=== PATIENT | male | born 1930 | race Asian ===

== ENCOUNTER 2017-05-27 10:33 | Inpatient (IN) | payer OTHER, MEDICARE ==
[~2017-05-27] VITALS: Ht 167.6 cm; Wt 71.2 kg
[~2017-05-27 10:33] MED LIST: AMLODIPINE BESYL5 M1 PO; ATENOLOL25 M1 PO; AZITHROMYCIN500 M3 PO; CALCIUM CARBON500 M2 PO; FUROSEMIDE80 M1 PO; LANTUS SOL100 UNIT/1 SC; LISINOPRIL5 M1 PO; NEPHRO-VITE TA0.8 MG PO; NOVOLOG FL100 UNIT/1 SC; PREDNISONE10 M2 PO; PROCRIT3000 UNIT/ IV; PROTONIX40 M3 PO
--- NOTE | 2017-05-27 10:37 | ED DYSPNEA/ASTHMA COMPLAINT ---
History of Present Illness General Chief Complaint: Dyspnea (COPD, CHF, Other) Stated Complaint: SOB Source: patient, old records, EMS Exam Limitations: no limitations Vital Signs & Intake/Output Vital Signs & Intake/Output Vital Signs Date Time Temp Pulse Resp B/P B/P Pulse O2 O2 Flow FiO2 Mean Ox Delivery Rate 05/27 1112 88 156/50 05/27 1112 87 98 05/27 1102 98.2 90 28 191/82 99 Nasal 2.0L Cannula 05/27 1054 94 05/27 1045 Nasal 2.0L Cannula Allergies Coded Allergies: No Known Allergies (11/03/16) Reconcile Medications Albuterol Sulfate (Ventolin Hfa) 90 MCG HFA.AER.AD 2 PUF INH Q4-6 PRN PRN SHORTNESS OF BREATH (Reported) Amlodipine Besylate 5 MG TABLET 1 TAB PO DAILY HTN Atenolol 25 MG TABLET 1 TAB PO DAILY blood pressure (Reported) Budesonide/Formoterol Fumarate (Symbicort 160-4.5 Mcg Inhaler) 160 MCG-4.5 MCG/ ACTUATION HFA.AER.AD 2 PUF INH BID BREATHING PROBLEMS (Reported) Furosemide 80 MG TABLET 1 TAB PO 2XW FLuid overload (Reported) Insulin Aspart, Recombinant (Novolog Flexpen) 100 UNIT/ML INSULN.PEN 1 UNIT SC TIDAC DM (Reported) Insulin Glargine,Hum.rec.anlog (Lantus Solostar) 100 UNIT/ML (3 ML) INSULN.PEN 4 UNIT SC QPM DIABETES MELLITUS (Reported) Lisinopril 5 MG TABLET 1 TAB PO DAILY blood pressure (Reported) Midodrine HCl 5 MG TABLET 1 TAB PO DAILY BEFORE DIALYSIS (Reported) Pantoprazole Sodium (Protonix) 40 MG TABLET.DR 1 TAB PO DAILY GERD Triage Nurses Notes Reviewed? yes HPI: Patient sent from dialysis for increasing shortness of breath. Staff states that they have noticed that he has been having increasing work of breathing over the past 2-3 dialysis sessions. They have been taking off more fluid than normal and attempt to help him however today it was more short of breath. Patient does have a history of COPD and is chronically on oxygen. Patient has a productive cough. He denies any chest pain or chest tightness. There is no nausea or vomiting. Patient finished his course of dialysis today and then came in for evaluation. Past History Medical History Any Pertinent Medical History? 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 No Review of Systems Review of Systems Constitutional: Reports: no symptoms. EENTM: Reports: no symptoms. Respiratory: Reports: see HPI, short of breath. Cardiovascular: Reports: no symptoms. GI: Reports: no symptoms. Genitourinary: Reports: no symptoms. Musculoskeletal: Reports: no symptoms. Skin: Reports: no symptoms. Neurological/Psychological: Reports: no symptoms. Hematologic/Endocrine: Reports: no symptoms. Immunologic/Allergic: Reports: no symptoms. All Other Systems: Reviewed and Negative Physical Exam Physical Exam General Appearance: well developed/nourished, alert, awake, anxious, moderate distress Head: atraumatic Eyes: Bilateral: PERRL, EOMI. Ears, Nose, Throat: normal pharynx, normal ENT inspection, hearing grossly normal Neck: normal inspection, supple, full range of motion, JVD Respiratory: respiratory distress, PROLONGED EXPIRATION WHEEZING SCATTERED RHONCHI Cardiovascular: regular rate/rhythm, edema Gastrointestinal: normal bowel sounds, soft, non-tender, no organomegaly Extremities: pedal edema Neurologic/Psych: no motor/sensory deficits, awake, alert, oriented x 3 Skin: intact, normal color, warm/dry Core Measures ACS in differential dx? Yes CVA/TIA Diagnosis No Sepsis Present: No Sepsis Focused Exam Completed? No Progress Differential Diagnosis: bronchitis, CHF, COPD, pneumonia Plan of Care: Orders Procedure Date/time Status Heart Healthy Diet 05/27 D Active Patient Data 05/27 1240 Active ED Holding Orders 05/27 1238 Active Admit to inpatient 05/27 1238 Active Vital Signs 05/27 1238 Active Code Status 05/27 1238 Active BLOOD CULTURE 05/27 1145 Active ARTERIAL BLOOD GAS (GEN) 05/27 1037 Complete Telemetry/Recording Studio Set Up Worker 05/27 1037 Active TROPONIN LEVEL 05/27 1037 Complete COMPREHENSIVE METABOLIC PANEL 05/27 1037 Complete CBC WITHOUT DIFFERENTIAL 05/27 1037 Complete EKG 05/27 1034 Active BIPAP 05/27 UNK Complete Current Medications Sig/Rina Start time Last Medication Dose Stop Time Status Admin Azithromycin 500 MG ONCE ONE 05/27 1145 AC (Zithromax) 05/27 1244 Dextrose/Water 250 ML (D5W) Laboratory Tests 05/27/17 1116: Anion Gap 19 H, Estimated GFR 14 L, BUN/Creatinine Ratio 8.3, Glucose 186 H, Calcium 9.3, Total Bilirubin 0.6, AST 23, ALT 27, Alkaline Phosphatase 235 H, Troponin I 0.03, Total Protein 8.3 H, Albumin 4.2, Globulin 4.1, Albumin/ Globulin Ratio 1.0 L, CBC w Diff NO MAN DIFF REQ, RBC 3.89 L, MCV 93.5, MCH 30.8, MCHC 32.9 L, RDW 14.8 H, MPV 9.5, Gran % 79.3 H, Lymphocytes % 7.6 L, Monocytes % 10.5 H, Eosinophils % 2.3, Basophils % 0.3, Absolute Granulocytes 5.1, Absolute Lymphocytes 0.5 L, Absolute Monocytes 0.7 H, Absolute Eosinophils 0.1, Absolute Basophils 0 05/27/17 1045: pH 7.26 *L, pCO2 49 H, pO2 120 H, HCO3 22, ABG O2 Sat (Measured) 97.0, Carboxyhemoglobin 0.7 L, O2 Concentration % 7L, O2 Delivery Method NEB TX, Phlebotomy Draw Site RIGHT RADIAL Microbiology 05/27 1232 BLOOD: Blood Culture - RECD 05/27 1223 BLOOD: Blood Culture - RECD Diagnostic Imaging: Viewed by Me: Radiology Read. Discussed w/RAD: Radiology Read. CXR Impression: PATIENT: LEN MADERA PRESENT AGE: 86 PATIENT ACCOUNT NO: [id number] : 30 LOCATION: [facility] ORDERING PHYSICIAN: Joey Sanchez MD SERVICE DATE: 05/27/17-1037 EXAM TYPE: RAD - XRY- PORTABLE CHEST XRAY EXAMINATION: XR PORTABLE CHEST CLINICAL INFORMATION: Shortness of breath. COMPARISON: 11/04/2016. TECHNIQUE: Portable frontal view of the chest was obtained. FINDINGS: Mild hyperinflated lung field is present bilaterally. Persistent stable mild bilateral perihilar, and upper lobar prominent bronchovascular markings are noted, may represent mild pulmonary venous congestion. No discrete superimposed focal airspace disease present. There is no pleural effusion present. The cardiomediastinal silhouette is within normal limit. Incidental note is made of a radiopaque stent projecting over the right infraclavicular region medially, unchanged. IMPRESSION: Possible mild pulmonary venous congestion, appears similar to prior study dated 11/04/2016. DICTATED BY: Dory Cornejo MD DATE/TIME DICTATED:05/27/171157 JAVA SYSTEMS ANALYST:TARUN DATE/TIME TRANSCRIBED:05/27/171157 CONFIDENTIAL, DO NOT COPY WITHOUT APPROPRIATE AUTHORIZATION. <Electronically signed in Other Vendor System> SIGNED BY: Dory Cornejo MD 05/27/17 1203 Initial ED EKG: NSR, nonspecific ST T wave chg Prior EKG: unchanged Rhythm Strip: normal sinus rhythm Departure Departure Disposition: STILL A PATIENT Condition: Stable Clinical Impression Primary Impression: Hypercapnic respiratory failure Referrals: Leslie Palmer MD (PCP/Family) Departure Forms: Customer Survey General Discharge Information Admission Note Spoke With: Jhonaa Cazares MD Documentation of Exam: Documentation of any treatments & extenuating circumstances including Concerns Regarding Discharge (functional status, medication knowledge or non-compliance, living conditions, etc.) that warrant an admission rather than observation: [ BIPAP, RESP THERAPY,PULM CONSULT, IV ABX, IVSTEROIDS, NEBS] Critical Care Note Critical Care Note Critical Care Time: mins: (90 MIN)
[2017-05-27] MEDS ORDERED: SYMBICORT 16010.2 GM INH (10:39)
[2017-05-27] MEDS ORDERED: MIDODRINE HCL5 M1 PO (10:42)
[2017-05-27] MEDS ORDERED: VENTOLIN HFA18 GM INH (10:43)
[2017-05-27 11:24] LABS: ABSOLUTE BASOPHIL COUNT 0 /CUMM (0.0-0.2); ABSOLUTE EOSINOPHIL COUNT 0.1 /CUMM (0.0-0.7); ABSOLUTE GRANULOCYTE CT 5.1 /CUMM (1.4-6.5); ABSOLUTE LYMPH COUNT 0.5 /CUMM (1.2-3.4); ABSOLUTE MONOCYTE COUNT 0.7 /CUMM (0.10-0.60); BASOPHIL % 0.3 % (0.0-2.0); EOSINOPHIL % 2.3 % (0-5); GRANULOCYTE % 79.3 % (42.2-75.2); HEMATOCRIT 36.3 % (42-52); MEAN CORPUSCULAR HGB 30.8 PG (27.0-31.0); MEAN CORPUSCULAR HGB CONC 32.9 G/DL (33.0-37.0); MEAN CORPUSCULAR VOLUME 93.5 FL (80.0-94.0); MEAN PLATELET VOLUME 9.5 FL (7.4-10.4); PLATELET COUNT 143 /CUMM (130-400); RBC DISTRIBUTION WIDTH 14.8 % (11.5-14.5); RED BLOOD CELL CT 3.89 /CUMM (4.70-6.10); WHITE BLOOD CELL COUNT 6.4 /CUMM (4.8-10.8)
--- NOTE | 2017-05-27 12:03 | RADIOLOGY REPORT ---
EXAMINATION: XR PORTABLE CHEST CLINICAL INFORMATION: Shortness of breath. COMPARISON: 11/04/2016. TECHNIQUE: Portable frontal view of the chest was obtained. FINDINGS: Mild hyperinflated lung field is present bilaterally. Persistent stable mild bilateral perihilar, and upper lobar prominent bronchovascular markings are noted, may represent mild pulmonary venous congestion. No discrete superimposed focal airspace disease present. There is no pleural effusion present. The cardiomediastinal silhouette is within normal limit. Incidental note is made of a radiopaque stent projecting over the right infraclavicular region medially, unchanged. IMPRESSION: Possible mild pulmonary venous congestion, appears similar to prior study dated 11/04/2016.
--- NOTE | 2017-05-27 13:35 | History & Physical ---
[facility]5: General Information and HPI MD Statement: I have seen and personally examined LEN MADERA and documented this H&P. The patient is a 86 year old M who presented with a patient stated chief complaint of [SOB]. Source of Information: patient, old records Exam Limitations: no limitations History of Present Illness: is an 86 yo man T2 DM on insulin complicated with ESRD on HD on / via AV fistula on the right arm for the past 6 years, COPD/asthma on 2 L oxygen at home and hypertension who was brought in with complaints of worsening shortness of breath. History was obtained from patient himself who speaks minimal [place]ar[place]uan and his son and [id number] was at bedside helping with history. Patient lives with his son at home, he was noted to be more SOB earlier this week (On Wednesday), shortness of breath happen at rest and exertion, he also complains of chronic cough with recently more phlegm whitish in color with no blood, he had dialysis every Wednesday//and Wednesday, they thought he was initially overloaded, as the nurse in his dialysis facility noticed that he became more short of breath, more fluid was taking off, and he was less than his dry weight with little improvement of his respiratory status, his daughter is a dietitian who scheduled him for 2 hours dialysis yesterday with also little improvement, today his family decided to bring him to the emergency department for more evaluation as they noticed that he became more tired and also he was examined by an HOMICIDE DETECTIVE at the dialysis facility who advised him to come to ED. Patient is not making urine. Family noticed that recently he started to have skin blister, he was seen by his PCP for that who prescribed [id number] ointment with little improvement, he never been treated for that with steroid, no recent steroid use, no recent antibiotic. I spoke with the dialysis facility who reported an HOMICIDE DETECTIVE examined the patient at their facility today who noticed that the patient has widespread wheezing and his respiratory status is not improving over the last 3 days so they encouraged him to go to the emergency department. Per his nurse his BP is usually runs low in 80's systolic, today at dialysis the lowest BP reported was 109 systolic. He is not complaint with his inhalers per the nurse, but family reports good complaince. Patient denies any chest pain, dizziness, sore throat, fever, chills, no sick contacts, no recent travel. Allergies/Medications Allergies: Coded Allergies: No Known Allergies (11/03/16) Home Med list Albuterol Sulfate (Ventolin Hfa) 90 MCG HFA.AER.AD 2 PUF INH Q4-6 PRN PRN SHORTNESS OF BREATH (Reported) Amlodipine Besylate 5 MG TABLET 1 TAB PO DAILY HTN Atenolol 25 MG TABLET 1 TAB PO DAILY blood pressure (Reported) Budesonide/Formoterol Fumarate (Symbicort 160-4.5 Mcg Inhaler) 160 MCG-4.5 MCG/ ACTUATION HFA.AER.AD 2 PUF INH BID BREATHING PROBLEMS (Reported) Furosemide 80 MG TABLET 1 TAB PO 2XW FLuid overload (Reported) Insulin Aspart, Recombinant (Novolog Flexpen) 100 UNIT/ML INSULN.PEN 1 UNIT SC TIDAC DM (Reported) Insulin Glargine,Hum.rec.anlog (Lantus Solostar) 100 UNIT/ML (3 ML) INSULN.PEN 4 UNIT SC QPM DIABETES MELLITUS (Reported) Lisinopril 5 MG TABLET 1 TAB PO DAILY blood pressure (Reported) Midodrine HCl 5 MG TABLET 1 TAB PO DAILY BEFORE DIALYSIS (Reported) Pantoprazole Sodium (Protonix) 40 MG TABLET.DR 1 TAB PO DAILY GERD Past History Travel History Traveled to [place] past 21 day No Medical History Neurological: NONE EENT: NONE Cardiovascular: hypertension Respiratory: asthma, COPD Gastrointestinal: NONE Renal: HEMODIALYSIS X 6 YRS Musculoskeletal: NONE Psychiatric: NONE Endocrine: DM Blood Disorders: NONE Cancer(s): 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 Ambulation: independent IADLs Independent: shopping, housework, finances, food prep, telephone, transportation , medication admin. Review of Systems Review of Systems Constitutional: Reports: no symptoms. Cardiovascular: Reports: no symptoms. Respiratory: Reports: cough, short of breath, sputum production, wheezing. GI: Reports: no symptoms. Genitourinary: Reports: no symptoms. Musculoskeletal: Reports: no symptoms. Skin: Reports: no symptoms. Neurological/Psychological: Reports: no symptoms. Hematologic/Endocrine: Reports: no symptoms. Immunologic/Allergic: Reports: no symptoms. All Other Systems: Reviewed and Negative Exam & Diagnostic Data Last 24 Hrs of Vital Signs/I&O Vital Signs Date Time Temp Pulse Resp B/P B/P Pulse O2 O2 Flow FiO2 Mean Ox Delivery Rate 05/27 1643 98 BIPAP 30% 04/05 1600 97.2 80 26 160/64 98 BIPAP 30% 04/05 1535 85 98 04/05 1456 97.1 80 22 160/60 100 BIPAP 30% 04/05 1424 88 95 04/05 1308 96.8 80 22 164/60 99 BIPAP 04/ 1112 88 156/50 04/05 1112 87 98 04/05 1102 98.2 90 28 191/82 99 Nasal 2.0L Cannula / 1054 94 04/05 1045 Nasal 2.0L Cannula Intake & Output 05/27 1600 04/05 0800 04/05 0000 Intake Total Output Total Balance Patient 170 lb Weight Weight Reported by Patient Measurement Method Physical Exam General Appearance Alert, Oriented X3, Cooperative, Moderate Distress Skin there isskin breaks and bilateral lower extremities, with no hotness, redness Skin Temp/Moisture Exam: Warm/Dry HEENT Atraumatic, PERRLA, EOMI, Mucous Membr. moist/pink Neck Supple, No JVD, No thryomegaly Lymphatic Axillary nl, Cervical nl Cardiovascular Regular Rate, Normal S1, Normal S2 Lungs decreased air entry bilaterally with coarse rhonchi, and wheezing bilaterally Abdomen Normal Bowel Sounds, Soft, No Tenderness Neurological Normal Gait, Normal Speech, Strength at 5/5 X4 Ext, Sensation Intact, Cranial Nerves 3-12 NL Extremities Normal Pulses, +1 edema in bilateral lower extremity Vascular Normal Pulses, Pulses Symmetrical, AV fistula in the right arm is functioning with positive bruit Diagnostic Data EKG Results Sinus rhythm, rate 90, prolonged QT, QTC is 509, with right axis diffusion not changed from his previous EKG CXR Results Lung hyperinflation. Stable cardiomegaly. No consolidations. Assessment/Plan Assessment: is an 86 yo man T2 DM on insulin complicated with ESRD on HD on via AV fistula on the right arm for the past 6 years, COPD/asthma on 2 L oxygen at home and hypertension who was brought in with complaints of worsening shortness of breath admitted for COPD/asthma exacerbation. Assessment: #COPD/asthma exacerbation with hypoventilation #Mixed respiratory/ metabolic acidosis with anion gap #ESRD on hemodialysis #Hx. of hypertension #Microcytic anemia related to chronic disease and renal failure #Elevated alkaline phosphatase Plan: * We'll admit the patient to ICU at least for 24 hour given that he had initial ABG which showed mixed metabolic/respiratory acidosis, which was repeated 2 hour after he was initiated on BiPAP with little improvement * Nephrology consult, to see the patient (per Dr. Escalante no plan for dialysis today) * TRC/nebs * His last echo was done at October 2016 with normal ejection fraction * He received 125 mg Solu-Medrol at emergency department will start him on IV Solu-Medrol 40 mg every 8 hour, assess his respiratory status tomorrow and taper as tolerated * Case was discussed with Dr. Lock, will not check further ABG today * IV azithromycin * Will check Mg, Po4 * He has an elevated alkaline phosphatase however patient denies any right upper quadrant pain, I will order right upper quadrant ultrasound to rule out biliary pathology/stone * Consider repeating his chest x-ray if any worsening of his respiratory status * Blood Cx sent by ED please follow up , will add sputum Cx DVT prophylaxis SC heparin He is full code As Ranked By This Provider Problem List: 1. Hypercapnic respiratory failure 2. Metabolic acidosis Core Measures/Misc (11/08) Acute Coronary Syndrome ACS Diagnosis: No Congestive Heart Failure Congestive Heart Failure Diagnosis No Cerebrovascular Accident CVA/TIA Diagnosis: No VTE (View Protocol) VTE Risk Factors Age>40 No Mechanical VTE Prophylaxis d/t N/A MechProphylax Ordered No VTE Pharm Prophylaxis d/t NA PharmProphylax ordered Sepsis (View protocol) Sepsis Present: No Anish Lock MD 05/27/17 1723: Attending MD Review Statement Attending Statement Attending MD Statement: examined this patient, discuss w/resident/PA/ENTERPR[employer] SALES EXECUTIVE, agreed w/resident/PA/[employer] SALES EXECUTIVE, discussed with family, reviewed EMR data (avail), discussed with nursing, discussed with case mgmt, reviewed images, amended to note Attending Assessment/Plan: Anish Bates M.D. have examined this patient, reviewed available EMR data, personally reviewed images, discussed with resident/PA/[employer] SALES EXECUTIVE, discussed management plan with housestaff and nursing staff, discussed managment plan all of healthcare providers, discussed management plan with patient and/or family, agreed with resident/PA/[employer] SALES EXECUTIVE. The past history and parts of the chart have been autopopulated. Impression 86 year old man * acute hypoxemic respiratory failure * ESRD on HD Plan -solumedrol 40mg iv q8h -trc/nebs -renal consultation -HD per nephrology -ceftriaxone/zithromax for now TTS 40 min
[2017-05-27 16:00] VITALS: BP 160/64
--- NOTE | 2017-05-27 17:07 | Event Note ---
Event Note Event Note: P.t arrive from the ED on Bipap, we will cont the Bipap overnight if neededs and we will recheck ABG in AM as recommended by . his BP high we will give him his home dose of Norvac 5 mg with target SBP<150.
--- NOTE | 2017-05-27 22:27 | ULTRASOUND REPORT ---
EXAMINATION: ABDOMINAL ULTRASOUND LIMITED CLINICAL INFORMATION: Elevated alkaline phosphatase. COMPARISON: None. TECHNIQUE: Real-time imaging of the right upper quadrant abdominal viscera. FINDINGS: PANCREAS: Evaluation of the pancreas is quite limited due to overlying bowel gas. LIVER: The liver is of normal size and echogenicity without focal lesions nor intrahepatic biliary ductal dilation. GALLBLADDER: Normal. The gallbladder is physiologically distended without evidence of stones, sludge, polyps, wall thickening or pericholecystic fluid. COMMON BILE DUCT: Normal in caliber measuring 0.4 cm in diameter. RIGHT KIDNEY: There is neither hydronephrosis nor nephrolithiasis. The right kidney is atrophic measuring 7.2 cm in long axis. There is diffuse renal cortical thinning. FREE FLUID: None. IMPRESSION: Atrophic right kidney without hydronephrosis nor nephrolithiasis. Otherwise, unremarkable limited right upper quadrant ultrasound.
[2017-05-28] VITALS: BP 128/52
[2017-05-28 04:21] LABS: ABSOLUTE BASOPHIL COUNT 0 /CUMM (0.0-0.2); ABSOLUTE EOSINOPHIL COUNT 0 /CUMM (0.0-0.7); ABSOLUTE GRANULOCYTE CT 3.6 /CUMM (1.4-6.5); ABSOLUTE LYMPH COUNT 0.2 /CUMM (1.2-3.4); ABSOLUTE MONOCYTE COUNT 0.1 /CUMM (0.10-0.60); BASOPHIL % 0 % (0.0-2.0); EOSINOPHIL % 0 % (0-5); GRANULOCYTE % 92.1 % (42.2-75.2); HEMATOCRIT 34.1 % (42-52); MEAN CORPUSCULAR HGB 30.6 PG (27.0-31.0); MEAN CORPUSCULAR HGB CONC 32.7 G/DL (33.0-37.0); MEAN CORPUSCULAR VOLUME 93.4 FL (80.0-94.0); MEAN PLATELET VOLUME 10.2 FL (7.4-10.4); PLATELET COUNT 134 /CUMM (130-400); RBC DISTRIBUTION WIDTH 15.3 % (11.5-14.5); RED BLOOD CELL CT 3.65 /CUMM (4.70-6.10); WHITE BLOOD CELL COUNT 3.9 /CUMM (4.8-10.8)
--- NOTE | 2017-05-28 07:44 | PN- Resident CRCU ---
Skyler FARFAN,Nicki 05/28/17 0743: Subjective HPI/CRCU Issues: Overnight events: Patient remains on BiPAP overnight. Patient speaks limited Irish. Speaks parminder/maco. Patient this morning states he continues to have difficulty breathing however would like to remove his BIPAP mask. Patient asking to use the restroom. Patient reports continued cough with white sputum. Denies hemoptysis. Denies any other symptoms including chest pain. Vitals: MAXIMUM TEMPERATURE, heart rate 70s to 80s, respiration rate 22-32, blood pressure 121/60, saturating between 98-100% on 5 Pap at FiO2 of 30%, rate of 24, IPAP 20 and EPAP 6. Total intake 490, 0 output- patient has end-stage renal disease on dialysis. Accucheck: 185, 185, 185,160, 196 Labs: WBC 3.9, H&H 11 and 34, platelet count 134 Sodium 137, potassium 6.2, chloride 99, bicarbonate 19, anion gap 19, BUN 56, creatinine 5.8 Objective Vital Signs & I&O Last 8 Hrs of Vitals and I&O: Vital Signs Date Time Temp Pulse Resp B/P B/P Pulse O2 O2 Flow FiO2 Mean Ox Delivery Rate / 0857 97 BIPAP 30% /06 0857 98 04/06 0830 92 126/50 04/06 0829 92 126/50 04/06 0829 92 126/50 04/06 0815 96 04/06 0800 98 BIPAP 60% /06 0800 97.9 82 24 126/60 98 BIPAP 60% /06 0557 63 97 /06 0400 97 BIPAP 30% / 0333 81 95 /06 0321 82 98 Intake & Output 05/28 1600 Intake Total Output Total Balance Patient 158 lb Weight Intake & Output 05/28 1600 Intake Total Output Total Balance Patient 158 lb Weight Exam General Appearance: well developed/nourished, awake, mild distress, on BIPAP Head: atraumatic, normal appearance Respiratory: rhonchi, wheezing, respiratory distress (when BIPAP is taken off) Cardiovascular: regular rate/rhythm Gastrointestinal: normal bowel sounds, soft, non-tender, distention Extremities: no edema Current Medications: Current Medications Sig/Rina Start time Last Medication Dose Route Stop Time Status Admin Albuterol Sulfate 3 ML EVERY 4 HRS/AWAKE 05/28 1999 AC 05/28 INH 0756 Albuterol Sulfate 2 PUF Q4-6 PRN PRN 05/27 1545 AC INH Albuterol Sulfate 3 ML ONCE ONE 05/27 1045 DC 04 INH 05/27 1046 1051 Amlodipine Besylate 5 MG DAILY 05/28 1000 DC PO Amlodipine Besylate 5 MG DAILY 05/27 1830 AC 05/28 PO 0830 Atenolol 25 MG DAILY 05/28 1000 AC 05/28 PO 0829 Azithromycin 500 MG DAILY 05/28 1000 AC Dextrose/Water 250 ML IV Azithromycin 500 MG ONCE ONE 05/27 1530 CAN Dextrose/Water 250 ML IV 05/27 1629 Azithromycin 500 MG ONCE ONE 05/27 1145 DC 05/27 Dextrose/Water 250 ML IV 05/27 1244 1253 Budesonide/ 2 PUF BID 05/27 2200 AC 05/28 Formoterol Fumarate INH 0830 Ceftriaxone Sodium 1,000 MG DAILY 05/28 1000 AC IV Ceftriaxone Sodium 0 .STK-MED ONE 05/27 1211 DC .ROUTE Ceftriaxone Sodium 1,000 MG ONCE ONE 05/27 1145 DC 05/27 IV 05/27 1146 1248 Furosemide 80 MG DAILY 05/28 1000 AC 05/28 PO 0830 Heparin Sodium 5,000 UNIT Q8 05/27 1400 AC 05/28 (Porcine) SC 0536 Insulin Aspart 0 TIDAC 05/27 1830 AC 05/27 SC 1833 Insulin Detemir 4 UNITS DAILY 05/28 1000 AC SC Ipratropium [place] 2.5 ML ONCE ONE 05/27 1045 DC 04 INH 05/27 1046 1051 Lisinopril 5 MG DAILY 05/28 1000 AC 05/28 PO 0829 Melatonin 3 MG ONCE ONE 05/27 2115 DC 04/05 PO 05/27 2116 2120 Methylprednisolone 40 MG Q8H 05/27 2100 AC 05/28 IV 0536 Methylprednisolone 0 .STK-MED ONE 05/27 1211 DC .ROUTE Methylprednisolone 125 MG ONCE ONE 05/27 1145 DC 05/27 IV 05/27 1146 1245 Midodrine 5 MG SEE ADMIN CRITERIA.. 05/27 1545 AC PO Pantoprazole Sodium 40 MG DAILY 05/28 1000 AC 05/28 IV 0830 Impression/Plan Impression/Problem List Impression: Patient is an 86-year-old male with past medical history of insulin-dependent diabetes mellitus, end-stage renal disease on dialysis every Wednesday, , Wednesday with an AV fistula in his right arm, COPD on 2 L oxygen at home, asthma , hypertension who presented this admission with worsening dyspnea. Patient was admitted to the ICU for management of the following: Respiratory: Acute Hypoxic and Hypercarbic Respiratory Distress secondary to Acute COPD Exacerbation Patient is requiring BIPAP. Patient's ABG shows a mixed respiratory acidosis pictures with metabolic acidosis. Patient continues to remain acidotic on BIPAP. Patient has increased respiratory distress and use of accessort muscles off BIPAP. Chest xray shows no focal consolidation or signs of fluid overload. - Continue BIPAP - TRC/ Neb treatments q4h - IV Ceftriaxone and Azithromycin - Symbicort - IV Solu-medrol 40mg q8h Infectious: COPD Exacerbation - See above Cardiac: History of HTN: - continue to monitor bp. Reported bp by dialysis on day of admission was systolic of 109. Patient's bp during his admission remains elevated. Patient had and ECHO of LVEF >60% with right ventricular systolic pressure >69 mmHg. 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 Metabolic: Diabetes Mellitus -Insulin SS, Accuchecks -Levemir 4 units daily Hyperkalemia -Patient has ESRD. Patient will received dialysis today. - continue to monitor K - continue to monitor on tele Ailementary: Renal dialysis diet with salt restriction Neurology: None Nephrology: ESRD on HD Wednesday, , Wednesday. - renal ultrasound pending - dialysis today - continue to monitor I/O - continue to monitor electrolytes DVT PPx: Heparin SQ and ALPS GI PPx: IV Protonix Problem List: 1. Hypercapnic respiratory failure 2. Metabolic acidosis Pain Ratin Tomorrow's Labs & Rationales: cbc icu bundle abg Plan DVT/Prophylaxis: mechanical, pharmacological Anish Lock MD 05/28/17 1450: Attending MD Review Statement Attending Sign Off Attending Cosign Statement: I have: examined this patient, reviewed aval EMR data, personally reviewd images, discussd w/resident/PA/SOLVENT RECOVERER, discussed mgmt plan w/corie, discussed mgmt plan w/CM, discussed mgmt plan w/pt, agreed w/resident/PA/SOLVENT RECOVERER, amended to note. Other Findings: I, Anish Hayde, M.D. have examined this patient, reviewed available EMR data, personally reviewed images, discussed with resident/PA/SOLVENT RECOVERER, discussed management plan with housestaff and nursing staff, discussed managment plan all of healthcare providers, discussed management plan with patient and/or family, agreed with resident/PA/SOLVENT RECOVERER. The past history and parts of the chart have been autopopulated. Impression 86 year old man * acute hypoxemic respiratory failure * ESRD on HD Plan -bipap for reduction of work of breathing -solumedrol 40mg iv q8h -trc/nebs -renal consultation -HD per nephrology -ceftriaxone/zithromax for now TTS 35 min
[2017-05-28 08:00] VITALS: BP 126/60
--- NOTE | 2017-05-28 08:09 | RADIOLOGY REPORT ---
EXAMINATION: XR PORTABLE CHEST CLINICAL INFORMATION: Tachypnea, COPD, possible pneumonia COMPARISON: 05/27/2017 TECHNIQUE: Portable frontal view of the chest was obtained. FINDINGS: The lungs are clear with no focal consolidation. No evidence of pneumothorax, pulmonary edema, or pleural effusions. The cardiomediastinal contour is unremarkable. No acute osseous findings are seen. Stent is again seen projecting over the right infraclavicular region medially. IMPRESSION: No focal consolidation identified.
[2017-05-28 12:00] VITALS: BP 110/54
[2017-05-28 16:00] VITALS: BP 130/60
--- NOTE | 2017-05-28 16:11 | Cons- Nephrology ---
General Information and HPI Consulting Request Date of Consult: 05/28/17 Requested By: Anish Lock MD Reason for Consult: Management of ESRD Source of Information: patient, old records Exam Limitations: clinical condition, poor historian History of Present Illness: The patient is an 86-year-old man with dialysis-dependent end-stage renal disease due to diabetes mellitus with a background that includes COPD/asthma and smoldering multiple myeloma. He is now admitted because of worsening shortness of breath over the past several days and perhaps weeks which has not responded to more aggressive ultrafiltration. His been no fever or chills. He was sent in after outpatient dialysis yesterday because of persistent shortness of breath despite an additional ultrafiltration session during the week. He is being treated for exacerbation of COPD with possible pulmonary infection. Past medical history is positive for diabetes mellitus, hypertension, CHF, COPD, smoldering multiple myeloma, ESRD on dialysis since 2009. Medications: See below Allergies: No known drug allergies Family history negative for any known kidney disease Social history ex-smoker without history of alcohol or drug abuse Allergies/Medications Allergies: Coded Allergies: No Known Allergies (11/03/16) Home Med List: Albuterol Sulfate (Ventolin Hfa) 90 MCG HFA.AER.AD 2 PUF INH Q4-6 PRN PRN SHORTNESS OF BREATH (Reported) Amlodipine Besylate 5 MG TABLET 1 TAB PO DAILY HTN Atenolol 25 MG TABLET 1 TAB PO DAILY blood pressure (Reported) Budesonide/Formoterol Fumarate (Symbicort 160-4.5 Mcg Inhaler) 160 MCG-4.5 MCG/ ACTUATION HFA.AER.AD 2 PUF INH BID BREATHING PROBLEMS (Reported) Furosemide 80 MG TABLET 1 TAB PO 2XW FLuid overload (Reported) Insulin Aspart, Recombinant (Novolog Flexpen) 100 UNIT/ML INSULN.PEN 1 UNIT SC TIDAC DM (Reported) Insulin Glargine,Hum.rec.anlog (Lantus Solostar) 100 UNIT/ML (3 ML) INSULN.PEN 4 UNIT SC QPM DIABETES MELLITUS (Reported) Lisinopril 5 MG TABLET 1 TAB PO DAILY blood pressure (Reported) Midodrine HCl 5 MG TABLET 1 TAB PO DAILY BEFORE DIALYSIS (Reported) Pantoprazole Sodium (Protonix) 40 MG TABLET.DR 1 TAB PO DAILY GERD Review of Systems Review of Systems: Gen.: Appetite usually good, no weight loss or weight gain Skin: No rash or jaundice HEENT: No visual or hearing disturbances, no discharge Cardiopulmonary: + shortness of breath and cough (see HPI), no chest pain, orthopnea GI: No nausea, vomiting, abdominal pain, diarrhea : No dysuria, hematuria or other symptoms referable to the urinary tract Musculoskeletal: No arthralgias, arthritis, myalgias Neuro: No altered mental status, paresthesias Past History Travel History Traveled to [place] past 21 day No Medical History Blood Transfusion Hx: No Neurological: NONE EENT: NONE Cardiovascular: CHF, hypertension Respiratory: asthma, COPD Gastrointestinal: GERD Hepatic: NONE Renal: HEMODIALYSIS X 6 YRS ADRIENNE AV FISTULA Musculoskeletal: NONE Psychiatric: NONE Endocrine: DM Blood Disorders: NONE Cancer(s): NONE 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 Ambulation: independent IADLs Independent: shopping, housework, finances, food prep, telephone, transportation , medication admin. Exam & Diagnostic Data Vital Signs and I&O Vital Signs Date Time Temp Pulse Resp B/P B/P Pulse O2 O2 Flow FiO2 Mean Ox Delivery Rate 05/28 1356 87 98 05/28 1200 99 BIPAP 60% 05/28 1200 97.6 64 24 110/54 99 BIPAP 60% 05/28 1152 67 95 05/28 1135 98 05/28 0857 97 BIPAP 30% 05/28 0857 98 05/28 0830 92 126/50 04/06 0829 92 126/50 04/06 0829 92 126/50 04/06 0815 96 04/ 0800 98 BIPAP 60% 05/28 0800 97.9 82 24 126/60 98 BIPAP 60% 06 0557 63 97 05/28 0400 97 BIPAP 30% 05/28 0333 81 95 /06 0321 82 98 05/28 0127 96 BIPAP 30% 05/28 0102 78 99 0406 0000 95 BIPAP 30% 05/28 0000 98.0 76 29 128/52 98 BIPAP 30% 05/27 2333 85 95 05/27 2104 97 BIPAP 30% 05/27 2033 BIPAP 30% 05/28 1999 75 99 05/27 BIPAP 30% 05/28 1939 97.6 75 27 162/62 Intake & Output 05/28 0400 05/27 04005/26 040 Intake Total 1050 460 Output Total 0 0 Balance 1050 460 Intake, IV 340 240 Intake, Oral 710 220 Number 1 0 Bowel Movements Output, Urine 0 0 Patient 158 lb 158 lb 170 lb Weight Weight Bed scale Reported by Patient Measurement Method Physical Exam: General: Well-developed elderly male in moderate respiratory distress on BiPAP Skin: No rash or jaundice HEENT: Conjunctivae pale, sclerae anicteric, mucous membranes dry Neck: Without masses or thyromegaly, no supraclavicular or cervical adenopathy Chest: Diffuse rhonchi, wheezes and rales Heart: Regular rate and rhythm without S3 or rub; heart sounds distant Abdomen: Soft and nontender without palpable masses or organomegaly Extremities: Without cyanosis or edema Neuro: Awake, no focal findings, no asterixis or myoclonus Assessment/Plan Assessment/Recommendations Assessment: 86-year-old gentleman with dialysis-dependent end-stage renal disease and a background of COPD now comes in with worsening shortness of breath of at least several days duration consistent with exacerbation of COPD. He has not responded to more aggressive ultrafiltration as an outpatient which in itself has been difficult because of his tendency toward hypotension during dialysis. He also has a tendency toward hyperkalemia as an outpatient. His potassium today was elevated at 6.2. Recommendations: 1. Although I do not believe that volume overload is playing any significant role in his symptoms, in view of the fact that he is hyperkalemic, we will go ahead and do a short dialysis treatment today to both lower potassium and removal little bit more fluid. 2. His regularly scheduled dialysis session will take place here tomorrow and then on his usual TTS schedule 3. Continue therapy of COPD exacerbation with steroids, respiratory treatments and antibiotics Thank you. We will follow along with you.
[2017-05-29] VITALS: BP 118/50
[2017-05-29 04:56] LABS: ABSOLUTE BASOPHIL COUNT 0 /CUMM (0.0-0.2); ABSOLUTE EOSINOPHIL COUNT 0 /CUMM (0.0-0.7); ABSOLUTE GRANULOCYTE CT 8.5 /CUMM (1.4-6.5); ABSOLUTE LYMPH COUNT 0.3 /CUMM (1.2-3.4); ABSOLUTE MONOCYTE COUNT 0.3 /CUMM (0.10-0.60); BASOPHIL % 0 % (0.0-2.0); EOSINOPHIL % 0 % (0-5); HEMATOCRIT 35.9 % (42-52); MEAN CORPUSCULAR HGB 30.1 PG (27.0-31.0); MEAN CORPUSCULAR HGB CONC 32.4 G/DL (33.0-37.0); MEAN CORPUSCULAR VOLUME 93.1 FL (80.0-94.0); MEAN PLATELET VOLUME 10.5 FL (7.4-10.4); PLATELET COUNT 165 /CUMM (130-400); RBC DISTRIBUTION WIDTH 15.4 % (11.5-14.5); RED BLOOD CELL CT 3.86 /CUMM (4.70-6.10)
[2017-05-29 05:48] LABS: WHITE BLOOD CELL COUNT 9.1 /CUMM (4.8-10.8)
[2017-05-29 08:00] VITALS: BP 120/60
--- NOTE | 2017-05-29 08:31 | PN- Resident CRCU ---
Subjective HPI/CRCU Issues: Patient still in ICU requiring BiPAP most of the times and dialysis. I followed up and examined the patient today. He is resting comfortably in bed, still in BiPAP, but has been off BiPAP, on nasal cannula as breaks, can speak in full sentences in between. He has been producing yellow color sputum per patient. No fever, chills, chest pain, palpitations, worsening of conditions. 24 Hour Events: Patient received a short course of dialysis yesterday for hyperkalemia. Still on BiPAP. Objective Vital Signs & I&O Last 8 Hrs of Vitals and I&O: Vital Signs Date Time Temp Pulse Resp B/P B/P Pulse O2 O2 Flow FiO2 Mean Ox Delivery Rate 05/29 0921 20 97 Nasal 3.0L Cannula 05/29 0810 98 BIPAP 30% 05/29 0810 68 98 05/29 0800 97.8 68 22 120/60 96 BIPAP 30% 05/29 0800 96 BIPAP 30% 05/29 0645 63 97 05/29 0400 97 BIPAP 30% 05/29 0356 65 98 05/29 0325 63 99 05/29 0039 68 97 04/07 0000 98 BIPAP 30% 05/29 0000 97.4 63 24 118/50 98 BIPAP 30% 05/28 2135 64 99 04 2000 96 BIPAP 30% 05/28 1908 80 97 04/06 1844 74 96 04/06 1716 78 94 04/06 1650 96 Nasal 3.0L Cannula 05/28 1600 97 Nasal 3.0L Cannula 05/28 1600 98.0 74 22 130/60 97 Nasal 3.0L Cannula 05/28 1356 87 98 04 1200 99 BIPAP 60% 04/06 1200 97.6 64 24 110/54 99 BIPAP 60% 05/28 1152 67 95 04/ 1135 98 Exam General Appearance: well developed/nourished, alert, awake, anxious, mild distress (respiratory), on BiPAP, can speak in full sentences when off BiPAP (on NC) but gets tachypneic Head: atraumatic, normal appearance Neck: normal inspection, supple, full range of motion Respiratory: chest non-tender, rhonchi, wheezing, respiratory distress (mild) Cardiovascular: regular rate/rhythm, edema Gastrointestinal: normal bowel sounds, soft, non-tender Extremities: normal inspection, normal capillary refill, normal range of motion Cranial Nerves: normal hearing, normal speech, PERRL, grossly intact Skin: intact, normal color, warm/dry Skin Temp/Moisture Exam: Warm/Dry Sepsis Skin Exam (color): Normal for Ethnicity Sepsis Peripheral Pulse Location: Radial Sepsis Peripheral Pulse Exam: Normal Sepsis Cap Refill Exam: <2 Sec Central Line Site: - Nutrition Nutrition: P.O. diet Current Medications: Current Medications Sig/Rina Start time Last Medication Dose Route Stop Time Status Admin Albuterol Sulfate 3 ML EVERY 4 HRS/AWAKE 05/27 2000 AC 05/29 INH 0816 Albuterol Sulfate 2 PUF Q4-6 PRN PRN 05/27 1545 AC INH Amlodipine Besylate 5 MG DAILY 05/27 1830 AC 05/28 PO 0830 Atenolol 25 MG DAILY 05/28 1000 DC 05/28 PO 0829 Azithromycin 500 MG DAILY 05/28 1000 AC 05/29 Dextrose/Water 250 ML IV 0905 Budesonide/ 2 PUF BID 05/27 2200 AC 05/29 Formoterol Fumarate INH 0905 Ceftriaxone Sodium 1,000 MG DAILY 05/28 1000 AC 05/28 IV 1636 Furosemide 80 MG DAILY 05/28 1000 AC 05/29 PO 0844 Heparin Sodium 5,000 UNIT Q8 05/27 1400 AC 05/29 (Porcine) SC 0534 Insulin Aspart 0 TIDAC 05/27 1830 AC 05/29 SC 0845 Insulin Detemir 4 UNITS DAILY 05/28 1000 AC 05/29 SC 0845 Lisinopril 5 MG DAILY 05/28 1000 AC 05/28 PO 0829 Methylprednisolone 40 MG Q8H 05/27 2100 AC 05/29 IV 0533 Midodrine 5 MG SEE ADMIN CRITERIA.. 05/27 1545 AC PO Pantoprazole Sodium 40 MG DAILY 05/28 1000 AC 05/29 IV 0846 Impression/Plan Impression/Problem List Impression: 86-year-old male with past history of insulin-dependent diabetes mellitus, end- stage renal disease on dialysis every Wednesday//Wednesday via AV fistula Rt arm, COPD on 2 L oxygen at home, asthma, hypertension, who presented with worsening dyspnea and hypotension during his past to dialysis sessions the latest being on the day of admission. He is currently being managed in the ICU for the following issues: Respiratory Acute hypoxic hypercapnic respiratory failure, secondary to COPD exacerbation Patient's clinical picture, ABG, chest x-ray is suggestive of COPD exacerbation, and the patient initially received IV steroids, IV ceftriaxone and azithromycin, and ventilation by BiPAP. He is still producing yellow sputum, although he does not have any fever/chills reported in the past 24 hours. -Continue BiPAP, TRC/nebs -IV antibiotics has been switched to levofloxacin, dose adjusted per his renal status -IV steroids frequency changed from every 8 hours to daily -We'll continue to have breaks in BiPAP, continuing with nasal cannula in between -Sending a LRC again, as the previous ones were cancelled - will follow the culture results Infectious COPD exacerbation, likely due to infection, being treated with PO levothyroxine as of today Cardiology History of hypertension Although patient has a tendency to drop his blood pressure during dialysis sessions, his blood pressure has been running high since his admission. -Continue lisinopril, amlodipine -Atenolol has been held, in view of his ongoing bronchospasm Hematology Anemia, likely secondary to his renal condition/ESRD Metabolic Diabetes mellitus His blood sugar has been running high around 150s to 200s, partly attributed to diabetes, with steroids ongoing, hopefully will improve as we taper down his steroids -Continue to monitor blood sugar, insulin sliding scale, and long-acting insulin Levemir. Hyperkalemia Today's potassium level is 5.5, status post short dialysis session yesterday for hyperkalemia of 6.2. He is due for his regular dialysis session later today. -We'll continue to watch closely Alimentary Renal dialysis diet, feeding orally, no issues Neurology No issues Nephrology ESRD patient on hemodialysis Wednesday//Wednesday, last session was for 2 hours yesterday afternoon for hyperkalemia of 6.2, his regular sessions should be later today. -We'll follow nephrology recommendations No catheters/tubes Diet: Renal dialysis diet DVT ppx: SQ Heparin, ALPS Code status: Full code Problem List: 1. Acute on chronic respiratory failure with hypoxia and hypercapnia 2. COPD with exacerbation 3. ESRD on dialysis 4. Diabetes mellitus 5. Hyperkalemia, diminished renal excretion 6. Hypertension Pain Ratin Pain Goal: Pain 4 or less Pain Plan: prn Tomorrow's Labs & Rationales: ICU lab bundle, CBC, follow up LRC Plan DVT/Prophylaxis: mechanical, pharmacological
--- NOTE | 2017-05-29 10:46 | PN- Pulmonary ---
Subjective HPI/Critical Care Issues: Patient still in ICU requiring BiPAP most of the times and dialysis. He is resting comfortably in bed, still in BiPAP, but has been off BiPAP, on nasal cannula as breaks, can speak in full sentences in between. He has been producing yellow color sputum per patient. No fever, chills, chest pain, palpitations, worsening of conditions. Objective Current Medications: Current Medications Sig/Rina Start time Last Medication Dose Route Stop Time Status Admin Albuterol Sulfate 3 ML EVERY 4 HRS/AWAKE 05/27 2000 AC 05/29 INH 0816 Albuterol Sulfate 2 PUF Q4-6 PRN PRN 05/27 1545 AC INH Amlodipine Besylate 5 MG DAILY 05/27 1830 AC 05/28 PO 0830 Atenolol 25 MG DAILY 05/28 1000 DC 05/28 PO 0829 Azithromycin 500 MG DAILY 05/28 1000 AC 05/29 Dextrose/Water 250 ML IV 0905 Budesonide/ 2 PUF BID 05/27 2200 AC 05/29 Formoterol Fumarate INH 0905 Ceftriaxone Sodium 1,000 MG DAILY 05/28 1000 AC 05/28 IV 1636 Furosemide 80 MG DAILY 05/28 1000 AC 05/29 PO 0844 Heparin Sodium 5,000 UNIT Q8 05/27 1400 AC 05/29 (Porcine) SC 0534 Insulin Aspart 0 TIDAC 05/27 1830 AC 05/29 SC 0845 Insulin Detemir 4 UNITS DAILY 05/28 1000 AC 05/29 SC 0845 Lisinopril 5 MG DAILY 05/28 1000 AC 05/28 PO 0829 Methylprednisolone 40 MG Q8H 05/27 2100 AC 05/29 IV 0533 Midodrine 5 MG SEE ADMIN CRITERIA.. 05/27 1545 AC PO Pantoprazole Sodium 40 MG DAILY 05/28 1000 AC 05/29 IV 0846 Vital Signs & I&O Last 24 Hrs of Vitals and I&O: Vital Signs Date Time Temp Pulse Resp B/P B/P Pulse O2 O2 Flow FiO2 Mean Ox Delivery Rate 05/29 0821 20 97 Nasal 3.0L Cannula 05/29 809 98 BIPAP 30% 05/29 0810 68 98 05/29 0800 97.8 68 22 120/60 96 BIPAP 30% 05/29 0645 63 97 05/29 0400 97 BIPAP 30% 05/29 0356 65 98 05/29 0325 63 99 05/29 0039 68 97 05/29 0000 98 BIPAP 30% 05/29 0000 97.4 63 24 118/50 98 BIPAP 30% 05/28 2135 64 99 05/29 1999 96 BIPAP 30% 05/28 1908 80 97 05/28 1844 74 96 05/28 1716 78 94 05/28 1650 96 Nasal 3.0L Cannula 05/28 1600 97 Nasal 3.0L Cannula 05/28 1600 98.0 74 22 130/60 97 Nasal 3.0L Cannula 05/28 1356 87 98 05/28 1200 99 BIPAP 60% 05/28 1200 97.6 64 24 110/54 99 BIPAP 60% 05/28 1152 67 95 05/28 1135 98 Intake & Output 05/29 1600 05/29 0800 05/29 0000 Intake Total 0 480 Output Total 1400 Balance 0 -920 Intake, IV 0 0 Intake, Oral 0 480 Number 1 0 0 Bowel Movements Output, 1400 Dialysate Output, Urine 0 Patient 155 lb Weight Weight Bed scale Measurement Method Laboratory Tests 05/29 05/29 0400 0330 Blood Gas pH (7.35 - 7.45 PH) 7.26 *L pCO2 (35 - 45 TORR) 51 H pO2 (80 - 100 TORR) 96 HCO3 (21 - 28 MEQ/L) 23 ABG O2 Sat (Measured) (>96.0 %) 95.0 L P-50 (Temp Corrected) Y Carboxyhemoglobin (1.5 - 5.0 %) 0.8 L O2 Concentration % 30% Temperature (97.0 - 100.0 FARH) 97.6 Respiration Rate (BPM) 24 O2 Delivery Method VISION-FFM Vent Mode ST Expiratory Pressure (CM H2O P) 6 Inspiratory Pressure (CM H2O P) 20 Chemistry Sodium (137 - 145 mmol/L) 136 L Potassium (3.5 - 5.1 mmol/L) 5.5 H Chloride (98 - 107 mmol/L) 95 L Carbon Dioxide (22 - 30 mmol/L) 22 Anion Gap (5 - 16) 19 H BUN (9 - 20 mg/dL) 66 H Creatinine (0.7 - 1.2 mg/dL) 5.6 *H Estimated GFR (>60 ml/min) 10 L Glucose (65 - 99 mg/dL) 197 H Calcium (8.4 - 10.2 mg/dL) 7.5 L Phosphorus (2.5 - 4.5 mg/dL) 6.4 H Magnesium (1.6 - 2.3 mg/dL) 2.0 Total Bilirubin (0.2 - 1.3 mg/dL) 0.5 AST (17 - 59 U/L) 18 ALT (21 - 72 U/L) 24 Albumin (3.5 - 5.0 g/dL) 3.8 Hematology CBC w Diff NO MAN DIFF REQ WBC (4.8 - 10.8 /CUMM) 9.1 RBC (4.70 - 6.10 /CUMM) 3.86 L Hgb (14.0 - 18.0 G/DL) 11.6 L Hct (42 - 52 %) 35.9 L MCV (80.0 - 94.0 FL) 93.1 MCH (27.0 - 31.0 PG) 30.1 MCHC (33.0 - 37.0 G/DL) 32.4 L RDW (11.5 - 14.5 %) 15.4 H Plt Count (130 - 400 /CUMM) 165 MPV (7.4 - 10.4 FL) 10.5 H Gran % (42.2 - 75.2 %) 94.0 H Lymphocytes % (20.5 - 51.1 %) 3.1 L Monocytes % (1.7 - 9.3 %) 2.9 Eosinophils % (0 - 5 %) 0 Basophils % (0.0 - 2.0 %) 0 Absolute Granulocytes (1.4 - 6.5 /CUMM) 8.5 H Absolute Lymphocytes (1.2 - 3.4 /CUMM) 0.3 L Absolute Monocytes (0.10 - 0.60 /CUMM) 0.3 Absolute Eosinophils (0.0 - 0.7 /CUMM) 0 Absolute Basophils (0.0 - 0.2 /CUMM) 0 Miscellaneous Phlebotomy Draw Site LEFT RADIAL 05/28 04 0600 0345 Blood Gas pH (7.35 - 7.45 PH) 7.23 *L pCO2 (35 - 45 TORR) 47 H pO2 (80 - 100 TORR) 100 HCO3 (21 - 28 MEQ/L) 19 L ABG O2 Sat (Measured) (>96.0 %) 95.0 L P-50 (Temp Corrected) Y Carboxyhemoglobin (1.5 - 5.0 %) 1.4 L O2 Concentration % 30% Temperature (97.0 - 100.0 FARH) 97.9 Respiration Rate (BPM) 24 O2 Delivery Method VISION-FFM Vent Mode ST Expiratory Pressure (CM H2O P) 6 Inspiratory Pressure (CM H2O P) 20 Chemistry Sodium (137 - 145 mmol/L) 137 Potassium (3.5 - 5.1 mmol/L) 6.2 *H Chloride (98 - 107 mmol/L) 99 Carbon Dioxide (22 - 30 mmol/L) 19 L Anion Gap (5 - 16) 19 H BUN (9 - 20 mg/dL) 56 H Creatinine (0.7 - 1.2 mg/dL) 5.8 *H Estimated GFR (>60 ml/min) 9 L BUN/Creatinine Ratio (7 - 25 %) 9.7 Calcium (8.4 - 10.2 mg/dL) 8.5 Phosphorus (2.5 - 4.5 mg/dL) 6.6 H Magnesium (1.6 - 2.3 mg/dL) 1.9 Total Bilirubin (0.2 - 1.3 mg/dL) 0.6 Direct Bilirubin (< 0.4 mg/dL) 0.6 H AST (17 - 59 U/L) 17 ALT (21 - 72 U/L) 31 Alkaline Phosphatase (< 127 U/L) 211 H Troponin I (<0.11 ng/ml) 0.02 Total Protein (6.3 - 8.2 g/dL) 7.5 Albumin (3.5 - 5.0 g/dL) 3.8 Hematology CBC w Diff MAN DIFF ORDERED WBC (4.8 - 10.8 /CUMM) 3.9 L RBC (4.70 - 6.10 /CUMM) 3.65 L Hgb (14.0 - 18.0 G/DL) 11.1 L Hct (42 - 52 %) 34.1 L MCV (80.0 - 94.0 FL) 93.4 MCH (27.0 - 31.0 PG) 30.6 MCHC (33.0 - 37.0 G/DL) 32.7 L RDW (11.5 - 14.5 %) 15.3 H Plt Count (130 - 400 /CUMM) 134 MPV (7.4 - 10.4 FL) 10.2 Gran % (42.2 - 75.2 %) 92.1 H Lymphocytes % (20.5 - 51.1 %) 6.1 L Monocytes % (1.7 - 9.3 %) 1.8 Eosinophils % (0 - 5 %) 0 Basophils % (0.0 - 2.0 %) 0 Absolute Granulocytes (1.4 - 6.5 /CUMM) 3.6 Segmented Neutrophils (42.2 - 75.2 %) 95 H Band Neutrophils (0.0 - 5.0 %) 1 Absolute Lymphocytes (1.2 - 3.4 /CUMM) 0.2 L Lymphocytes (20.5 - 51.1 %) 4 L Absolute Monocytes (0.10 - 0.60 /CUMM) 0.1 Absolute Eosinophils (0.0 - 0.7 /CUMM) 0 Absolute Basophils (0.0 - 0.2 /CUMM) 0 Platelet Estimate (ADEQUATE) ADEQUATE Polychromasia 1+ Hypochromic-Microcytic 1+ Poikilocytosis 1+ Ovalocytes 1+ Elliptocytes FEW Miscellaneous Phlebotomy Draw Site LEFT RADIAL Other Body Source Fld Total RBCs Counted (%) 100 04/05 04 1335 1116 Blood Gas pH (7.35 - 7.45 PH) 7.27 *L pCO2 (35 - 45 TORR) 48 H pO2 (80 - 100 TORR) 91 HCO3 (21 - 28 MEQ/L) 22 ABG O2 Sat (Measured) (>96.0 %) 95.0 L P-50 (Temp Corrected) Y Carboxyhemoglobin (1.5 - 5.0 %) 1.5 O2 Concentration % 30% Temperature (97.0 - 100.0 FARH) 96.8 L Respiration Rate (BPM) 22 O2 Delivery Method BIPAP Vent Mode ST Expiratory Pressure (CM H2O P) 6 Inspiratory Pressure (CM H2O P) 18 Chemistry Sodium (137 - 145 mmol/L) 142 Potassium (3.5 - 5.1 mmol/L) 4.6 Chloride (98 - 107 mmol/L) 99 Carbon Dioxide (22 - 30 mmol/L) 24 Anion Gap (5 - 16) 19 H BUN (9 - 20 mg/dL) 34 H Creatinine (0.7 - 1.2 mg/dL) 4.1 H Estimated GFR (>60 ml/min) 14 L BUN/Creatinine Ratio (7 - 25 %) 8.3 Glucose (65 - 99 mg/dL) 186 H Serum Osmolality (285 - 295 MOSM/KG) 310 H Lactic Acid (0.7 - 2.1 mmol/L) 0.9 Calcium (8.4 - 10.2 mg/dL) 9.3 Phosphorus (2.5 - 4.5 mg/dL) 3.9 Magnesium (1.6 - 2.3 mg/dL) 1.9 Total Bilirubin (0.2 - 1.3 mg/dL) 0.6 AST (17 - 59 U/L) 23 ALT (21 - 72 U/L) 27 Alkaline Phosphatase (< 127 U/L) 235 H Troponin I (<0.11 ng/ml) 0.03 Total Protein (6.3 - 8.2 g/dL) 8.3 H Albumin (3.5 - 5.0 g/dL) 4.2 Globulin (1.9 - 4.2 gm/dL) 4.1 Albumin/Globulin Ratio (1.1 - 2.2 %) 1.0 L Hematology CBC w Diff NO MAN DIFF REQ WBC (4.8 - 10.8 /CUMM) 6.4 RBC (4.70 - 6.10 /CUMM) 3.89 L Hgb (14.0 - 18.0 G/DL) 12.0 L Hct (42 - 52 %) 36.3 L MCV (80.0 - 94.0 FL) 93.5 MCH (27.0 - 31.0 PG) 30.8 MCHC (33.0 - 37.0 G/DL) 32.9 L RDW (11.5 - 14.5 %) 14.8 H Plt Count (130 - 400 /CUMM) 143 MPV (7.4 - 10.4 FL) 9.5 Gran % (42.2 - 75.2 %) 79.3 H Lymphocytes % (20.5 - 51.1 %) 7.6 L Monocytes % (1.7 - 9.3 %) 10.5 H Eosinophils % (0 - 5 %) 2.3 Basophils % (0.0 - 2.0 %) 0.3 Absolute Granulocytes (1.4 - 6.5 /CUMM) 5.1 Absolute Lymphocytes (1.2 - 3.4 /CUMM) 0.5 L Absolute Monocytes (0.10 - 0.60 /CUMM) 0.7 H Absolute Eosinophils (0.0 - 0.7 /CUMM) 0.1 Absolute Basophils (0.0 - 0.2 /CUMM) 0 Miscellaneous Phlebotomy Draw Site LEFT RADIAL Toxicology Acetone Level (NEGATIVE) NEGATIVE 05/27 1045 Blood Gas pH (7.35 - 7.45 PH) 7.26 *L pCO2 (35 - 45 TORR) 49 H pO2 (80 - 100 TORR) 120 H HCO3 (21 - 28 MEQ/L) 22 ABG O2 Sat (Measured) (>96.0 %) 97.0 Carboxyhemoglobin (1.5 - 5.0 %) 0.7 L O2 Concentration % 7L O2 Delivery Method NEB TX Miscellaneous Phlebotomy Draw Site RIGHT RADIAL Microbiology Date/Time Procedure - Status Source Growth 05/29 1000 Respiratory Culture - ORD LOWER RESP 05/29 1000 Gram Stain - ORD LOWER RESP 05/28 0840 Influenza Virus A & B Rapid Smear - COMP NASOPHARYN 05/27 2138 Respiratory Culture - CAN LOWER RESP Cancelled: NO SAMPLE COLLECTED 05/27 2138 Gram Stain - CAN LOWER RESP Cancelled: NO SAMPLE COLLECTED 05/27 1540 Surveillance Culture - COMP UPPER RESP 05/27 1540 Surveillance Culture - COMP GI 05/27 1232 Blood Culture - RES BLOOD 05/27 1223 Blood Culture - RES BLOOD Impression/Plan Impression/Plan Impression/Plan: General Appearance: well developed/nourished, awake, mild distress, on BIPAP Head: atraumatic, normal appearance Respiratory: rhonchi, wheezing, respiratory distress (when BIPAP is taken off) Cardiovascular: regular rate/rhythm Gastrointestinal: normal bowel sounds, soft, non-tender, distention Extremities: no edema 86-year-old gentleman with dialysis-dependent end-stage renal disease and a background of COPD now comes in with worsening shortness of breath of at least several days duration Issues Acute and chronic hypoxemic and hypercarbic respiratory failure in a gentleman with obstructive lung disease and on hemodialysis, was on oxygen at home. And this respiratory failure appears to be related to multiple issues including acute exacerbation of his obstructive lung disease, respiratory and metabolic acidosis, significant renal failure with end-stage renal disease on dialysis with difficulty lately with ultrafiltration due to his hypotension. He also has other issues since includes anemia, previous hypertension, significant diabetes, diastolic heart. Issues Acute on chronic hypoxemic and hypercarbic respiratory failure due to combination of issues including exacerbation of his obstructive lung disease, central apnea with obesity hypoventilation syndrome-like picture, worsening metabolic acidosis due to significant renal failure End-stage renal disease with on and off hypotension with inability to get adequate dialysis On and off delirium related to his hypercarbia and metabolic encephalopathy Diabetes and persistent hyperkalemia which is stable Previous S maltophilia infection RECOMMENDATION Continue dialysis Continue BiPAP on and off as needed Continue intravenous steroids and reduce the dose to 60 mg daily Changes antibiotic to levofloxacin and discontinue other antibiotics. Patient did have S maltophilia before and he seems to have ongoing thick secretions Patient not a candidate for Bactrim due to his persistent hyperkalemia
[2017-05-29 12:00] VITALS: BP 100/50
--- NOTE | 2017-05-29 14:05 | PN- Nephrology ---
Assessment/Plan Nephrology Assessment: 1. End-stage renal disease 2. Dyspnea. Likely due to COPD exacerbation Suggestion: 1. Hemodialysis today. We'll attempt to reach his dry weight of 74 kg. 2. Hemodialysis will be on Wednesday. Subjective Subjective: Patient for dialysis this afternoon. He appears comfortable. Objective Vital Signs and I&Os Vital Signs Date Time Temp Pulse Resp B/P B/P Pulse O2 O2 Flow FiO2 Mean Ox Delivery Rate 05/29 1000 68 120/60 05/29 1000 68 120/60 05/29 0921 20 97 Nasal 3.0L Cannula 05/29 0810 98 BIPAP 30% 05/29 0810 68 98 05/29 0800 97.8 68 22 120/60 96 BIPAP 30% 05/29 0800 96 BIPAP 30% 05/29 0645 63 97 05/29 0400 97 BIPAP 30% 05/29 0356 65 98 05/29 0325 63 99 05/29 0039 68 97 04/ 0000 98 BIPAP 30% 05/29 0000 97.4 63 24 118/50 98 BIPAP 30% 05/28 2135 64 99 05/28 2000 96 BIPAP 30% 05/28 1908 80 97 05/28 1844 74 96 04/ 1716 78 94 / 1650 96 Nasal 3.0L Cannula 05/28 1600 97 Nasal 3.0L Cannula 05/28 1600 98.0 74 22 130/60 97 Nasal 3.0L Cannula Intake & Output 05/29 1600 / 0400 04/ 1600 04/ 0400 04/ 1600 / 0400 Intake Total 0 480 1050 460 Output Total 1400 0 0 Balance 0 -920 1050 460 Intake, IV 0 0 340 240 Intake, Oral 0 480 710 220 Number 1 0 1 0 Bowel Movements Output, 1400 Dialysate Output, Urine 0 0 0 Patient 155 lb 158 lb 158 lb 170 lb Weight Weight Bed scale Bed scale Reported by Patient Measurement Method Physical Exam: General: Well-developed elderly male in no acute distress Skin: No rash or jaundice HEENT: Conjunctivae pale, sclerae anicteric, mucous membranes dry Neck: Without masses or thyromegaly, no supraclavicular or cervical adenopathy Chest: Diffuse rhonchi, wheezes and rales. Sounds very tight Heart: Regular rate and rhythm without S3 or rub; heart sounds distant Abdomen: Soft and nontender without palpable masses or organomegaly Extremities: Without cyanosis or edema Neuro: Awake, no focal findings, Current Medications: Current Medications Sig/Rina Start time Last Medication Dose Route Stop Time Status Admin Albuterol Sulfate 3 ML EVERY 4 HRS/AWAKE 05/27 2000 AC 05/29 INH 1216 Albuterol Sulfate 2 PUF Q4-6 PRN PRN 05/27 1545 AC INH Amlodipine Besylate 5 MG DAILY 05/27 1830 AC 05/29 PO 1000 Azithromycin 500 MG DAILY 05/28 1000 DC 05/29 Dextrose/Water 250 ML IV 0905 Budesonide/ 2 PUF BID 05/27 2200 AC 05/29 Formoterol Fumarate INH 0905 Ceftriaxone Sodium 1,000 MG DAILY 05/28 1000 DC 05/28 IV 1636 Furosemide 80 MG DAILY 05/28 1000 AC 05/29 PO 0844 Heparin Sodium 5,000 UNIT Q8 05/27 1400 AC 05/29 (Porcine) SC 1342 Insulin Aspart 0 TIDAC 05/27 1830 AC 05/29 SC 1158 Insulin Detemir 4 UNITS DAILY 05/28 1000 AC 05/29 SC 0845 Levofloxacin 500 MG Q48H 05/31 1000 AC PO Levofloxacin 750 MG ONCE ONE 05/29 1130 DC 05/29 PO 05/29 1131 1343 Lisinopril 5 MG DAILY 05/28 1000 AC 05/28 PO 0829 Methylprednisolone 40 MG DAILY 05/30 1000 AC IV Methylprednisolone 40 MG Q8H 05/27 2100 DC 05/29 IV 0533 Midodrine 5 MG SEE ADMIN CRITERIA.. 05/27 1545 AC PO Pantoprazole Sodium 40 MG DAILY 05/28 1000 AC 05/29 IV 0846 Results Pertinent Lab Results: Laboratory Tests 05/29 05/29 0400 0330 Blood Gas pH (7.35 - 7.45 PH) 7.26 *L pCO2 (35 - 45 TORR) 51 H pO2 (80 - 100 TORR) 96 HCO3 (21 - 28 MEQ/L) 23 ABG O2 Sat (Measured) (>96.0 %) 95.0 L P-50 (Temp Corrected) Y Carboxyhemoglobin (1.5 - 5.0 %) 0.8 L O2 Concentration % 30% Temperature (97.0 - 100.0 FARH) 97.6 Respiration Rate (BPM) 24 O2 Delivery Method VISION-FFM Vent Mode ST Expiratory Pressure (CM H2O P) 6 Inspiratory Pressure (CM H2O P) 20 Chemistry Sodium (137 - 145 mmol/L) 136 L Potassium (3.5 - 5.1 mmol/L) 5.5 H Chloride (98 - 107 mmol/L) 95 L Carbon Dioxide (22 - 30 mmol/L) 22 Anion Gap (5 - 16) 19 H BUN (9 - 20 mg/dL) 66 H Creatinine (0.7 - 1.2 mg/dL) 5.6 *H Estimated GFR (>60 ml/min) 10 L Glucose (65 - 99 mg/dL) 197 H Calcium (8.4 - 10.2 mg/dL) 7.5 L Phosphorus (2.5 - 4.5 mg/dL) 6.4 H Magnesium (1.6 - 2.3 mg/dL) 2.0 Total Bilirubin (0.2 - 1.3 mg/dL) 0.5 AST (17 - 59 U/L) 18 ALT (21 - 72 U/L) 24 Albumin (3.5 - 5.0 g/dL) 3.8 Hematology CBC w Diff NO MAN DIFF REQ WBC (4.8 - 10.8 /CUMM) 9.1 RBC (4.70 - 6.10 /CUMM) 3.86 L Hgb (14.0 - 18.0 G/DL) 11.6 L Hct (42 - 52 %) 35.9 L MCV (80.0 - 94.0 FL) 93.1 MCH (27.0 - 31.0 PG) 30.1 MCHC (33.0 - 37.0 G/DL) 32.4 L RDW (11.5 - 14.5 %) 15.4 H Plt Count (130 - 400 /CUMM) 165 MPV (7.4 - 10.4 FL) 10.5 H Gran % (42.2 - 75.2 %) 94.0 H Lymphocytes % (20.5 - 51.1 %) 3.1 L Monocytes % (1.7 - 9.3 %) 2.9 Eosinophils % (0 - 5 %) 0 Basophils % (0.0 - 2.0 %) 0 Absolute Granulocytes (1.4 - 6.5 /CUMM) 8.5 H Absolute Lymphocytes (1.2 - 3.4 /CUMM) 0.3 L Absolute Monocytes (0.10 - 0.60 /CUMM) 0.3 Absolute Eosinophils (0.0 - 0.7 /CUMM) 0 Absolute Basophils (0.0 - 0.2 /CUMM) 0 Miscellaneous Phlebotomy Draw Site LEFT RADIAL 05/28 05/28 0600 0345 Blood Gas pH (7.35 - 7.45 PH) 7.23 *L pCO2 (35 - 45 TORR) 47 H pO2 (80 - 100 TORR) 100 HCO3 (21 - 28 MEQ/L) 19 L ABG O2 Sat (Measured) (>96.0 %) 95.0 L P-50 (Temp Corrected) Y Carboxyhemoglobin (1.5 - 5.0 %) 1.4 L O2 Concentration % 30% Temperature (97.0 - 100.0 FARH) 97.9 Respiration Rate (BPM) 24 O2 Delivery Method VISION-FFM Vent Mode ST Expiratory Pressure (CM H2O P) 6 Inspiratory Pressure (CM H2O P) 20 Chemistry Sodium (137 - 145 mmol/L) 137 Potassium (3.5 - 5.1 mmol/L) 6.2 *H Chloride (98 - 107 mmol/L) 99 Carbon Dioxide (22 - 30 mmol/L) 19 L Anion Gap (5 - 16) 19 H BUN (9 - 20 mg/dL) 56 H Creatinine (0.7 - 1.2 mg/dL) 5.8 *H Estimated GFR (>60 ml/min) 9 L BUN/Creatinine Ratio (7 - 25 %) 9.7 Calcium (8.4 - 10.2 mg/dL) 8.5 Phosphorus (2.5 - 4.5 mg/dL) 6.6 H Magnesium (1.6 - 2.3 mg/dL) 1.9 Total Bilirubin (0.2 - 1.3 mg/dL) 0.6 Direct Bilirubin (< 0.4 mg/dL) 0.6 H AST (17 - 59 U/L) 17 ALT (21 - 72 U/L) 31 Alkaline Phosphatase (< 127 U/L) 211 H Troponin I (<0.11 ng/ml) 0.02 Total Protein (6.3 - 8.2 g/dL) 7.5 Albumin (3.5 - 5.0 g/dL) 3.8 Hematology CBC w Diff MAN DIFF ORDERED WBC (4.8 - 10.8 /CUMM) 3.9 L RBC (4.70 - 6.10 /CUMM) 3.65 L Hgb (14.0 - 18.0 G/DL) 11.1 L Hct (42 - 52 %) 34.1 L MCV (80.0 - 94.0 FL) 93.4 MCH (27.0 - 31.0 PG) 30.6 MCHC (33.0 - 37.0 G/DL) 32.7 L RDW (11.5 - 14.5 %) 15.3 H Plt Count (130 - 400 /CUMM) 134 MPV (7.4 - 10.4 FL) 10.2 Gran % (42.2 - 75.2 %) 92.1 H Lymphocytes % (20.5 - 51.1 %) 6.1 L Monocytes % (1.7 - 9.3 %) 1.8 Eosinophils % (0 - 5 %) 0 Basophils % (0.0 - 2.0 %) 0 Absolute Granulocytes (1.4 - 6.5 /CUMM) 3.6 Segmented Neutrophils (42.2 - 75.2 %) 95 H Band Neutrophils (0.0 - 5.0 %) 1 Absolute Lymphocytes (1.2 - 3.4 /CUMM) 0.2 L Lymphocytes (20.5 - 51.1 %) 4 L Absolute Monocytes (0.10 - 0.60 /CUMM) 0.1 Absolute Eosinophils (0.0 - 0.7 /CUMM) 0 Absolute Basophils (0.0 - 0.2 /CUMM) 0 Platelet Estimate (ADEQUATE) ADEQUATE Polychromasia 1+ Hypochromic-Microcytic 1+ Poikilocytosis 1+ Ovalocytes 1+ Elliptocytes FEW Miscellaneous Phlebotomy Draw Site LEFT RADIAL Other Body Source Fld Total RBCs Counted (%) 100 05 05/27 1335 1116 Blood Gas pH (7.35 - 7.45 PH) 7.27 *L pCO2 (35 - 45 TORR) 48 H pO2 (80 - 100 TORR) 91 HCO3 (21 - 28 MEQ/L) 22 ABG O2 Sat (Measured) (>96.0 %) 95.0 L P-50 (Temp Corrected) Y Carboxyhemoglobin (1.5 - 5.0 %) 1.5 O2 Concentration % 30% Temperature (97.0 - 100.0 FARH) 96.8 L Respiration Rate (BPM) 22 O2 Delivery Method BIPAP Vent Mode ST Expiratory Pressure (CM H2O P) 6 Inspiratory Pressure (CM H2O P) 18 Chemistry Sodium (137 - 145 mmol/L) 142 Potassium (3.5 - 5.1 mmol/L) 4.6 Chloride (98 - 107 mmol/L) 99 Carbon Dioxide (22 - 30 mmol/L) 24 Anion Gap (5 - 16) 19 H BUN (9 - 20 mg/dL) 34 H Creatinine (0.7 - 1.2 mg/dL) 4.1 H Estimated GFR (>60 ml/min) 14 L BUN/Creatinine Ratio (7 - 25 %) 8.3 Glucose (65 - 99 mg/dL) 186 H Serum Osmolality (285 - 295 MOSM/KG) 310 H Lactic Acid (0.7 - 2.1 mmol/L) 0.9 Calcium (8.4 - 10.2 mg/dL) 9.3 Phosphorus (2.5 - 4.5 mg/dL) 3.9 Magnesium (1.6 - 2.3 mg/dL) 1.9 Total Bilirubin (0.2 - 1.3 mg/dL) 0.6 AST (17 - 59 U/L) 23 ALT (21 - 72 U/L) 27 Alkaline Phosphatase (< 127 U/L) 235 H Troponin I (<0.11 ng/ml) 0.03 Total Protein (6.3 - 8.2 g/dL) 8.3 H Albumin (3.5 - 5.0 g/dL) 4.2 Globulin (1.9 - 4.2 gm/dL) 4.1 Albumin/Globulin Ratio (1.1 - 2.2 %) 1.0 L Hematology CBC w Diff NO MAN DIFF REQ WBC (4.8 - 10.8 /CUMM) 6.4 RBC (4.70 - 6.10 /CUMM) 3.89 L Hgb (14.0 - 18.0 G/DL) 12.0 L Hct (42 - 52 %) 36.3 L MCV (80.0 - 94.0 FL) 93.5 MCH (27.0 - 31.0 PG) 30.8 MCHC (33.0 - 37.0 G/DL) 32.9 L RDW (11.5 - 14.5 %) 14.8 H Plt Count (130 - 400 /CUMM) 143 MPV (7.4 - 10.4 FL) 9.5 Gran % (42.2 - 75.2 %) 79.3 H Lymphocytes % (20.5 - 51.1 %) 7.6 L Monocytes % (1.7 - 9.3 %) 10.5 H Eosinophils % (0 - 5 %) 2.3 Basophils % (0.0 - 2.0 %) 0.3 Absolute Granulocytes (1.4 - 6.5 /CUMM) 5.1 Absolute Lymphocytes (1.2 - 3.4 /CUMM) 0.5 L Absolute Monocytes (0.10 - 0.60 /CUMM) 0.7 H Absolute Eosinophils (0.0 - 0.7 /CUMM) 0.1 Absolute Basophils (0.0 - 0.2 /CUMM) 0 Miscellaneous Phlebotomy Draw Site LEFT RADIAL Toxicology Acetone Level (NEGATIVE) NEGATIVE 05/27 1045 Blood Gas pH (7.35 - 7.45 PH) 7.26 *L pCO2 (35 - 45 TORR) 49 H pO2 (80 - 100 TORR) 120 H HCO3 (21 - 28 MEQ/L) 22 ABG O2 Sat (Measured) (>96.0 %) 97.0 Carboxyhemoglobin (1.5 - 5.0 %) 0.7 L O2 Concentration % 7L O2 Delivery Method NEB TX Miscellaneous Phlebotomy Draw Site RIGHT RADIAL
--- NOTE | 2017-05-29 14:18 | Event Note ---
Event Note Event Note: I called the patient's listed person to contact/his son Mauricio Bond at but apparently his number is not in service so could not reach [place] leave any voicemail message. After that I called patient's next of kin Lana Thibodeaux at [phone] who apparently lives in [place] according to the EMR, and left a voicemail to call us back at the ICU number. 1412 hrs. The calls were made by me out of growing concerns that the patient has been refusing hospital awaiting food from home, and nobody has visited him the whole day today, my concerns pain if he is confused that someone would come to visit him at all. Also, patient tried to get out of bed once today and seemed to be confused about his ongoing treatment, and wanted to go out to home. He settled down within a minute of explaining/reorienting him in his [place] language by me, so language was not a barrier, but his confusion was concerning. We'll keep a close eye on his mental status, specific given his hypercarbic respiratory failure. This event occured after he had been off BiPAP for two hrs at least ( was on O2 via [place] for the breaks) and had just begun to keep it on. Lana, patient's daughter called back. She was updated about the condition of the patient and also asked if he seems confused to her. She mentioned that he has at one time asked her to come pick him up because he wanted to go home, otherwise not. She also gave me patient's son Mauricio's cell number [phone] and mentioned that the number in the system is a landline and is no longer in use. We will continue to treat him with BiPAP and other medications as listed in progress note. Mauricio will probably visit him later today, with food. Kathy, patient's bstm[facility]wes also called while I was speaking to Lana and was updated by the nursing staff.
[2017-05-29 16:07] VITALS: BP 88/46
[2017-05-30] VITALS: BP 145/68
[2017-05-30 04:50] LABS: ABSOLUTE BASOPHIL COUNT 0 /CUMM (0.0-0.2); ABSOLUTE EOSINOPHIL COUNT 0 /CUMM (0.0-0.7); ABSOLUTE GRANULOCYTE CT 8.1 /CUMM (1.4-6.5); ABSOLUTE LYMPH COUNT 0.3 /CUMM (1.2-3.4); ABSOLUTE MONOCYTE COUNT 0.3 /CUMM (0.10-0.60); BASOPHIL % 0 % (0.0-2.0); EOSINOPHIL % 0 % (0-5); GRANULOCYTE % 93.6 % (42.2-75.2); HEMATOCRIT 37.4 % (42-52); MEAN CORPUSCULAR HGB 30.1 PG (27.0-31.0); MEAN CORPUSCULAR HGB CONC 32.1 G/DL (33.0-37.0); MEAN CORPUSCULAR VOLUME 93.8 FL (80.0-94.0); MEAN PLATELET VOLUME 10.6 FL (7.4-10.4); PLATELET COUNT 153 /CUMM (130-400); RBC DISTRIBUTION WIDTH 15.1 % (11.5-14.5); RED BLOOD CELL CT 3.99 /CUMM (4.70-6.10)
[2017-05-30 05:32] LABS: WHITE BLOOD CELL COUNT 8.6 /CUMM (4.8-10.8)
[2017-05-30 08:00] VITALS: BP 126/52
--- NOTE | 2017-05-30 08:41 | PN- Resident CRCU ---
Subjective HPI/CRCU Issues: -Acute on chronic hypoxic and hypercarbic respiratory failure due to COPD/asthma exacerbation requiring Bipap. -Agitation and delirium that could be due to hypercarbia and metabolic encephalopathy. -ESRD on hemodialysis with on and off hypotension. -Diabetes and persistent hyperkalemia which is improve with hemodialysis -Microcytic anemia related to chronic disease and renal failure. -Hx. of hypertension. 24 Hour Events: Patient was seen and examined today. he is awake, Ox2. 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 currently he is on 35% O2 of high flow with O2 sat > 95%, he still in using his abdominal for breathing with mild to moderate wheezing. last HD was yesterday and they took 1 L off as his SBP was > 110. he is +300cc of fluid today and - 1L since admission. was started on Levoflox yesterday as his was on Azithro and Rocephin for 2 days . Accu-check [id number]. Levoflox q48 hrs due to ESRD. No valle cath No central line Objective Vital Signs & I&O Last 8 Hrs of Vitals and I&O: Vital Signs Date Time Temp Pulse Resp B/P B/P Pulse O2 O2 Flow FiO2 Mean Ox Delivery Rate 05/31 799 96 Nasal 40% Cannula 05/30 0745 66 95 08 0604 73 95 05/30 0404 67 95 05/30 0400 95 BIPAP 30% 05/30 0103 75 95 05/30 0000 97.7 74 24 145/68 96 BIPAP 30% 05/30 0000 96 BIPAP 30% 05/29 2029 77 95 05/29 2000 99 BIPAP 30% 05/29 1635 96 BIPAP 30% 05/29 1626 68 95 05/29 1607 97.9 63 28 88/46 97 BIPAP 30% 05/29 1600 97 BIPAP 30% 05/29 1450 66 99 05/29 1200 100 Nasal 3.0L Cannula 05/29 1200 97.8 76 20 100/50 100 Nasal 3.0L Cannula 05/29 1000 68 120/60 04/07 1000 68 120/60 07 0921 20 97 Nasal 3.0L Cannula Intake & Output 05/30 1600 05/30 0800 05/30 0000 Intake Total 0 600 Output Total 0 1000 Balance 0 -400 Intake, IV 0 Intake, Oral 0 600 Number 0 1 Bowel Movements Output, 1000 Dialysate Output, Urine 0 0 Exam General Appearance: awake, lethargic, mild distress, on high flow. Head: atraumatic Respiratory: chest non-tender, decreased breath sounds, rhonchi, wheezing, on high flow O2 Cardiovascular: regular rate/rhythm Gastrointestinal: normal bowel sounds, soft, non-tender, using for breathing Extremities: no edema Current Medications: Current Medications Sig/Rina Start time Last Medication Dose Route Stop Time Status Admin Albuterol Sulfate 3 ML EVERY 4 HRS/AWAKE 05/27 2000 AC 05/30 INH 0750 Albuterol Sulfate 2 PUF Q4-6 PRN PRN 05/27 1545 AC INH Amlodipine Besylate 5 MG DAILY 05/27 1830 AC 05/29 PO 1000 Azithromycin 500 MG DAILY 05/28 1000 DC 05/29 Dextrose/Water 250 ML IV 0905 Budesonide/ 2 PUF BID 05/27 2200 AC 05/29 Formoterol Fumarate INH 2118 Ceftriaxone Sodium 1,000 MG DAILY 05/28 1000 DC 05/28 IV 1636 Epoetin Mohamud 1,000 UNIT TuThSa PRN 05/29 1645 AC IV Furosemide 80 MG DAILY 05/28 1000 AC 05/29 PO 0844 Heparin Sodium 5,000 UNIT Q8 05/27 1400 AC 05/30 (Porcine) SC 0559 Insulin Aspart 0 TIDAC 05/27 1830 AC 05/29 SC 1158 Insulin Detemir 4 UNITS DAILY 05/28 1000 AC 05/29 SC 0845 Levofloxacin 500 MG Q48H 05/31 1000 AC PO Levofloxacin 750 MG ONCE ONE 05/29 1130 DC 05/29 PO 05/29 1131 1343 Lisinopril 5 MG DAILY 05/28 1000 AC 05/28 PO 0829 Lorazepam 0.5 MG Q4P PRN 05/30 0300 AC 05/30 IV 0257 Methylprednisolone 40 MG DAILY 05/30 1000 AC IV Methylprednisolone 40 MG ONCE ONE 05/29 2230 DC 05/29 IV 05/29 2231 2237 Methylprednisolone 40 MG Q8H 05/27 2100 DC 05/29 IV 0533 Midodrine 5 MG SEE ADMIN CRITERIA.. 05/27 1545 AC 05/29 PO 1613 Pantoprazole Sodium 40 MG DAILY 04/06 1000 AC 05/29 IV 0846 Results Results: Laboratory Tests 05/30/17 0415: Anion Gap 16, Estimated GFR 16 L, Glucose 187 H, Calcium 7.8 L, Phosphorus 4.8 H, Magnesium 2.0, Total Bilirubin 0.5, AST 20, ALT 30, Albumin 3.6, CBC w Diff NO MAN DIFF REQ, RBC 3.99 L, MCV 93.8, MCH 30.1, MCHC 32.1 L, RDW 15.1 H , MPV 10.6 H, Gran % 93.6 H, Lymphocytes % 3.4 L, Monocytes % 3.0, Eosinophils % 0, Basophils % 0, Absolute Granulocytes 8.1 H, Absolute Lymphocytes 0.3 L, Absolute Monocytes 0.3, Absolute Eosinophils 0, Absolute Basophils 0 05/29/17 0400: Anion Gap 19 H, Estimated GFR 10 L, Glucose 197 H, Calcium 7.5 L, Phosphorus 6.4 H, Magnesium 2.0, Total Bilirubin 0.5, AST 18, ALT 24, Albumin 3.8, CBC w Diff NO MAN DIFF REQ, RBC 3.86 L, MCV 93.1, MCH 30.1, MCHC 32.4 L, RDW 15.4 H , MPV 10.5 H, Gran % 94.0 H, Lymphocytes % 3.1 L, Monocytes % 2.9, Eosinophils % 0, Basophils % 0, Absolute Granulocytes 8.5 H, Absolute Lymphocytes 0.3 L, Absolute Monocytes 0.3, Absolute Eosinophils 0, Absolute Basophils 0 05/29/17 0330: pH 7.26 *L, pCO2 51 H, pO2 96, HCO3 23, ABG O2 Sat (Measured) 95.0 L, P-50 ( Temp Corrected) Y, Carboxyhemoglobin 0.8 L, O2 Concentration % 30%, Temperature 97.6, Respiration Rate 24, O2 Delivery Method VISION-FFM, Vent Mode ST, Expiratory Pressure 6, Inspiratory Pressure 20, Phlebotomy Draw Site LEFT RADIAL Impression/Plan Impression/Problem List Impression: Patient is an 86-year-old male with past medical history of insulin-dependent diabetes mellitus, end-stage renal disease on dialysis every Wednesday, , Wednesday with an AV fistula in his right arm, COPD on 2 L oxygen at home, asthma , hypertension who presented this admission with worsening dyspnea. Problem list: -Acute on chronic hypoxic and hypercarbic respiratory failure due to COPD/asthma exacerbation requiring Bipap. -Agitation and delirium that could be due to hypercarbia and metabolic encephalopathy. -ESRD on hemodialysis with on and off hypotension. -Diabetes and persistent hyperkalemia which is improve with hemodialysis -Microcytic anemia related to chronic disease and renal failure. -Hx. of hypertension. Plan: -Cont high flow O2 and decrease the O2 as tolerated -Cont Bipap on and off as needed. -cont current IV Solu-Medrol 40 mg BID for today and reduce to 60 mg daily tomorrow. -Cont the levoflox Abx -Avoid any additional delirium triggered -Encourage increase oral intake -Cont Accu-check, Levemir 4 units daily, and NovoLog sliding scale -His K 4.9, Cr 3.6/BUN 44. cont to monitor. -be cautious with his blood pressure medication keep SBP>90 -p.t will go the hemodialysis on Wednesday Diet: Renal dialysis diet DVT ppx: SQ Heparin, ALPS Code status: Full code Problem List: 1. Hyperkalemia, diminished renal excretion 2. ESRD on dialysis 3. Acute on chronic respiratory failure with hypoxia and hypercapnia Pain Ratin Tomorrow's Labs & Rationales: cbc icu Plan DVT/Prophylaxis: mechanical, pharmacological
--- NOTE | 2017-05-30 11:40 | PN- Pulmonary ---
Subjective HPI/Critical Care Issues: Patient was seen and examined today. he is awake, Ox2. 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 currently he is on 35% O2 of high flow with O2 sat > 95%, he still in using his abdominal for breathing with mild to moderate wheezing. last HD was yesterday and they took 1 L off as his SBP was > 110. he is +300cc of fluid today and - 1L since admission. was started on Levoflox yesterday as his was on Azithro and Rocephin for 2 days . Objective Current Medications: Current Medications Sig/Rina Start time Last Medication Dose Route Stop Time Status Admin Albuterol Sulfate 3 ML EVERY 4 HRS/AWAKE 05/27 2000 AC 05/30 INH 0750 Albuterol Sulfate 2 PUF Q4-6 PRN PRN 05/27 1545 AC INH Amlodipine Besylate 5 MG DAILY 05/27 1830 AC 05/29 PO 1000 Budesonide/ 2 PUF BID 05/27 2200 AC 05/29 Formoterol Fumarate INH 2118 Epoetin Mohamud 1,000 UNIT TuThSa PRN 05/29 1645 AC IV Furosemide 80 MG DAILY 05/28 1000 AC 05/29 PO 0844 Heparin Sodium 5,000 UNIT Q8 05/27 1400 AC 05/30 (Porcine) SC 0559 Insulin Aspart 0 TIDAC 05/27 1830 AC 05/29 SC 1158 Insulin Detemir 4 UNITS DAILY 05/28 1000 AC 05/30 SC 1041 Levofloxacin 500 MG Q48H 05/31 1000 AC PO Lisinopril 5 MG DAILY 05/28 1000 AC 05/28 PO 0829 Lorazepam 0.5 MG Q4P PRN 05/30 0300 DC 05/30 IV 0257 Methylprednisolone 40 MG DAILY 05/30 1000 AC 05/30 IV 0935 Methylprednisolone 40 MG ONCE ONE 05/29 2230 DC 05/29 IV 05/29 2231 2237 Midodrine 5 MG SEE ADMIN CRITERIA.. 05/27 1545 AC 05/29 PO 1613 Pantoprazole Sodium 40 MG DAILY 05/28 1000 AC 05/30 IV 0935 Vital Signs & I&O Last 24 Hrs of Vitals and I&O: Vital Signs Date Time Temp Pulse Resp B/P B/P Pulse O2 O2 Flow FiO2 Mean Ox Delivery Rate 05/30 1100 98 Nasal 30% Cannula 05/30 0936 73 108/48 05/30 0935 73 108/48 05/30 0800 96 Nasal 40% Cannula 05/30 0745 66 95 05/30 0604 73 95 05/30 0404 67 95 05/30 0400 95 BIPAP 30% 05/30 0103 75 95 05/30 0000 97.7 74 24 145/68 96 BIPAP 30% 05/30 0000 96 BIPAP 30% 05/29 2029 77 95 05/29 2000 99 BIPAP 30% 05/29 1635 96 BIPAP 30% 05/29 1626 68 95 05/29 1607 97.9 63 28 88/46 97 BIPAP 30% 05/29 1600 97 BIPAP 30% 05/29 1450 66 99 05/29 1200 100 Nasal 3.0L Cannula 05/29 1200 97.8 76 20 100/50 100 Nasal 3.0L Cannula Intake & Output 05/30 1600 05/30 0800 05/30 0000 Intake Total 0 600 Output Total 0 1000 Balance 0 -400 Intake, IV 0 Intake, Oral 0 600 Number 0 1 Bowel Movements Output, 1000 Dialysate Output, Urine 0 0 Impression/Plan Impression/Plan Impression/Plan: General Appearance: well developed/nourished, awake, mild distress, on BIPAP Head: atraumatic, normal appearance Respiratory: rhonchi, wheezing, respiratory distress (when BIPAP is taken off) Cardiovascular: regular rate/rhythm Gastrointestinal: normal bowel sounds, soft, non-tender, distention Extremities: no edema 86-year-old gentleman with dialysis-dependent end-stage renal disease and a background of COPD now comes in with worsening shortness of breath of at least several days duration Issues Acute and chronic hypoxemic and hypercarbic respiratory failure in a gentleman with obstructive lung disease and on hemodialysis, was on oxygen at home. And this respiratory failure appears to be related to multiple issues including acute exacerbation of his obstructive lung disease, respiratory and metabolic acidosis, significant renal failure with end-stage renal disease on dialysis with difficulty lately with ultrafiltration due to his hypotension. He also has other issues since includes anemia, previous hypertension, significant diabetes, diastolic heart. Issues Acute on chronic hypoxemic and hypercarbic respiratory failure due to combination of issues including exacerbation of his obstructive lung disease, central apnea with obesity hypoventilation syndrome-like picture, worsening metabolic acidosis due to significant renal failure End-stage renal disease with on and off hypotension with inability to get adequate dialysis On and off delirium related to his hypercarbia and metabolic encephalopathy Diabetes and persistent hyperkalemia which is stable Previous S maltophilia infection REcent delirium RECOMMENDATION Continue dialysis Continue BiPAP on and off as needed Continue intravenous steroids and reduce the dose to 60 mg daily Changes antibiotic to levofloxacin and discontinue other antibiotics. Patient did have S maltophilia before and he seems to have ongoing thick secretions Patient not a candidate for Bactrim due to his persistent hyperkalemia Will follow closely Pt is critically ill tts 39 mins
[2017-05-30 12:00] VITALS: BP 118/50
[2017-05-30 16:00] VITALS: BP 122/48
[2017-05-31] VITALS: BP 136/60
[2017-05-31 05:28] LABS: ABSOLUTE BASOPHIL COUNT 0 /CUMM (0.0-0.2); ABSOLUTE EOSINOPHIL COUNT 0 /CUMM (0.0-0.7); ABSOLUTE GRANULOCYTE CT 5.8 /CUMM (1.4-6.5); ABSOLUTE LYMPH COUNT 0.5 /CUMM (1.2-3.4); BASOPHIL % 0.1 % (0.0-2.0); EOSINOPHIL % 0 % (0-5); GRANULOCYTE % 79.6 % (42.2-75.2); HEMATOCRIT 36.3 % (42-52); MEAN CORPUSCULAR HGB 30.4 PG (27.0-31.0); MEAN CORPUSCULAR HGB CONC 32.3 G/DL (33.0-37.0); MEAN PLATELET VOLUME 9.9 FL (7.4-10.4); PLATELET COUNT 165 /CUMM (130-400); RED BLOOD CELL CT 3.86 /CUMM (4.70-6.10); WHITE BLOOD CELL COUNT 7.3 /CUMM (4.8-10.8)
--- NOTE | 2017-05-31 07:23 | PN- Resident CRCU ---
Skyler FARFAN,Nicki 05/31/17 0723: Subjective HPI/CRCU Issues: Patient had no acute events overnight. Patient was seen and examined today. Patient states that his breathing has improved. Patient continues to have a chronic cough. Patient denies any chest pain, fever/chills, abdominal pain, nausea/vomiting Vitals: MAXIMUM TEMPERATURE 98.6, heart rate 60s to 80s, sinus rhythm, respiration rate 13-27, blood pressure 135/65, saturating 96-97% on high flow oxygen. Total intake:4030, output: 2400 Labs: WBC 7.3, H&H 11.7 and 36.3, platelets 165 Sodium 137, potassium 4.8, chloride 95, bicarbonate 23, anion gap 19, BUN 96, creatinine 6.4, glucose 334, calcium 6.6, phosphorus 5.5, magnesium 2.3, LFTs within normal limits, albumin 3.5 Objective Vital Signs & I&O Last 8 Hrs of Vitals and I&O: Vital Signs Date Time Temp Pulse Resp B/P B/P Pulse O2 O2 Flow FiO2 Mean Ox Delivery Rate 05/31 1400 97 Nasal 30% Cannula 05/31 1200 98 Nasal 30% Cannula 05/31 1132 98 Nasal 30% Cannula 05/31 0800 99 Nasal 30% Cannula 05/31 0800 97.3 73 24 124/50 99 Nasal 30% Cannula 05/31 0737 95 Nasal 30% Cannula 05/31 0438 97 Nasal 30% Cannula 05/31 0400 97 Nasal 30% Cannula 05/31 0103 95 Nasal 30% Cannula 05/31 0000 98.6 76 23 136/60 95 Nasal 30% Cannula 05/31 0000 95 Nasal 30% Cannula 05/30 2054 96 Nasal 30% Cannula 05/30 2000 99 Nasal 30% Cannula 05/30 1600 98.5 70 19 122/48 100 Nasal 30% Cannula 05/30 1600 100 Nasal 30% Cannula 05/30 1430 99 Nasal 30% Cannula 05/30 1430 80 99 Intake & Output 05/31 1600 05/31 0800 05/31 0000 Intake Total 0 800 Output Total 0 0 Balance 0 800 Intake, IV 0 0 Intake, Oral 0 800 Number 1 0 Bowel Movements Output, Urine 0 0 Patient 158 lb Weight Weight Bed scale Measurement Method Exam General Appearance: well developed/nourished, no apparent distress, alert, awake , comfortable Head: atraumatic, normal appearance Respiratory: rhonchi, wheezing Cardiovascular: regular rate/rhythm Gastrointestinal: normal bowel sounds, soft, non-tender Extremities: no edema Cranial Nerves: normal hearing, normal speech, PERRL Current Medications: Current Medications Sig/Rina Start time Last Medication Dose Route Stop Time Status Admin Albuterol Sulfate 3 ML EVERY 4 HRS/AWAKE 05/28 1999 AC 05/31 INH 0554 Albuterol Sulfate 2 PUF Q4-6 PRN PRN 05/27 1545 AC INH Amlodipine Besylate 5 MG DAILY 05/27 1830 AC 05/29 PO 1000 Budesonide/ 2 PUF BID 05/27 2200 AC 05/30 Formoterol Fumarate INH 2217 Calcitriol 1 MCG SAT 06/01 1000 AC IV Calcium Acetate 1,334 MG TIDAC 05/31 1200 AC PO Epoetin Mohamud 1,000 UNIT TuThSa PRN 05/29 1645 AC IV Furosemide 80 MG DAILY 05/28 1000 AC 05/29 PO 0844 Heparin Sodium 5,000 UNIT Q8 05/27 1400 AC 05/31 (Porcine) SC 0557 Insulin Aspart 2 UNITS ONCE ONE 05/31 0600 DC 05/31 SC 05/31 0601 0557 Insulin Aspart 0 TIDAC 05/27 1830 AC 05/31 SC 1200 Insulin Detemir 4 UNITS DAILY 05/28 1000 AC 05/31 SC 1000 Levofloxacin 500 MG Q48H 05/31 1000 AC PO Lisinopril 5 MG DAILY 05/28 1000 AC 05/28 PO 0829 Methylprednisolone 60 MG DAILY 05/31 1000 AC IV Methylprednisolone 40 MG ONCE ONE 05/30 1800 DC 05/30 IV 05/30 1801 1727 Midodrine 5 MG SEE ADMIN CRITERIA.. 05/27 1545 AC 05/29 PO 1613 Pantoprazole Sodium 40 MG DAILY 05/28 1000 AC 05/30 IV 0935 Impression/Plan Impression/Problem List Impression: Patient is an 86-year-old male with past medical history of insulin-dependent diabetes mellitus, end-stage renal disease on dialysis every Wednesday, , Wednesday with an AV fistula in his right arm, COPD on 2 L oxygen at home, asthma , hypertension who presented this admission with worsening dyspnea. Patient was admitted to the ICU for management of the following: Respiratory: Acute Hypoxic and Hypercarbic Respiratory Distress secondary to Acute COPD Exacerbation Patient's ABG showed a mixed respiratory acidosis pictures with metabolic acidosis. Chest xray shows no focal consolidation or signs of fluid overload. Patient was tranisitioned from BIPAP to high flow oxygen. Patient's respiratory status has improved today. 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 - Continue high flow oxygen - TRC/ Neb treatments q4h - Continue levaquin - Symbicort - IV Solu-medrol 60mg daily Infectious: COPD Exacerbation - See above Cardiac: History of HTN: - continue to monitor bp. Reported bp by dialysis on day of admission was systolic of 109. Patient's bp during his admission remains elevated. Patient had and ECHO of LVEF >60% with right ventricular systolic pressure >69 mmHg. 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 Metabolic: Diabetes Mellitus -Insulin SS, Accuchecks -Levemir 4 units daily Hyperkalemia -Patient has ESRD. Patient will received dialysis on 06/01. - continue to monitor K - continue to monitor on tele Ailementary: Consistent carbohydrate diet with renal restrictions Neurology: None Nephrology: ESRD on HD Wednesday, , Wednesday. - dialysis on 06/01 - continue to monitor I/O - continue to monitor electrolytes - nephrology consulted. appreciate recommendations - started on calcium acetate 1334 mg with meals - calcitriol for hypocalcemia - to be given with hemodialysis DVT PPx: Heparin SQ and ALPS GI PPx: IV Protonix Problem List: 1. Acute on chronic respiratory failure with hypoxia and hypercapnia 2. COPD with exacerbation 3. ESRD on dialysis 4. Diabetes mellitus Pain Ratin Tomorrow's Labs & Rationales: cbc icu bundle - electrolytes Plan DVT/Prophylaxis: mechanical, pharmacological Anish Lock MD 05/31/17 0919: Attending MD Review Statement Attending Sign Off Attending Cosign Statement: I have: examined this patient, reviewed [employer] EMR data, personally reviewd images, discussd w/resident/PA/SIGNAL MANAGER, discussed mgmt plan w/corie, discussed mgmt plan w/CM, discussed mgmt plan w/pt, agreed w/resident/PA/SIGNAL MANAGER, amended to note. Other Findings: IAnish M.D. have examined this patient, reviewed available EMR data, personally reviewed images, discussed with resident/PA/SIGNAL MANAGER, discussed management plan with housestaff and nursing staff, discussed managment plan all of healthcare providers, discussed management plan with patient and/or family, agreed with resident/PA/SIGNAL MANAGER. The past history and parts of the chart have been autopopulated. Impression 86 year old man * acute hypoxemic respiratory failure * ESRD on HD Plan -bipap for reduction of work of breathing -taper steroids -trc/nebs -renal consultation -HD per nephrology -ceftriaxone/zithromax for now TTS 35 min
[2017-05-31 08:00] VITALS: BP 124/50
--- NOTE | 2017-05-31 10:23 | PN- Nephrology ---
Assessment/Plan Nephrology Assessment: 1. ESRD: due to DM & HTN; no HD need today 2. Resp failure: due to severe chronic lung dx; not volume overloaded & no UF indication today. Continue steroids, bronchodilators, & antibiotics per pulm 3. Hypocalcemia: needs calcitriol w HD & phos binder Suggestion: 1. Ca acetate 1334 mg meals 2. Calcitriol 1 mcg IV TuThSat w HD 3. HD tomorrow Subjective Subjective: Still SOB No uremic sx On hi flow O2 Objective Vital Signs and I&Os Vital Signs Date Time Temp Pulse Resp B/P B/P Pulse O2 O2 Flow FiO2 Mean Ox Delivery Rate 06/01 799 99 Nasal 30% Cannula 05/31 08 97.3 73 24 124/50 99 Nasal 30% Cannula 05/31 0737 95 Nasal 30% Cannula 05/31 0438 97 Nasal 30% Cannula 05/31 0400 97 Nasal 30% Cannula 05/31 0103 95 Nasal 30% Cannula 05/31 0000 98.6 76 23 136/60 95 Nasal 30% Cannula 05/31 0000 95 Nasal 30% Cannula 05/30 2054 96 Nasal 30% Cannula 05/30 2000 99 Nasal 30% Cannula 05/30 1600 98.5 70 19 122/48 100 Nasal 30% Cannula 05/30 1600 100 Nasal 30% Cannula 05/30 1430 99 Nasal 30% Cannula 05/30 1430 80 99 05/30 1405 66 100 05/30 1200 100 BIPAP 30% 05/30 1200 98.4 62 24 118/50 97 BIPAP 30% 05/30 1139 99 BIPAP 30% 05/30 1135 63 99 05/30 1100 98 Nasal 30% Cannula Intake & Output 05/31 1600 05/31 0400 05/30 1600 05/30 0400 05/29 1600 05/29 0400 Intake Total 0 800 250 600 610 480 Output Total 0 0 0 1000 1400 Balance 0 800 250 -400 610 -920 Intake, IV 0 0 0 0 250 0 Intake, Oral 0 800 250 600 360 480 Number 1 0 0 1 2 0 Bowel Movements Output, 1000 1400 Dialysate Output, Urine 0 0 0 0 0 Patient 158 lb 70 lb 7 oz 155 lb Weight Weight Bed scale Bed scale Bed scale Measurement Method Physical Exam General Appearance: comfortable Head: atraumatic, normal appearance Ears, Nose, Throat: hi flow O2 by NC Neck: normal inspection Respiratory: rhonchi, wheezing Cardiovascular: regular rate/rhythm, friction rub (none) Abdomen: soft, non-tender, no organomegaly Extremities: no edema, + bruit R arm AVF Neurologic/Psychiatric: no motor/sensory deficits, awake, alert Skin: intact, normal color, warm/dry Lymphatic: no anterior cervical whitley Current Medications: Current Medications Sig/Rina Start time Last Medication Dose Route Stop Time Status Admin Albuterol Sulfate 3 ML EVERY 4 HRS/AWAKE 05/28 1999 AC 05/31 INH 0554 Albuterol Sulfate 2 PUF Q4-6 PRN PRN 05/27 1545 AC INH Amlodipine Besylate 5 MG DAILY 05/27 1830 AC 05/29 PO 1000 Budesonide/ 2 PUF BID 05/27 2200 AC 05/30 Formoterol Fumarate INH 2217 Epoetin Mohamud 1,000 UNIT TuThSa PRN 05/29 1645 AC IV Furosemide 80 MG DAILY 05/28 1000 AC 05/29 PO 0844 Heparin Sodium 5,000 UNIT Q8 05/27 1400 AC 05/31 (Porcine) SC 0557 Insulin Aspart 2 UNITS ONCE ONE 05/31 0600 DC 05/31 SC 05/31 0601 0557 Insulin Aspart 0 TIDAC 05/27 1830 AC 05/31 SC 0856 Insulin Detemir 4 UNITS DAILY 05/28 1000 AC 05/30 SC 1041 Levofloxacin 500 MG Q48H 05/31 1000 AC PO Lisinopril 5 MG DAILY 05/28 1000 AC 05/28 PO 0829 Methylprednisolone 60 MG DAILY 05/31 1000 AC IV Methylprednisolone 40 MG ONCE ONE 05/30 1800 DC 05/30 IV 05/30 1801 1727 Methylprednisolone 40 MG DAILY 05/30 1000 DC 05/30 IV 0935 Midodrine 5 MG SEE ADMIN CRITERIA.. 05/27 1545 AC 05/29 PO 1613 Pantoprazole Sodium 40 MG DAILY 05/28 1000 AC 05/30 IV 0935 Results Pertinent Lab Results: Laboratory Tests 05/31 05/30 0518 0415 Chemistry Sodium (137 - 145 mmol/L) 137 138 Potassium (3.5 - 5.1 mmol/L) 4.8 4.9 Chloride (98 - 107 mmol/L) 95 L 96 L Carbon Dioxide (22 - 30 mmol/L) 23 26 Anion Gap (5 - 16) 19 H 16 BUN (9 - 20 mg/dL) 96 H 44 H Creatinine (0.7 - 1.2 mg/dL) 6.4 *H 3.6 H Estimated GFR (>60 ml/min) 8 L 16 L Glucose (65 - 99 mg/dL) 336 H 187 H Calcium (8.4 - 10.2 mg/dL) 6.6 L 7.8 L Phosphorus (2.5 - 4.5 mg/dL) 5.5 H 4.8 H Magnesium (1.6 - 2.3 mg/dL) 2.3 2.0 Total Bilirubin (0.2 - 1.3 mg/dL) 0.5 0.5 AST (17 - 59 U/L) 12 L 20 ALT (21 - 72 U/L) 22 30 Albumin (3.5 - 5.0 g/dL) 3.5 3.6 Hematology CBC w Diff NO MAN DIFF REQ NO MAN DIFF REQ WBC (4.8 - 10.8 /CUMM) 7.3 8.6 RBC (4.70 - 6.10 /CUMM) 3.86 L 3.99 L Hgb (14.0 - 18.0 G/DL) 11.7 L 12.0 L Hct (42 - 52 %) 36.3 L 37.4 L MCV (80.0 - 94.0 FL) 94.0 93.8 MCH (27.0 - 31.0 PG) 30.4 30.1 MCHC (33.0 - 37.0 G/DL) 32.3 L 32.1 L RDW (11.5 - 14.5 %) 15.0 H 15.1 H Plt Count (130 - 400 /CUMM) 165 153 MPV (7.4 - 10.4 FL) 9.9 10.6 H Gran % (42.2 - 75.2 %) 79.6 H 93.6 H Lymphocytes % (20.5 - 51.1 %) 6.7 L 3.4 L Monocytes % (1.7 - 9.3 %) 13.6 H 3.0 Eosinophils % (0 - 5 %) 0 0 Basophils % (0.0 - 2.0 %) 0.1 0 Absolute Granulocytes (1.4 - 6.5 /CUMM) 5.8 8.1 H Absolute Lymphocytes (1.2 - 3.4 /CUMM) 0.5 L 0.3 L Absolute Monocytes (0.10 - 0.60 /CUMM) 1.0 H 0.3 Absolute Eosinophils (0.0 - 0.7 /CUMM) 0 0 Absolute Basophils (0.0 - 0.2 /CUMM) 0 0 05/29 05/29 0400 0330 Blood Gas pH (7.35 - 7.45 PH) 7.26 *L pCO2 (35 - 45 TORR) 51 H pO2 (80 - 100 TORR) 96 HCO3 (21 - 28 MEQ/L) 23 ABG O2 Sat (Measured) (>96.0 %) 95.0 L P-50 (Temp Corrected) Y Carboxyhemoglobin (1.5 - 5.0 %) 0.8 L O2 Concentration % 30% Temperature (97.0 - 100.0 FARH) 97.6 Respiration Rate (BPM) 24 O2 Delivery Method VISION-FFM Vent Mode ST Expiratory Pressure (CM H2O P) 6 Inspiratory Pressure (CM H2O P) 20 Chemistry Sodium (137 - 145 mmol/L) 136 L Potassium (3.5 - 5.1 mmol/L) 5.5 H Chloride (98 - 107 mmol/L) 95 L Carbon Dioxide (22 - 30 mmol/L) 22 Anion Gap (5 - 16) 19 H BUN (9 - 20 mg/dL) 66 H Creatinine (0.7 - 1.2 mg/dL) 5.6 *H Estimated GFR (>60 ml/min) 10 L Glucose (65 - 99 mg/dL) 197 H Calcium (8.4 - 10.2 mg/dL) 7.5 L Phosphorus (2.5 - 4.5 mg/dL) 6.4 H Magnesium (1.6 - 2.3 mg/dL) 2.0 Total Bilirubin (0.2 - 1.3 mg/dL) 0.5 AST (17 - 59 U/L) 18 ALT (21 - 72 U/L) 24 Albumin (3.5 - 5.0 g/dL) 3.8 Hematology CBC w Diff NO MAN DIFF REQ WBC (4.8 - 10.8 /CUMM) 9.1 RBC (4.70 - 6.10 /CUMM) 3.86 L Hgb (14.0 - 18.0 G/DL) 11.6 L Hct (42 - 52 %) 35.9 L MCV (80.0 - 94.0 FL) 93.1 MCH (27.0 - 31.0 PG) 30.1 MCHC (33.0 - 37.0 G/DL) 32.4 L RDW (11.5 - 14.5 %) 15.4 H Plt Count (130 - 400 /CUMM) 165 MPV (7.4 - 10.4 FL) 10.5 H Gran % (42.2 - 75.2 %) 94.0 H Lymphocytes % (20.5 - 51.1 %) 3.1 L Monocytes % (1.7 - 9.3 %) 2.9 Eosinophils % (0 - 5 %) 0 Basophils % (0.0 - 2.0 %) 0 Absolute Granulocytes (1.4 - 6.5 /CUMM) 8.5 H Absolute Lymphocytes (1.2 - 3.4 /CUMM) 0.3 L Absolute Monocytes (0.10 - 0.60 /CUMM) 0.3 Absolute Eosinophils (0.0 - 0.7 /CUMM) 0 Absolute Basophils (0.0 - 0.2 /CUMM) 0 Miscellaneous Phlebotomy Draw Site LEFT RADIAL Imaging/Other Studies: CXR: The lungs are clear with no focal consolidation. No evidence of pneumothorax, pulmonary edema, or pleural effusions. The cardiomediastinal contour is unremarkable. No acute osseous findings are seen. Stent is again seen projecting over the right infraclavicular region medially.
[2017-05-31 23:13] VITALS: BP 106/56
[2017-06-01 04:12] LABS: ABSOLUTE BASOPHIL COUNT 0 /CUMM (0.0-0.2); ABSOLUTE EOSINOPHIL COUNT 0 /CUMM (0.0-0.7); ABSOLUTE GRANULOCYTE CT 7.2 /CUMM (1.4-6.5); ABSOLUTE LYMPH COUNT 0.5 /CUMM (1.2-3.4); ABSOLUTE MONOCYTE COUNT 0.2 /CUMM (0.10-0.60); BASOPHIL % 0 % (0.0-2.0); EOSINOPHIL % 0 % (0-5); GRANULOCYTE % 90.7 % (42.2-75.2); HEMATOCRIT 36.1 % (42-52); MEAN CORPUSCULAR HGB 30.2 PG (27.0-31.0); MEAN CORPUSCULAR HGB CONC 32.2 G/DL (33.0-37.0); MEAN CORPUSCULAR VOLUME 93.6 FL (80.0-94.0); MEAN PLATELET VOLUME 9.8 FL (7.4-10.4); RBC DISTRIBUTION WIDTH 14.4 % (11.5-14.5); RED BLOOD CELL CT 3.86 /CUMM (4.70-6.10)
[2017-06-01 04:37] LABS: PLATELET COUNT 162 /CUMM (130-400)
[2017-06-01 08:00] VITALS: BP 120/70
--- NOTE | 2017-06-01 09:44 | PN- Nephrology ---
Assessment/Plan Nephrology Assessment: 1. ESRD: due to DM & HTN; HD in progress 2. Resp failure: due to severe chronic lung dx; continue steroids, bronchodilators, & antibiotics per pulm. UF 2 liters w HD. 3. Hypocalcemia: on hi Ca dialysate --> 3 mmole/L; needs increased Ca acetate binder w meals Suggestion: 1. increase Ca acetate 2001 mg w meals 2. calcitriol IV w HD 3. next HD Thur Subjective Subjective: Less SOB - cough improving Still hi flow O2 Objective Vital Signs and I&Os Vital Signs Date Time Temp Pulse Resp B/P B/P Pulse O2 O2 Flow FiO2 Mean Ox Delivery Rate 06/01 0830 100 Nasal 35% Cannula 06/01 0800 94 Nasal 30% Cannula 06/01 0400 97 Nasal 30% Cannula 06/01 0046 96 Nasal 30% Cannula 06/01 0000 97 Nasal 30% Cannula 05/31 2313 98.0 64 16 106/56 97 Nasal 30% Cannula 05/31 2036 96 Nasal 30% Cannula 05/31 2000 97 Nasal 30% Cannula 05/31 1915 96 Nasal 30% Cannula 05/31 1600 97 Nasal 30% Cannula 05/31 1400 97 Nasal 30% Cannula 05/31 1200 98 Nasal 30% Cannula 05/31 1132 98 Nasal 30% Cannula Intake & Output 06/01 1600 06/01 0400 05/31 1600 05/31 0400 05/30 1600 05/30 0400 Intake Total 240 240 600 800 250 600 Output Total 0 0 0 1000 Balance 240 240 600 800 250 -400 Intake, IV 0 0 0 0 Intake, Oral 240 240 600 800 250 600 Number 1 1 0 0 1 Bowel Movements Output, 1000 Dialysate Output, Urine 0 0 0 0 Patient 158 lb 70 lb 7 oz Weight Weight Bed scale Bed scale Measurement Method Physical Exam General Appearance: alert, awake Head: atraumatic, normal appearance Ears, Nose, Throat: hi flow O2 by NC Neck: normal inspection, supple Respiratory: crackles, rhonchi Cardiovascular: regular rate/rhythm, friction rub (none) Abdomen: soft, non-tender, no organomegaly Extremities: no edema Neurologic/Psychiatric: awake, alert, no [place] Skin: intact, normal color Lymphatic: no anterior cervical whitley Current Medications: Current Medications Sig/Rina Start time Last Medication Dose Route Stop Time Status Admin Albuterol Sulfate 3 ML EVERY 4 HRS/AWAKE 05/28 1999 AC 06/01 INH 0827 Albuterol Sulfate 2 PUF Q4-6 PRN PRN 05/27 1545 AC INH Amlodipine Besylate 5 MG DAILY 05/27 1830 AC 06/01 PO 0848 Budesonide/ 2 PUF BID 05/27 2200 AC 06/01 Formoterol Fumarate INH 0928 Calcitriol 1 MCG TUES THURS SAT 06/01 1000 AC IV Calcium Acetate 1,334 MG TIDAC 05/31 1200 AC 06/01 PO 0850 Epoetin Mohamud 1,000 UNIT TuThSa PRN 05/29 1645 AC IV Furosemide 80 MG DAILY 05/28 1000 AC 06/01 PO 0847 Guaifenesin 10 ML ONCE ONE 06/01 0815 DC 06/01 PO 06/01 0816 0812 Heparin Sodium 5,000 UNIT Q8 05/27 1400 AC 06/01 (Porcine) SC 0507 Insulin Aspart 0 TIDAC 05/27 1830 AC 05/31 SC 1623 Insulin Detemir 4 UNITS DAILY 05/28 1000 AC 06/01 SC 0902 Levofloxacin 500 MG Q48H 05/31 1000 AC 05/31 PO 1423 Lisinopril 5 MG DAILY 05/28 1000 AC 06/01 PO 0848 Methylprednisolone 60 MG DAILY 05/31 1000 AC 06/01 IV 0849 Midodrine 5 MG SEE ADMIN CRITERIA.. 05/27 1545 AC 05/29 PO 1613 Pantoprazole Sodium 40 MG DAILY 05/28 1000 AC 06/01 IV 0849 Results Pertinent Lab Results: Laboratory Tests 06/01 05/31 0400 0518 Chemistry Sodium (137 - 145 mmol/L) 136 L 137 Potassium (3.5 - 5.1 mmol/L) 5.9 H 4.8 Chloride (98 - 107 mmol/L) 94 L 95 L Carbon Dioxide (22 - 30 mmol/L) 19 L 23 Anion Gap (5 - 16) 23 H 19 H BUN (9 - 20 mg/dL) 136 *H 96 H Creatinine (0.7 - 1.2 mg/dL) 8.3 *H 6.4 *H Estimated GFR (>60 ml/min) 6 L 8 L Glucose (65 - 99 mg/dL) 300 H 336 H Calcium (8.4 - 10.2 mg/dL) 6.3 L 6.6 L Phosphorus (2.5 - 4.5 mg/dL) 6.9 H 5.5 H Magnesium (1.6 - 2.3 mg/dL) 2.3 2.3 Total Bilirubin (0.2 - 1.3 mg/dL) 0.5 0.5 AST (17 - 59 U/L) 12 L 12 L ALT (21 - 72 U/L) 26 22 Albumin (3.5 - 5.0 g/dL) 3.5 3.5 Hematology CBC w Diff NO MAN DIFF REQ NO MAN DIFF REQ WBC (4.8 - 10.8 /CUMM) 8.0 7.3 RBC (4.70 - 6.10 /CUMM) 3.86 L 3.86 L Hgb (14.0 - 18.0 G/DL) 11.6 L 11.7 L Hct (42 - 52 %) 36.1 L 36.3 L MCV (80.0 - 94.0 FL) 93.6 94.0 MCH (27.0 - 31.0 PG) 30.2 30.4 MCHC (33.0 - 37.0 G/DL) 32.2 L 32.3 L RDW (11.5 - 14.5 %) 14.4 15.0 H Plt Count (130 - 400 /CUMM) 162 165 MPV (7.4 - 10.4 FL) 9.8 9.9 Gran % (42.2 - 75.2 %) 90.7 H 79.6 H Lymphocytes % (20.5 - 51.1 %) 6.5 L 6.7 L Monocytes % (1.7 - 9.3 %) 2.8 13.6 H Eosinophils % (0 - 5 %) 0 0 Basophils % (0.0 - 2.0 %) 0 0.1 Absolute Granulocytes (1.4 - 6.5 /CUMM) 7.2 H 5.8 Absolute Lymphocytes (1.2 - 3.4 /CUMM) 0.5 L 0.5 L Absolute Monocytes (0.10 - 0.60 /CUMM) 0.2 1.0 H Absolute Eosinophils (0.0 - 0.7 /CUMM) 0 0 Absolute Basophils (0.0 - 0.2 /CUMM) 0 0 04/08 0415 Chemistry Sodium (137 - 145 mmol/L) 138 Potassium (3.5 - 5.1 mmol/L) 4.9 Chloride (98 - 107 mmol/L) 96 L Carbon Dioxide (22 - 30 mmol/L) 26 Anion Gap (5 - 16) 16 BUN (9 - 20 mg/dL) 44 H Creatinine (0.7 - 1.2 mg/dL) 3.6 H Estimated GFR (>60 ml/min) 16 L Glucose (65 - 99 mg/dL) 187 H Calcium (8.4 - 10.2 mg/dL) 7.8 L Phosphorus (2.5 - 4.5 mg/dL) 4.8 H Magnesium (1.6 - 2.3 mg/dL) 2.0 Total Bilirubin (0.2 - 1.3 mg/dL) 0.5 AST (17 - 59 U/L) 20 ALT (21 - 72 U/L) 30 Albumin (3.5 - 5.0 g/dL) 3.6 Hematology CBC w Diff NO MAN DIFF REQ WBC (4.8 - 10.8 /CUMM) 8.6 RBC (4.70 - 6.10 /CUMM) 3.99 L Hgb (14.0 - 18.0 G/DL) 12.0 L Hct (42 - 52 %) 37.4 L MCV (80.0 - 94.0 FL) 93.8 MCH (27.0 - 31.0 PG) 30.1 MCHC (33.0 - 37.0 G/DL) 32.1 L RDW (11.5 - 14.5 %) 15.1 H Plt Count (130 - 400 /CUMM) 153 MPV (7.4 - 10.4 FL) 10.6 H Gran % (42.2 - 75.2 %) 93.6 H Lymphocytes % (20.5 - 51.1 %) 3.4 L Monocytes % (1.7 - 9.3 %) 3.0 Eosinophils % (0 - 5 %) 0 Basophils % (0.0 - 2.0 %) 0 Absolute Granulocytes (1.4 - 6.5 /CUMM) 8.1 H Absolute Lymphocytes (1.2 - 3.4 /CUMM) 0.3 L Absolute Monocytes (0.10 - 0.60 /CUMM) 0.3 Absolute Eosinophils (0.0 - 0.7 /CUMM) 0 Absolute Basophils (0.0 - 0.2 /CUMM) 0 Imaging/Other Studies: CXR: The lungs are clear with no focal consolidation. No evidence of pneumothorax, pulmonary edema, or pleural effusions. The cardiomediastinal contour is unremarkable. No acute osseous findings are seen. Stent is again seen projecting over the right infraclavicular region medially.
--- NOTE | 2017-06-01 11:01 | PN- Resident CRCU ---
War[facility] FARFAN,[facility] [place] 06/01/17 1100: Subjective HPI/CRCU Issues: -Acute on chronic hypoxic and hypercarbic respiratory failure due to COPD/asthma exacerbation(currently off Bipap). -ESRD on hemodialysis with on and off hypotension. -Diabetes and persistent hyperkalemia which is improved with hemodialysis -Microcytic anemia related to chronic disease and renal failure. -Hx. of hypertension. 24 Hour Events: Patient had the hemodialysis today. Reports lightheadedness after the hemodialysis with blood pressure 108/48 which could be the reason for the lightheadedness. Otherwise remains comfortable. Continues to have the cough with white clear sputum production. Denies any fevers chills. Objective Vital Signs & I&O Last 8 Hrs of Vitals and I&O: Intake & Output 06/01 1600 Intake Total 430 Output Total 1999 Balance -1570 Intake, IV 30 Intake, Oral 400 Number 0 Bowel Movements Output, 1999 Dialysate Exam General Appearance: no apparent distress, alert, awake, comfortable Respiratory: rhonchi, rales Cardiovascular: regular rate/rhythm Gastrointestinal: normal bowel sounds, soft, non-tender Extremities: no edema Cranial Nerves: normal hearing, normal speech, PERRL Current Medications: Current Medications Sig/Rina Start time Last Medication Dose Route Stop Time Status Admin Acetylcysteine 2 ML BID 06/01 1145 AC 06/01 INH 1200 Acetylcysteine 2 ML ONCE ONE 06/01 1115 CAN INH 06/01 1116 Acetylcysteine 2 ML ONCE ONE 06/01 1045 CAN INH 06/01 1046 Albuterol Sulfate 3 ML EVERY 4 HRS/AWAKE 05/27 2000 AC 06/01 INH 1200 Albuterol Sulfate 2 PUF Q4-6 PRN PRN 05/27 1545 AC INH Amlodipine Besylate 5 MG DAILY 05/27 1830 AC 06/01 PO 0848 Budesonide/ 2 PUF BID 05/27 2200 AC 06/01 Formoterol Fumarate INH 0928 Calcitriol 1 MCG TU THURS SAT 06/01 1000 AC 06/01 IV 1100 Calcium Acetate 2,001 MG TIDAC 06/01 1200 AC 06/01 PO 1134 Calcium Acetate 1,334 MG TIDAC 05/31 1200 DC 06/01 PO 0850 Epoetin Mohamud 1,000 UNIT TuThSa PRN 05/29 1645 AC 06/01 IV 1100 Furosemide 80 MG DAILY 05/28 1000 DC 05/29 PO 0844 Guaifenesin 10 ML ONCE ONE 06/01 0815 DC 06/01 PO 06/01 0816 0812 Heparin Sodium 5,000 UNIT Q8 05/27 1400 AC 06/01 (Porcine) SC 1406 Insulin Aspart 0 TIDAC 05/27 1830 AC 06/01 SC 0800 Insulin Detemir 4 UNITS DAILY 05/28 1000 AC 06/01 SC 0902 Levofloxacin 500 MG Q48H 05/31 1000 AC 05/31 PO 1423 Lisinopril 5 MG DAILY 05/28 1000 AC 06/01 PO 0848 Methylprednisolone 60 MG DAILY 05/31 1000 AC 06/01 IV 0849 Midodrine 5 MG SEE ADMIN CRITERIA.. 05/27 1545 AC 05/29 PO 1613 Pantoprazole Sodium 40 MG DAILY 05/28 1000 AC 06/01 IV 0849 CXR Findings: FINDINGS: Lungs are clear. No pulmonary vascular congestion. There is no pleural effusion. The heart size is normal. The cardiac and mediastinal contours are normal. There are calcifications of the thoracic aorta. There is a vascular stent over the right upper chest. There are multilevel degenerative changes of dorsal spine. IMPRESSION: No acute abnormality of the chest. Impression/Plan Impression/Problem List Impression: Patient is an 86-year-old male with past medical history of insulin-dependent diabetes mellitus, end-stage renal disease on dialysis every Wednesday, , Wednesday with an AV fistula in his right arm, COPD on 2 L oxygen at home, asthma , hypertension who presented this admission with worsening dyspnea. Patient was admitted to the ICU for management of the following: Respiratory: Acute Hypoxic and Hypercarbic Respiratory Distress secondary to Acute COPD Exacerbation Patient's ABG showed a mixed respiratory acidosis pictures with metabolic acidosis. Chest xray shows no focal consolidation or signs of fluid overload. Patient was tranisitioned from BIPAP --> to high flow oxygen --> to nasal canula today. Patient's respiratory status has improved today. 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 - Transitioned from high flow oxygen to nasal cannula today. - TRC/ Neb treatments q4h and start the patient on Mucomyst nebs - Continue Levaquin - Symbicort - IV Solu-medrol 60mg daily, change to 40 daily tomorrow - Repeat chest x-ray today to assess for fluid overload. Infectious: COPD Exacerbation - See above Cardiac: History of HTN: - continue to monitor bp. Reported bp by dialysis on day of admission was systolic of 109. Patient's bp during his admission remains elevated. Patient had and ECHO of LVEF >60% with right ventricular systolic pressure >69 mmHg. 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 Metabolic: 1. Diabetes Mellitus -Insulin SS, Accuchecks -Levemir 4 units daily 2. Hyperkalemia -Patient has ESRD. Patient received dialysis today. - continue to monitor K - continue to monitor on tele Ailementary: Consistent carbohydrate diet with renal restrictions Neurology: None Nephrology: ESRD on HD Wednesday, , Wednesday. - dialysis today - continue to monitor I/O - continue to monitor electrolytes - Lasix was DC'd as the patient has no urine output. - nephrology consulted. appreciate recommendations - Calcium acetate increased from 1334 to 2001mg with meals - Calcitriol for hypocalcemia - to be given with hemodialysis DVT PPx: Heparin SQ and ALPS GI PPx: IV Protonix Patient is full code Problem List: 1. ESRD on dialysis 2. COPD with exacerbation 3. Hyperkalemia, diminished renal excretion Pain Ratin Pain Location: NA Tomorrow's Labs & Rationales: CBC ICU Bundle Plan DVT/Prophylaxis: mechanical, pharmacological Anish Lock MD 06/01/17 1351: Attending MD Review Statement Attending Sign Off Attending Cosign Statement: I have: examined this patient, reviewed aval EMR data, personally reviewd images, discussd w/resident/PA/SENIOR WEB SERVICES DEVELOPER, discussed mgmt plan w/corie, discussed mgmt plan w/CM, discussed mgmt plan w/pt, agreed w/resident/PA/SENIOR WEB SERVICES DEVELOPER, amended to note. Other Findings: Anish Bates M.D. have examined this patient, reviewed available EMR data, personally reviewed images, discussed with resident/PA/SENIOR WEB SERVICES DEVELOPER, discussed management plan with housestaff and nursing staff, discussed managment plan all of healthcare providers, discussed management plan with patient and/or family, agreed with resident/PA/SENIOR WEB SERVICES DEVELOPER. The past history and parts of the chart have been autopopulated. Impression 86 year old man * acute hypoxemic respiratory failure * ESRD on HD Plan -trial of nasal cannula if tolerated -taper steroids -trc/nebs -renal consultation appreciated -HD per nephrology -cardiology consultation for ventricular arrhythmia -complete course of abx TTS 35 min DG to telemetry
--- NOTE | 2017-06-01 12:30 | Cons- Cardiology ---
General Information and HPI Consulting Request Date of Consult: 06/01/17 Requested By: Anish Lock MD Reason for Consult: ventricular tachycardia History of Present Illness: The patient is an 86-year-old male with history of end-stage renal disease on hemodialysis, COPD, and hypertension who presented with shortness of breath, and is admitted with acute hypoxic respiratory failure secondary to COPD exacerbation. His pulmonary status has been improving on steroids and nebulizer therapies. He has been receiving antibiotics for possible pneumonia. He has been continued on hemodialysis. he was noted on the monitor to have a 7 beat run of ventricular tachycardia, which was asymptomatic. No syncope. No orthopnea. No shortness No diaphoresis. no nausea or vomiting. Allergies/Medications Allergies: Coded Allergies: No Known Allergies (11/03/16) Home Med List: Albuterol Sulfate (Ventolin Hfa) 90 MCG HFA.AER.AD 2 PUF INH Q4-6 PRN PRN SHORTNESS OF BREATH (Reported) Amlodipine Besylate 5 MG TABLET 1 TAB PO DAILY HTN Atenolol 25 MG TABLET 1 TAB PO DAILY blood pressure (Reported) Budesonide/Formoterol Fumarate (Symbicort 160-4.5 Mcg Inhaler) 160 MCG-4.5 MCG/ ACTUATION HFA.AER.AD 2 PUF INH BID BREATHING PROBLEMS (Reported) Furosemide 80 MG TABLET 1 TAB PO 2XW FLuid overload (Reported) Insulin Aspart, Recombinant (Novolog Flexpen) 100 UNIT/ML INSULN.PEN 1 UNIT SC TIDAC DM (Reported) Insulin Glargine,Hum.rec.anlog (Lantus Solostar) 100 UNIT/ML (3 ML) INSULN.PEN 4 UNIT SC QPM DIABETES MELLITUS (Reported) Lisinopril 5 MG TABLET 1 TAB PO DAILY blood pressure (Reported) Midodrine HCl 5 MG TABLET 1 TAB PO DAILY BEFORE DIALYSIS (Reported) Pantoprazole Sodium (Protonix) 40 MG TABLET.DR 1 TAB PO DAILY GERD Current Medications: Current Medications Sig/Rina Start time Last Medication Dose Route Stop Time Status Admin Acetylcysteine 2 ML BID 06/01 1145 AC 06/01 INH 1200 Acetylcysteine 2 ML ONCE ONE 06/01 1115 CAN INH 06/01 1116 Acetylcysteine 2 ML ONCE ONE 06/01 1045 CAN INH 06/01 1046 Albuterol Sulfate 3 ML EVERY 4 HRS/AWAKE 05/28 1999 AC 06/01 INH 1657 Albuterol Sulfate 2 PUF Q4-6 PRN PRN 05/27 1545 AC INH Amlodipine Besylate 5 MG DAILY 05/27 1830 AC 06/01 PO 0848 Budesonide/ 2 PUF BID 05/27 2200 AC 06/01 Formoterol Fumarate INH 0928 Calcitriol 1 MCG TUES THURS SAT 06/01 1000 AC 06/01 IV 1100 Calcium Acetate 2,001 MG TIDAC 06/01 1200 AC 06/01 PO 1652 Calcium Acetate 1,334 MG TIDAC 05/31 1200 DC 06/01 PO 0850 Epoetin Mohamud 1,000 UNIT TuThSa PRN 05/29 1645 AC 06/01 IV 1100 Furosemide 80 MG DAILY 05/28 1000 DC 05/29 PO 0844 Guaifenesin 10 ML ONCE ONE 06/01 0815 DC 06/01 PO 06/01 0816 0812 Heparin Sodium 5,000 UNIT Q8 05/27 1400 AC 06/01 (Porcine) SC 1406 Insulin Aspart 0 TIDAC 05/27 1830 AC 06/01 SC 1711 Insulin Detemir 4 UNITS DAILY 05/28 1000 AC 06/01 SC 0902 Levofloxacin 500 MG Q48H 05/31 1000 AC 05/31 PO 1423 Lisinopril 5 MG DAILY 05/28 1000 AC 06/01 PO 0848 Methylprednisolone 60 MG DAILY 05/31 1000 AC 06/01 IV 0849 Midodrine 5 MG SEE ADMIN CRITERIA.. 05/27 1545 AC 05/29 PO 1613 Pantoprazole Sodium 40 MG DAILY 05/28 1000 AC 06/01 IV 0849 Review of Systems Review of Systems: No rash. No tremor. No melena. No syncope. All other systems are reviewed and are noted to be negative. 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 Home Services at Home: [employer] Smoking Status: Former Smoker (quit 20 years ago) ETOH Use: denies use Illicit Drug Use: denies illicit drug use Functional Ability ADLs Independent: dressing, eating, toileting, bathing. Ambulation: independent IADLs Independent: shopping, housework, finances, food prep, telephone, transportation , medication admin. Exam & Diagnostic Data Vital Signs and I&O Vital Signs Date Time Temp Pulse Resp B/P B/P Pulse O2 O2 Flow FiO2 Mean Ox Delivery Rate 06/01 1659 97 Nasal 3.0L Cannula 06/01 1600 977 Nasal 3.0L Cannula 06/01 1600 97.1 81 22 122/60 97 Nasal 3.0L Cannula 06/01 0830 100 Nasal 35% Cannula 06/02 799 94 Nasal 30% Cannula 06/02 799 98.4 74 24 120/70 98 Nasal 30% Cannula 06/01 0400 97 Nasal 30% Cannula 06/01 0046 96 Nasal 30% Cannula 06/01 0000 97 Nasal 30% Cannula 05/31 2313 98.0 64 16 106/56 97 Nasal 30% Cannula 05/316 96 Nasal 30% Cannula Intake & Output 06/01 1600 06/01 0800 06/01 0000 05/31 1600 05/31 0805/31 0000 Intake Total 430 240 240 600 0 800 Output Total 2000 0 0 0 Balance -1570 240 240 600 0 800 Intake, IV 30 0 0 0 Intake, Oral 400 240 240 600 0 800 Number 0 1 0 1 0 Bowel Movements Output, 1999 Dialysate Output, Urine 0 0 0 Patient 158 lb Weight Weight Bed scale Measurement Method Labs/Rubio Results: Laboratory Tests 06/01 05/31 0400 0518 Chemistry Sodium (137 - 145 mmol/L) 136 L 137 Potassium (3.5 - 5.1 mmol/L) 5.9 H 4.8 Chloride (98 - 107 mmol/L) 94 L 95 L Carbon Dioxide (22 - 30 mmol/L) 19 L 23 Anion Gap (5 - 16) 23 H 19 H BUN (9 - 20 mg/dL) 136 *H 96 H Creatinine (0.7 - 1.2 mg/dL) 8.3 *H 6.4 *H Estimated GFR (>60 ml/min) 6 L 8 L Glucose (65 - 99 mg/dL) 300 H 336 H Calcium (8.4 - 10.2 mg/dL) 6.3 L 6.6 L Phosphorus (2.5 - 4.5 mg/dL) 6.9 H 5.5 H Magnesium (1.6 - 2.3 mg/dL) 2.3 2.3 Total Bilirubin (0.2 - 1.3 mg/dL) 0.5 0.5 AST (17 - 59 U/L) 12 L 12 L ALT (21 - 72 U/L) 26 22 Albumin (3.5 - 5.0 g/dL) 3.5 3.5 Hematology CBC w Diff NO MAN DIFF REQ NO MAN DIFF REQ WBC (4.8 - 10.8 /CUMM) 8.0 7.3 RBC (4.70 - 6.10 /CUMM) 3.86 L 3.86 L Hgb (14.0 - 18.0 G/DL) 11.6 L 11.7 L Hct (42 - 52 %) 36.1 L 36.3 L MCV (80.0 - 94.0 FL) 93.6 94.0 MCH (27.0 - 31.0 PG) 30.2 30.4 MCHC (33.0 - 37.0 G/DL) 32.2 L 32.3 L RDW (11.5 - 14.5 %) 14.4 15.0 H Plt Count (130 - 400 /CUMM) 162 165 MPV (7.4 - 10.4 FL) 9.8 9.9 Gran % (42.2 - 75.2 %) 90.7 H 79.6 H Lymphocytes % (20.5 - 51.1 %) 6.5 L 6.7 L Monocytes % (1.7 - 9.3 %) 2.8 13.6 H Eosinophils % (0 - 5 %) 0 0 Basophils % (0.0 - 2.0 %) 0 0.1 Absolute Granulocytes (1.4 - 6.5 /CUMM) 7.2 H 5.8 Absolute Lymphocytes (1.2 - 3.4 /CUMM) 0.5 L 0.5 L Absolute Monocytes (0.10 - 0.60 /CUMM) 0.2 1.0 H Absolute Eosinophils (0.0 - 0.7 /CUMM) 0 0 Absolute Basophils (0.0 - 0.2 /CUMM) 0 0 Diagnostic Data EKG Results EKG tracings independently reviewed, and reveals normal sinus rhythm at 70, right axis deviation, nonspecific T-wave abnormality, QTC 488 CXR Results negative Other Results echocardiogram November 04, 2016: Normal left ventricular ejection fraction visually estimated at > 60%. Normal size left ventricle. Normal left ventricular wall thickness. Mild mitral annular calcification. Trace mitral regurgitation. Trace tricuspid regurgitation. Right ventricular systolic pressure estimated to be elevated at 69 mmHg. Trace pulmonic regurgitation. Assessment/Plan Assessment/Plan assessment: 1. Hypertension 2. COPD with acute exacerbation 3. End-stage renal disease 4. nonsustained ventricular tachycardia plan: * No treatment is needed at this time for the nonsustained ventricular tachycardia. Given the normal ejection fraction, the patient is at low risk for sudden cardiac . * Would repeat EKG given borderline prolonged QTC * Continue to monitor for additional ventricular arrhythmias Consult Acknowledgment - Thank you for your consult request.
--- NOTE | 2017-06-01 15:55 | RADIOLOGY REPORT ---
EXAMINATION: XR PORTABLE CHEST CLINICAL INFORMATION: Hypoxia. Fluid overload. COMPARISON: Chest x-ray 08/11/2017, 05/27/2017 TECHNIQUE: Portable frontal view of the chest was obtained. 3:13 PM FINDINGS: Lungs are clear. No pulmonary vascular congestion. There is no pleural effusion. The heart size is normal. The cardiac and mediastinal contours are normal. There are calcifications of the thoracic aorta. There is a vascular stent over the right upper chest. There are multilevel degenerative changes of dorsal spine. IMPRESSION: No acute abnormality of the chest.
[2017-06-01 16:00] VITALS: BP 122/60
[2017-06-02 05:31] LABS: ABSOLUTE BASOPHIL COUNT 0 /CUMM (0.0-0.2); ABSOLUTE EOSINOPHIL COUNT 0 /CUMM (0.0-0.7); ABSOLUTE LYMPH COUNT 0.8 /CUMM (1.2-3.4); ABSOLUTE MONOCYTE COUNT 0.6 /CUMM (0.10-0.60); BASOPHIL % 0.3 % (0.0-2.0); EOSINOPHIL % 0 % (0-5); GRANULOCYTE % 80.5 % (42.2-75.2); MEAN CORPUSCULAR HGB 30.1 PG (27.0-31.0); MEAN CORPUSCULAR HGB CONC 32.4 G/DL (33.0-37.0); MEAN PLATELET VOLUME 9.5 FL (7.4-10.4); PLATELET COUNT 128 /CUMM (130-400); RBC DISTRIBUTION WIDTH 14.8 % (11.5-14.5); RED BLOOD CELL CT 3.44 /CUMM (4.70-6.10); WHITE BLOOD CELL COUNT 7.4 /CUMM (4.8-10.8)
--- NOTE | 2017-06-02 07:38 | PN- Resident CRCU ---
Warner FARFAN,[facility] 06/02/17 0738: Subjective HPI/CRCU Issues: - Acute on chronic hypoxic and hypercarbic respiratory failure due to COPD/ asthma exacerbation(currently off Bipap). - ESRD on hemodialysis Tu, and Sat. - Hx of Diabetes with elevated blood sugar levels from steroid use - Persistent hyperkalemia which is improved with hemodialysis - Nonsustained V. tach - Microcytic anemia related to chronic disease and renal failure. - Hx. of hypertension. 24 Hour Events: Patient sitting comfortably in chair. Had the hemodialysis done yesterday. Patient was switched from high flow to nasal cannula yesterday with )2 sats remaining stable. Cough is still there with some phlegm production but getting better. Denies any fever/chills. Objective Vital Signs & I&O Last 8 Hrs of Vitals and I&O: Intake & Output 06/03 0800 Intake Total 50 Output Total 0 Balance 50 Intake, IV 0 Intake, Oral 50 Number 0 Bowel Movements Output, Urine 0 Exam General Appearance: well developed/nourished, no apparent distress, alert, awake , comfortable Head: atraumatic, normal appearance Respiratory: chest non-tender, rhonchi, wheezing Cardiovascular: regular rate/rhythm Gastrointestinal: normal bowel sounds, soft, non-tender Extremities: no edema Current Medications: Current Medications Sig/Rina Start time Last Medication Dose Route Stop Time Status Admin Acetylcysteine 2 ML BID 06/01 1145 AC 06/02 INH 0840 Albuterol Sulfate 3 ML EVERY 4 HRS/AWAKE 05/27 2000 AC 06/02 INH 1152 Albuterol Sulfate 2 PUF Q4-6 PRN PRN 05/27 1545 AC INH Amlodipine Besylate 5 MG DAILY 05/27 1830 AC 06/02 PO 1044 Budesonide/ 2 PUF BID 05/27 2200 AC 06/02 Formoterol Fumarate INH 1046 Calcitriol 2 MCG TUES THURS SAT 06/03 1000 AC IV Calcitriol 1 MCG TUES THURS SAT 06/01 1000 DC 06/01 IV 1100 Calcium Acetate 2,001 MG TIDAC 06/01 1200 AC 06/02 PO 1123 Epoetin Mohamud 1,000 UNIT TuThSa PRN 05/29 1645 AC 06/01 IV 1100 Heparin Sodium 5,000 UNIT Q8 05/27 1400 AC 06/02 (Porcine) SC 0532 Insulin Aspart 0 TIDAC 06/02 0800 AC 06/02 SC 1135 Insulin Aspart 4 UNITS ONCE ONE 06/02 0115 DC 06/02 SC 06/02 0116 0122 Insulin Aspart 4 UNITS ONCE ONE 06/01 2145 DC 06/01 SC 06/01 2146 2151 Insulin Aspart 0 TIDAC 05/27 1830 DC 06/01 SC 1711 Insulin Detemir 4 UNITS DAILY 05/28 1000 AC 06/02 SC 1123 Levofloxacin 500 MG Q48H 05/31 1000 AC 06/02 PO 1044 Lisinopril 5 MG DAILY 05/28 1000 AC 06/02 PO 1044 Methylprednisolone 60 MG DAILY 05/31 1000 DC 06/02 IV 1051 Midodrine 5 MG SEE ADMIN CRITERIA.. 05/27 1545 AC 05/29 PO 1613 Pantoprazole Sodium 40 MG DAILY 05/28 1000 AC 06/02 IV 1044 Prednisone 40 MG DAILY 06/02 1001 AC 06/02 PO 1123 Prochlorperazine 2.5 MG ONCE ONE 06/02 1130 DC 06/02 IV 06/02 1131 1135 Trimethobenzamide HCl 200 MG ONCE ONE 06/02 1115 CAN IM 06/02 1116 Impression/Plan Impression/Problem List Impression: Patient is an 86-year-old male with past medical history of insulin-dependent diabetes mellitus, end-stage renal disease on dialysis every Wednesday, , Wednesday with an AV fistula in his right arm, COPD on 2 L oxygen at home, asthma , hypertension who presented this admission with worsening dyspnea. Patient was admitted to the ICU for management of the following: Respiratory: Acute Hypoxic and Hypercarbic Respiratory Distress secondary to Acute COPD Exacerbation Patient's ABG showed a mixed respiratory acidosis pictures with metabolic acidosis. Chest xray shows no focal consolidation or signs of fluid overload. Patient was tranisitioned from BIPAP --> to high flow oxygen --> to nasal canula today. Patient's respiratory status has improved today. 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 -Continues to be on 3 L of oxygen by nasal cannula, saturating 97%. - TRC/ Neb treatments q4h and start the patient on Mucomyst nebs - Continue Levaquin - Symbicort -Change IV Solu-Medrol to prednisone 40 mg by mouth today. Infectious: COPD Exacerbation - See above Cardiac: 1. History of HTN: - continue to monitor bp. Reported bp by dialysis on day of admission was systolic of 109. Patient's bp during his admission remains elevated. Patient had and ECHO of LVEF >60% with right ventricular systolic pressure >69 mmHg. - continue lisinopril, amlodipine 2. Nonsustained V. tach - No treatment needed at this time - Continue to monitor on telemetry. - Appreciate cardiology recommendations. Heme: Anemia Likely secondary to ESRD. Metabolic: 1. Diabetes Mellitus -Blood sugars ranging from 146-444 for the past 24 hours, likely secondary to IV Solu-Medrol. -Insulin SS, Accuchecks -Levemir 4 units daily 2. Hyperkalemia -Patient has ESRD. Patient received dialysis today. - continue to monitor K, improved from 5.9 to 3.9. - continue to monitor on tele Ailementary: Consistent carbohydrate diet with renal restrictions Neurology: None Nephrology: ESRD on HD Wednesday, , Wednesday. - dialysis today - continue to monitor I/O. Patient had a negative fluid balance of almost 1 L yesterday. - continue to monitor electrolytes - Lasix was DC'd as the patient has no urine output. - nephrology consulted. appreciate recommendations - Continue calcium acetate 2001mg with meals - Calcitriol increased to 2 mcg for hypocalcemia - to be given with hemodialysis. DVT PPx: Heparin SQ and ALPS GI PPx: IV Protonix Patient is full code Problem List: 1. Hyperglycemia 2. ESRD on dialysis 3. COPD with exacerbation Pain Ratin Pain Location: NA Tomorrow's Labs & Rationales: CBC BEP Plan DVT/Prophylaxis: mechanical, pharmacological Anish Lock MD 06/02/17 1114: Attending MD Review Statement Attending Sign Off Attending Cosign Statement: I have: examined this patient, reviewed avalbl EMR data, personally reviewd images, discussd w/resident/PA/WHITE KID BUFFER, discussed mgmt plan w/corie, discussed mgmt plan w/CM, discussed mgmt plan w/pt, agreed w/resident/PA/WHITE KID BUFFER, amended to note. Other Findings: Anish Bates M.D. have examined this patient, reviewed available EMR data, personally reviewed images, discussed with resident/PA/WHITE KID BUFFER, discussed management plan with housestaff and nursing staff, discussed managment plan all of healthcare providers, discussed management plan with patient and/or family, agreed with resident/PA/WHITE KID BUFFER. The past history and parts of the chart have been autopopulated. Impression 86 year old man * acute hypoxemic respiratory failure * ESRD on HD Plan -on nasal cannula -taper steroids - begin po prednisone -trc/nebs -renal consultation appreciated -HD per nephrology -cardiology consultation for ventricular arrhythmia -complete course of abx telemetry hold
[2017-06-02 09:07] VITALS: BP 110/60
--- NOTE | 2017-06-02 10:42 | PN- Nephrology ---
Assessment/Plan Nephrology Assessment: 1. ESRD: due to DM & HTN; no HD need today 2. Resp failure: due to severe chronic lung dx; continue steroids, bronchodilators, & antibiotics per pulm. 3. Hypocalcemia: mid 7s corrected for hypoalbuminemia; w/o sx. Continue hi Ca dialysate --> 3 mmole/L, Ca acetate binder w meals; increase IV calcitriol w HD Suggestion: increase IV calcitriol 2 mcg w HD tiw HD tomorrow Subjective Subjective: Feeling better SOB improved - hi flow O2 d/c Cough better Objective Vital Signs and I&Os Vital Signs Date Time Temp Pulse Resp B/P B/P Pulse O2 O2 Flow FiO2 Mean Ox Delivery Rate 06/02 906 96 Nasal 3.0L Cannula 06/02 09 97.9 68 18 110/60 96 Nasal 3.0L Cannula 06/02 0845 95 Nasal 2.0L Cannula 06/02 0000 Nasal 3.0L Cannula 06/01 1659 97 Nasal 3.0L Cannula 06/01 1600 977 Nasal 3.0L Cannula 06/01 1600 97.1 81 22 122/60 97 Nasal 3.0L Cannula Intake & Output 06/02 1600 06/02 0400 06/01 1600 06/01 0400 05/31 1600 05/31 0400 Intake Total 240 180 670 240 600 800 Output Total 2000 0 0 Balance 240 180 -1330 240 600 800 Intake, IV 30 0 0 Intake, Oral 240 180 640 240 600 800 Number 1 1 0 Bowel Movements Output, 2000 Dialysate Output, Urine 0 0 Patient 158 lb Weight Weight Bed scale Measurement Method Physical Exam General Appearance: well developed/nourished, no apparent distress, alert Head: atraumatic, normal appearance Neck: normal inspection Respiratory: quiet respiration, rhonchi, wheezing Cardiovascular: regular rate/rhythm Abdomen: soft, non-tender, no organomegaly Extremities: no edema, + bruit ADRIENNE AVF Neurologic/Psychiatric: awake, alert Skin: intact Lymphatic: no anterior cervical whitley Current Medications: Current Medications Sig/Rina Start time Last Medication Dose Route Stop Time Status Admin Acetylcysteine 2 ML BID 06/01 1145 AC 06/02 INH 0840 Acetylcysteine 2 ML ONCE ONE 06/01 1115 CAN INH 06/01 1116 Acetylcysteine 2 ML ONCE ONE 06/01 1045 CAN INH 06/01 1046 Albuterol Sulfate 3 ML EVERY 4 HRS/AWAKE 05/28 1999 AC 06/02 INH 0840 Albuterol Sulfate 2 PUF Q4-6 PRN PRN 05/27 1545 AC INH Amlodipine Besylate 5 MG DAILY 05/27 1830 AC 06/01 PO 0848 Budesonide/ 2 PUF BID 05/27 2200 AC 06/01 Formoterol Fumarate INH 2151 Calcitriol 1 MCG TUES THURS SAT 06/01 1000 AC 06/01 IV 1100 Calcium Acetate 2,001 MG TIDAC 06/01 1200 AC 06/02 PO 0844 Epoetin Mohamud 1,000 UNIT TuThSa PRN 05/29 1645 AC 06/01 IV 1100 Furosemide 80 MG DAILY 05/28 1000 DC 05/29 PO 0844 Heparin Sodium 5,000 UNIT Q8 05/27 1400 AC 06/02 (Porcine) SC 0532 Insulin Aspart 0 TIDAC 06/02 0800 AC SC Insulin Aspart 4 UNITS ONCE ONE 06/02 0115 DC 06/02 SC 06/02 0116 0122 Insulin Aspart 4 UNITS ONCE ONE 06/01 2145 DC 06/01 NV 06/01 2146 2151 Insulin Aspart 0 TIDAC 05/27 1830 DC 06/01 SC 1711 Insulin Detemir 4 UNITS DAILY 05/28 1000 AC 06/01 SC 0902 Levofloxacin 500 MG Q48H 05/31 1000 AC 05/31 PO 1423 Lisinopril 5 MG DAILY 05/28 1000 AC 06/01 PO 0848 Methylprednisolone 60 MG DAILY 05/31 1000 DC 06/01 IV 0849 Midodrine 5 MG SEE ADMIN CRITERIA.. 05/27 1545 AC 05/29 PO 1613 Pantoprazole Sodium 40 MG DAILY 05/28 1000 AC 06/01 IV 0849 Prednisone 40 MG DAILY 06/02 1001 AC PO Results Pertinent Lab Results: Laboratory Tests 06/02 06/01 0444 0400 Chemistry Sodium (137 - 145 mmol/L) 141 136 L Potassium (3.5 - 5.1 mmol/L) 3.9 5.9 H Chloride (98 - 107 mmol/L) 102 94 L Carbon Dioxide (22 - 30 mmol/L) 24 19 L Anion Gap (5 - 16) 14 23 H BUN (9 - 20 mg/dL) 73 H 136 *H Creatinine (0.7 - 1.2 mg/dL) 4.5 H 8.3 *H Estimated GFR (>60 ml/min) 12 L 6 L Glucose (65 - 99 mg/dL) 116 H 300 H Calcium (8.4 - 10.2 mg/dL) 6.3 L 6.3 L Phosphorus (2.5 - 4.5 mg/dL) 3.7 6.9 H Magnesium (1.6 - 2.3 mg/dL) 2.0 2.3 Total Bilirubin (0.2 - 1.3 mg/dL) 0.4 0.5 AST (17 - 59 U/L) 10 L 12 L ALT (21 - 72 U/L) 23 26 Albumin (3.5 - 5.0 g/dL) 2.6 L 3.5 Hematology CBC w Diff NO MAN DIFF REQ NO MAN DIFF REQ WBC (4.8 - 10.8 /CUMM) 7.4 8.0 RBC (4.70 - 6.10 /CUMM) 3.44 L 3.86 L Hgb (14.0 - 18.0 G/DL) 10.4 L 11.6 L Hct (42 - 52 %) 32.0 L 36.1 L MCV (80.0 - 94.0 FL) 93.0 93.6 MCH (27.0 - 31.0 PG) 30.1 30.2 MCHC (33.0 - 37.0 G/DL) 32.4 L 32.2 L RDW (11.5 - 14.5 %) 14.8 H 14.4 Plt Count (130 - 400 /CUMM) 128 L 162 MPV (7.4 - 10.4 FL) 9.5 9.8 Gran % (42.2 - 75.2 %) 80.5 H 90.7 H Lymphocytes % (20.5 - 51.1 %) 10.8 L 6.5 L Monocytes % (1.7 - 9.3 %) 8.4 2.8 Eosinophils % (0 - 5 %) 0 0 Basophils % (0.0 - 2.0 %) 0.3 0 Absolute Granulocytes (1.4 - 6.5 /CUMM) 6.0 7.2 H Absolute Lymphocytes (1.2 - 3.4 /CUMM) 0.8 L 0.5 L Absolute Monocytes (0.10 - 0.60 /CUMM) 0.6 0.2 Absolute Eosinophils (0.0 - 0.7 /CUMM) 0 0 Absolute Basophils (0.0 - 0.2 /CUMM) 0 0 / 0518 Chemistry Sodium (137 - 145 mmol/L) 137 Potassium (3.5 - 5.1 mmol/L) 4.8 Chloride (98 - 107 mmol/L) 95 L Carbon Dioxide (22 - 30 mmol/L) 23 Anion Gap (5 - 16) 19 H BUN (9 - 20 mg/dL) 96 H Creatinine (0.7 - 1.2 mg/dL) 6.4 *H Estimated GFR (>60 ml/min) 8 L Glucose (65 - 99 mg/dL) 336 H Calcium (8.4 - 10.2 mg/dL) 6.6 L Phosphorus (2.5 - 4.5 mg/dL) 5.5 H Magnesium (1.6 - 2.3 mg/dL) 2.3 Total Bilirubin (0.2 - 1.3 mg/dL) 0.5 AST (17 - 59 U/L) 12 L ALT (21 - 72 U/L) 22 Albumin (3.5 - 5.0 g/dL) 3.5 Hematology CBC w Diff NO MAN DIFF REQ WBC (4.8 - 10.8 /CUMM) 7.3 RBC (4.70 - 6.10 /CUMM) 3.86 L Hgb (14.0 - 18.0 G/DL) 11.7 L Hct (42 - 52 %) 36.3 L MCV (80.0 - 94.0 FL) 94.0 MCH (27.0 - 31.0 PG) 30.4 MCHC (33.0 - 37.0 G/DL) 32.3 L RDW (11.5 - 14.5 %) 15.0 H Plt Count (130 - 400 /CUMM) 165 MPV (7.4 - 10.4 FL) 9.9 Gran % (42.2 - 75.2 %) 79.6 H Lymphocytes % (20.5 - 51.1 %) 6.7 L Monocytes % (1.7 - 9.3 %) 13.6 H Eosinophils % (0 - 5 %) 0 Basophils % (0.0 - 2.0 %) 0.1 Absolute Granulocytes (1.4 - 6.5 /CUMM) 5.8 Absolute Lymphocytes (1.2 - 3.4 /CUMM) 0.5 L Absolute Monocytes (0.10 - 0.60 /CUMM) 1.0 H Absolute Eosinophils (0.0 - 0.7 /CUMM) 0 Absolute Basophils (0.0 - 0.2 /CUMM) 0 Imaging/Other Studies: CXR: Lungs are clear. No pulmonary vascular congestion. There is no pleural effusion. The heart size is normal. The cardiac and mediastinal contours are normal. There are calcifications of the thoracic aorta. There is a vascular stent over the right upper chest. There are multilevel degenerative changes of dorsal spine.
--- NOTE | 2017-06-02 12:41 | PN- Cardiology ---
Subjective Subjective: the patient is stable. Sitting in bedside chair. Claims to be feeling better. Improved respiratory status but still with significant wheezing and rhonchi. No further arrhythmias noted. Objective Vital Signs and I&Os Vital Signs Date Time Temp Pulse Resp B/P B/P Pulse O2 O2 Flow FiO2 Mean Ox Delivery Rate 06/02 1044 68 110/50 06/02 1044 72 110/50 06/02 0907 96 Nasal 3.0L Cannula 06/02 0907 97.9 68 18 110/60 96 Nasal 3.0L Cannula 06/02 0845 95 Nasal 2.0L Cannula 06/02 0000 Nasal 3.0L Cannula 06/01 1659 97 Nasal 3.0L Cannula 06/01 1600 977 Nasal 3.0L Cannula 06/01 1600 97.1 81 22 122/60 97 Nasal 3.0L Cannula Intake & Output 06/02 1600 06/02 0800 06/02 0000 06/01 1600 06/01 0800 06/01 0000 Intake Total 240 180 430 240 240 Output Total 1999 Balance 240 180 -1570 240 240 Intake, IV 30 Intake, Oral 240 180 400 240 240 Number 0 1 Bowel Movements Output, 1999 Dialysate Physical Exam: General Appearance: no apparent distress, alert, awake, comfortable Respiratory: bilateral rhonchi, rales, diffuse bilateral expiratory wheeze Cardiovascular: regular rate/rhythm, S1, S2 Gastrointestinal: normal bowel sounds, soft, non-tender Extremities: no edema Cranial Nerves: normal hearing, normal speech, PERRL Current Medications: Current Medications Sig/Rina Start time Last Medication Dose Route Stop Time Status Admin Acetylcysteine 2 ML BID 06/01 1145 AC 06/02 INH 0840 Albuterol Sulfate 3 ML EVERY 4 HRS/AWAKE 05/28 1999 AC 06/02 INH 1152 Albuterol Sulfate 2 PUF Q4-6 PRN PRN 05/27 1545 AC INH Amlodipine Besylate 5 MG DAILY 05/27 1830 AC 06/02 PO 1044 Budesonide/ 2 PUF BID 05/27 220 AC 06/02 Formoterol Fumarate INH 1046 Calcitriol 2 MCG TUES THURS SAT 06/03 1000 AC IV Calcitriol 1 MCG TUES THURS SAT 06/01 1000 DC 06/01 IV 1100 Calcium Acetate 2,001 MG TIDAC 06/01 1200 AC 06/02 PO 1123 Epoetin Mohamud 1,000 UNIT TuThSa PRN 05/29 1645 AC 06/01 IV 1100 Heparin Sodium 5,000 UNIT Q8 05/27 1400 AC 06/02 (Porcine) SC 0532 Insulin Aspart 0 TIDAC 06/02 0800 AC 06/02 SC 1135 Insulin Aspart 4 UNITS ONCE ONE 06/02 0115 DC 06/02 SC 06/02 0116 0122 Insulin Aspart 4 UNITS ONCE ONE 06/01 2145 DC 06/01 SC 06/01 2146 2151 Insulin Aspart 0 TIDAC 05/27 1830 DC 06/01 SC 1711 Insulin Detemir 4 UNITS DAILY 05/28 1000 AC 06/02 SC 1123 Levofloxacin 500 MG Q48H 05/31 1000 AC 06/02 PO 1044 Lisinopril 5 MG DAILY 05/28 1000 AC 06/02 PO 1044 Methylprednisolone 60 MG DAILY 05/31 1000 DC 06/02 IV 1051 Midodrine 5 MG SEE ADMIN CRITERIA.. 05/27 1545 AC 05/29 PO 1613 Pantoprazole Sodium 40 MG DAILY 05/28 1000 AC 06/02 IV 1044 Prednisone 40 MG DAILY 06/02 1001 AC 06/02 PO 1123 Prochlorperazine 2.5 MG ONCE ONE 06/02 1130 DC 06/02 IV 06/02 1131 1135 Trimethobenzamide HCl 200 MG ONCE ONE 06/02 1115 CAN IM 06/02 1116 Results Last 48 Hrs of Labs/Mics: Laboratory Tests 06/02/17 0444: Anion Gap 14, Estimated GFR 12 L, Glucose 116 H, Calcium 6.3 L, Phosphorus 3.7, Magnesium 2.0, Total Bilirubin 0.4, AST 10 L, ALT 23, Albumin 2.6 L, CBC w Diff NO MAN DIFF REQ, RBC 3.44 L, MCV 93.0, MCH 30.1, MCHC 32.4 L, RDW 14.8 H, MPV 9.5, Gran % 80.5 H, Lymphocytes % 10.8 L, Monocytes % 8.4, Eosinophils % 0, Basophils % 0.3, Absolute Granulocytes 6.0, Absolute Lymphocytes 0.8 L, Absolute Monocytes 0.6, Absolute Eosinophils 0, Absolute Basophils 0 06/01/17 0400: Anion Gap 23 H, Estimated GFR 6 L, Glucose 300 H, Calcium 6.3 L, Phosphorus 6.9 H, Magnesium 2.3, Total Bilirubin 0.5, AST 12 L, ALT 26, Albumin 3.5, CBC w Diff NO MAN DIFF REQ, RBC 3.86 L, MCV 93.6, MCH 30.2, MCHC 32.2 L, RDW 14.4, MPV 9.8, Gran % 90.7 H, Lymphocytes % 6.5 L, Monocytes % 2.8, Eosinophils % 0, Basophils % 0, Absolute Granulocytes 7.2 H, Absolute Lymphocytes 0.5 L, Absolute Monocytes 0.2, Absolute Eosinophils 0, Absolute Basophils 0 Assessment/Plan Assessment/Plan Assessment: 1. Nonsustained ventricular tachycardia-no evidence of any significant arrhythmias over the last 24 hours 2. 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 History of hypertension 4. hyperkalemia-improved 5. End-stage renal disease Recommendations: -Monitor on telemetry for another 24 hours -Continue aggressive respiratory care -Follow metabolic parameters in a.m. -No further evaluation required at the present time. Continue telemetry? Yes
[2017-06-02 16:00] VITALS: BP 122/40
[2017-06-03] VITALS: BP 120/50
--- NOTE | 2017-06-03 07:33 | PN- Resident CRCU ---
War[facility] FARFAN,[facility] 06/03/17 0733: Subjective HPI/CRCU Issues: - Acute on chronic hypoxic and hypercarbic respiratory failure due to COPD/ asthma exacerbation(currently off Bipap). - ESRD on hemodialysis , and Wed. - Hx of Diabetes with elevated blood sugar levels from steroid use - Persistent hyperkalemia which is improved with hemodialysis - Nonsustained V. tach - Microcytic anemia related to chronic disease and renal failure. - Hx. of hypertension. 24 Hour Events: Patient resting comfortably in bed, with no shortness of breath when lying down and also the cough has improved significantly though have more wheezing on auscultation compared to yesterday. Patient getting ready for the dialysis. Objective Vital Signs & I&O Last 8 Hrs of Vitals and I&O: Intake & Output 06/03 1600 Intake Total Output Total Balance Patient 157 lb Weight Weight Bed scale Measurement Method Exam General Appearance: no apparent distress, alert, awake Head: atraumatic, normal appearance Respiratory: chest non-tender, rhonchi, wheezing Cardiovascular: regular rate/rhythm Gastrointestinal: normal bowel sounds, soft, non-tender Extremities: normal inspection, no edema Cranial Nerves: normal hearing, normal speech, PERRL Current Medications: Current Medications Sig/Rina Start time Last Medication Dose Route Stop Time Status Admin Acetaminophen 650 MG ONCE ONE 06/03 1300 DC 06/03 PO 06/03 1301 1255 Acetylcysteine 2 ML BID 06/01 1145 AC 06/03 INH 0843 Albuterol Sulfate 3 ML EVERY 4 HRS/AWAKE 05/27 2000 AC 06/03 INH 1157 Albuterol Sulfate 2 PUF Q4-6 PRN PRN 05/27 1545 AC INH Amlodipine Besylate 5 MG DAILY 05/27 1830 AC 06/02 PO 1044 Budesonide/ 2 PUF BID 05/27 2200 AC 06/03 Formoterol Fumarate INH 1028 Calcitriol 2 MCG SAT 06/03 1000 AC IV Calcium Acetate 2,001 MG TIDAC 06/01 1200 AC 06/02 PO 1649 Epoetin Mohamud 1,000 UNIT TuThSa PRN 05/29 1645 AC 06/01 IV 1100 Heparin Sodium 5,000 UNIT Q8 05/27 1400 AC 06/03 (Porcine) SC 0630 Insulin Aspart 0 TIDAC 06/02 0800 AC 06/03 SC 1026 Insulin Detemir 4 UNITS DAILY 05/28 1000 AC 06/03 SC 1026 Levofloxacin 500 MG Q48H 05/31 1000 AC 06/02 PO 1044 Lisinopril 5 MG DAILY 05/28 1000 AC 06/02 PO 1044 Melatonin 3 MG ONCE ONE 06/02 2300 DC 06/02 PO 06/02 2301 2256 Midodrine 5 MG SEE ADMIN CRITERIA.. 05/27 1545 AC 05/29 PO 1613 Pantoprazole Sodium 40 MG DAILY 05/28 1000 AC 06/03 IV 1025 Prednisone 40 MG DAILY 06/02 1001 AC 06/03 PO 1027 Impression/Plan Impression/Problem List Impression: Patient is an 86-year-old male with past medical history of insulin-dependent diabetes mellitus, end-stage renal disease on dialysis every Wednesday, , Wednesday with an AV fistula in his right arm, COPD on 2 L oxygen at home, asthma , hypertension who presented this admission with worsening dyspnea. Patient was admitted to the ICU for management of the following: Respiratory: Acute Hypoxic and Hypercarbic Respiratory Distress secondary to Acute COPD Exacerbation Patient's ABG showed a mixed respiratory acidosis pictures with metabolic acidosis. Chest xray shows no focal consolidation or signs of fluid overload. Patient was tranisitioned from BIPAP --> to high flow oxygen --> to nasal canula today. Patient's respiratory status has improving. 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 - Continues to be on 3 L of oxygen by nasal cannula, saturating 93%. - TRC/ Neb treatments q4h and continue Mucomyst nebs - Continue Levaquin - Symbicort - Continue prednisone 40 mg by mouth, decrease to 30 mg tomorrow. Infectious: COPD Exacerbation - See above Cardiac: 1. History of HTN: - continue to monitor bp. Reported bp by dialysis on day of admission was systolic of 109. Patient's bp during his admission remains elevated. Patient had and ECHO of LVEF >60% with right ventricular systolic pressure >69 mmHg. - continue lisinopril, amlodipine 2. Nonsustained V. tach - No treatment needed at this time - Continue to monitor on telemetry. - Appreciate cardiology recommendations. Heme: Anemia Likely secondary to ESRD. Metabolic: 1. Diabetes Mellitus -Blood sugars ranging from 118-385 for the past 24 hours, likely secondary to Steroid Use. -Insulin SS, Accuchecks -Levemir 4 units daily 2. Hyperkalemia - Patient has ESRD. Received dialysis today. - Continue to monitor K. - Continue to monitor on tele Ailementary: Consistent carbohydrate diet with renal restrictions Neurology: None Nephrology: ESRD on HD Wednesday, , Wednesday. - dialysis today - continue to monitor I/O. - continue to monitor electrolytes - Lasix was DC'd as the patient has no urine output. - nephrology consulted. appreciate recommendations - Continue calcium acetate 2001mg with meals - Calcitriol increased to 2 mcg for hypocalcemia - to be given with hemodialysis. DVT PPx: Heparin SQ and ALPS GI PPx: IV Protonix Patient is full code Problem List: 1. Hyperglycemia 2. COPD with exacerbation 3. Hyperkalemia, diminished renal excretion Pain Ratin Pain Location: NA Pain Goal: Remain pain free Pain Plan: NA Tomorrow's Labs & Rationales: CBC ICU Bundle Plan DVT/Prophylaxis: mechanical, pharmacological Anish Lock MD 06/03/17 1123: Attending MD Review Statement Attending Sign Off Attending Cosign Statement: I have: examined this patient, reviewed avalbl EMR data, personally reviewd images, discussd w/resident/PA/AUTOMATIC DRY STARCH OPERATOR, discussed mgmt plan w/corie, discussed mgmt plan w/CM, discussed mgmt plan w/pt, agreed w/resident/PA/AUTOMATIC DRY STARCH OPERATOR, amended to note. Other Findings: Anish Bates M.D. have examined this patient, reviewed available EMR data, personally reviewed images, discussed with resident/PA/AUTOMATIC DRY STARCH OPERATOR, discussed management plan with housestaff and nursing staff, discussed managment plan all of healthcare providers, discussed management plan with patient and/or family, agreed with resident/PA/AUTOMATIC DRY STARCH OPERATOR. The past history and parts of the chart have been autopopulated. Impression 86 year old man * acute hypoxemic respiratory failure * ESRD on HD Plan -on nasal cannula -taper po prednisone -trc/nebs -renal consultation appreciated -HD per nephrology -cardiology consultation appreciated telemetry hold
[2017-06-03 07:47] LABS: ABSOLUTE BASOPHIL COUNT 0 /CUMM (0.0-0.2); ABSOLUTE EOSINOPHIL COUNT 0 /CUMM (0.0-0.7); ABSOLUTE GRANULOCYTE CT 6.8 /CUMM (1.4-6.5); ABSOLUTE LYMPH COUNT 0.7 /CUMM (1.2-3.4); ABSOLUTE MONOCYTE COUNT 0.5 /CUMM (0.10-0.60); BASOPHIL % 0 % (0.0-2.0); EOSINOPHIL % 0.1 % (0-5); HEMATOCRIT 34.4 % (42-52); MEAN CORPUSCULAR HGB 30.2 PG (27.0-31.0); MEAN CORPUSCULAR HGB CONC 32.3 G/DL (33.0-37.0); MEAN CORPUSCULAR VOLUME 93.5 FL (80.0-94.0); PLATELET COUNT 140 /CUMM (130-400); RBC DISTRIBUTION WIDTH 14.9 % (11.5-14.5); RED BLOOD CELL CT 3.68 /CUMM (4.70-6.10)
[2017-06-03 08:00] VITALS: BP 130/50
[2017-06-03 08:35] LABS: GRANULOCYTE % 85.1 % (42.2-75.2)
--- NOTE | 2017-06-03 09:13 | PN- Nephrology ---
Assessment/Plan Nephrology Assessment: 1. ESRD: due to DM & HTN; HD in progress - UF 1 liter as BP allows 2. Resp failure: due to severe chronic lung dx; continue steroids, bronchodilators, & antibiotics per pulm. 3. Hypocalcemia: on hi Ca dialysate (3 mmole/L), calcitriol IV, & po Ca acetate; improving Suggestion: next HD Sat OK for floor from renal perspective Subjective Subjective: Still SOB On low flow O2 Objective Vital Signs and I&Os Vital Signs Date Time Temp Pulse Resp B/P B/P Pulse O2 O2 Flow FiO2 Mean Ox Delivery Rate 06/03 0846 95 Nasal 3.0L Cannula 06/03 0000 93 Nasal 3.0L Cannula 06/03 0000 98.0 74 14 120/50 93 Nasal 3.0L Cannula 06/02 1700 97 Nasal 2.0L Cannula 06/02 1600 98.0 75 18 122/40 92 Nasal 3.0L Cannula 06/02 1044 68 110/50 06/02 1044 72 110/50 Intake & Output 06/03 1600 06/03 0400 06/02 1600 06/02 0400 06/01 1600 06/01 0400 Intake Total 50 240 1200 180 670 240 Output Total 0 0 0 1999 Balance 50 240 1200 180 -1330 240 Intake, IV 0 0 30 Intake, Oral 50 240 1200 180 640 240 Number 0 1 1 Bowel Movements Output, 1999 Dialysate Output, Urine 0 0 0 Physical Exam General Appearance: no apparent distress, alert Head: atraumatic, normal appearance Ears, Nose, Throat: normal ENT inspection Neck: normal inspection Respiratory: rhonchi, wheezing Cardiovascular: regular rate/rhythm Abdomen: soft, non-tender, no organomegaly Extremities: no edema, + bruit R arm AVF Neurologic/Psychiatric: awake, alert Skin: intact Current Medications: Current Medications Sig/Rina Start time Last Medication Dose Route Stop Time Status Admin Acetylcysteine 2 ML BID 06/01 1145 AC 06/03 INH 0843 Albuterol Sulfate 3 ML EVERY 4 HRS/AWAKE 05/28 1999 AC 06/03 INH 0844 Albuterol Sulfate 2 PUF Q4-6 PRN PRN 05/27 1545 AC INH Amlodipine Besylate 5 MG DAILY 05/27 1830 AC 06/02 PO 1044 Budesonide/ 2 PUF BID 05/27 2199 AC 06/02 Formoterol Fumarate INH 2114 Calcitriol 2 MCG TUES THURS SAT 06/03 1000 AC IV Calcitriol 1 MCG TUES THURS SAT 06/01 1000 DC 06/01 IV 1100 Calcium Acetate 2,001 MG TIDAC 06/01 1200 AC 06/02 PO 1649 Epoetin Mohamud 1,000 UNIT TuThSa PRN 05/29 1645 AC 06/01 IV 1100 Heparin Sodium 5,000 UNIT Q8 05/27 1400 AC 06/03 (Porcine) SC 0630 Insulin Aspart 0 TIDAC 06/02 0800 AC 06/02 SC 1649 Insulin Detemir 4 UNITS DAILY 05/28 1000 AC 06/02 SC 1123 Levofloxacin 500 MG Q48H 05/31 1000 AC 06/02 PO 1044 Lisinopril 5 MG DAILY 05/28 1000 AC 06/02 PO 1044 Melatonin 3 MG ONCE ONE 06/02 2300 DC 06/02 PO 06/02 2301 2256 Methylprednisolone 60 MG DAILY 05/31 1000 DC 06/02 IV 1051 Midodrine 5 MG SEE ADMIN CRITERIA.. 05/27 1545 AC 05/29 PO 1613 Pantoprazole Sodium 40 MG DAILY 05/28 1000 AC 06/02 IV 1044 Prednisone 40 MG DAILY 06/02 1001 AC 06/02 PO 1123 Prochlorperazine 2.5 MG ONCE ONE 06/02 1130 DC 06/02 IV 06/02 1131 1135 Trimethobenzamide HCl 200 MG ONCE ONE 06/02 1115 CAN IM 06/02 1116 Results Pertinent Lab Results: Laboratory Tests 06/03 06/02 0645 0444 Chemistry Sodium (137 - 145 mmol/L) 135 L 141 Potassium (3.5 - 5.1 mmol/L) 5.6 H 3.9 Chloride (98 - 107 mmol/L) 93 L 102 Carbon Dioxide (22 - 30 mmol/L) 24 24 Anion Gap (5 - 16) 17 H 14 BUN (9 - 20 mg/dL) 112 *H 73 H Creatinine (0.7 - 1.2 mg/dL) 8.0 *H 4.5 H Estimated GFR (>60 ml/min) 6 L 12 L Glucose (65 - 99 mg/dL) 243 H 116 H Calcium (8.4 - 10.2 mg/dL) 7.5 L 6.3 L Phosphorus (2.5 - 4.5 mg/dL) 5.6 H 3.7 Magnesium (1.6 - 2.3 mg/dL) 2.4 H 2.0 Total Bilirubin (0.2 - 1.3 mg/dL) 0.5 0.4 AST (17 - 59 U/L) 11 L 10 L ALT (21 - 72 U/L) 25 23 Albumin (3.5 - 5.0 g/dL) 3.2 L 2.6 L Hematology CBC w Diff NO MAN DIFF REQ NO MAN DIFF REQ WBC (4.8 - 10.8 /CUMM) 8.0 7.4 RBC (4.70 - 6.10 /CUMM) 3.68 L 3.44 L Hgb (14.0 - 18.0 G/DL) 11.1 L 10.4 L Hct (42 - 52 %) 34.4 L 32.0 L MCV (80.0 - 94.0 FL) 93.5 93.0 MCH (27.0 - 31.0 PG) 30.2 30.1 MCHC (33.0 - 37.0 G/DL) 32.3 L 32.4 L RDW (11.5 - 14.5 %) 14.9 H 14.8 H Plt Count (130 - 400 /CUMM) 140 128 L MPV (7.4 - 10.4 FL) 10.0 9.5 Gran % (42.2 - 75.2 %) 85.1 H 80.5 H Lymphocytes % (20.5 - 51.1 %) 8.4 L 10.8 L Monocytes % (1.7 - 9.3 %) 6.4 8.4 Eosinophils % (0 - 5 %) 0.1 0 Basophils % (0.0 - 2.0 %) 0 0.3 Absolute Granulocytes (1.4 - 6.5 /CUMM) 6.8 H 6.0 Absolute Lymphocytes (1.2 - 3.4 /CUMM) 0.7 L 0.8 L Absolute Monocytes (0.10 - 0.60 /CUMM) 0.5 0.6 Absolute Eosinophils (0.0 - 0.7 /CUMM) 0 0 Absolute Basophils (0.0 - 0.2 /CUMM) 0 0 04/10 0400 Chemistry Sodium (137 - 145 mmol/L) 136 L Potassium (3.5 - 5.1 mmol/L) 5.9 H Chloride (98 - 107 mmol/L) 94 L Carbon Dioxide (22 - 30 mmol/L) 19 L Anion Gap (5 - 16) 23 H BUN (9 - 20 mg/dL) 136 *H Creatinine (0.7 - 1.2 mg/dL) 8.3 *H Estimated GFR (>60 ml/min) 6 L Glucose (65 - 99 mg/dL) 300 H Calcium (8.4 - 10.2 mg/dL) 6.3 L Phosphorus (2.5 - 4.5 mg/dL) 6.9 H Magnesium (1.6 - 2.3 mg/dL) 2.3 Total Bilirubin (0.2 - 1.3 mg/dL) 0.5 AST (17 - 59 U/L) 12 L ALT (21 - 72 U/L) 26 Albumin (3.5 - 5.0 g/dL) 3.5 Hematology CBC w Diff NO MAN DIFF REQ WBC (4.8 - 10.8 /CUMM) 8.0 RBC (4.70 - 6.10 /CUMM) 3.86 L Hgb (14.0 - 18.0 G/DL) 11.6 L Hct (42 - 52 %) 36.1 L MCV (80.0 - 94.0 FL) 93.6 MCH (27.0 - 31.0 PG) 30.2 MCHC (33.0 - 37.0 G/DL) 32.2 L RDW (11.5 - 14.5 %) 14.4 Plt Count (130 - 400 /CUMM) 162 MPV (7.4 - 10.4 FL) 9.8 Gran % (42.2 - 75.2 %) 90.7 H Lymphocytes % (20.5 - 51.1 %) 6.5 L Monocytes % (1.7 - 9.3 %) 2.8 Eosinophils % (0 - 5 %) 0 Basophils % (0.0 - 2.0 %) 0 Absolute Granulocytes (1.4 - 6.5 /CUMM) 7.2 H Absolute Lymphocytes (1.2 - 3.4 /CUMM) 0.5 L Absolute Monocytes (0.10 - 0.60 /CUMM) 0.2 Absolute Eosinophils (0.0 - 0.7 /CUMM) 0 Absolute Basophils (0.0 - 0.2 /CUMM) 0
--- NOTE | 2017-06-03 09:31 | PN- Nephrology ---
Assessment/Plan Nephrology Assessment: 1. ESRD: no HD need today 2. Pericarditis: presumed uremic w small hemodynamically insignificant effusion by echo --> + rub again but w/o CP; on NSAID & well dialyzed now 3. Volume overload: improved 4. A fib: on IV heparin; warfarin per card 5. 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 Anemia: continue MARLEY Suggestion: 1. card f/u 2. next HD Sat --> if can't make outpt seat will do here Subjective Subjective: No CP or SOB No uremic sx Outpt HD arranged for TuThSat @ [facility] Had R IJ cath changed to tunnel line yesterday R knee improving Objective Vital Signs and I&Os Vital Signs Date Time Temp Pulse Resp B/P B/P Pulse O2 O2 Flow FiO2 Mean Ox Delivery Rate 06/03 0846 95 Nasal 3.0L Cannula 06/03 0000 93 Nasal 3.0L Cannula 06/03 0000 98.0 74 14 120/50 93 Nasal 3.0L Cannula 06/02 1700 97 Nasal 2.0L Cannula 06/02 1600 98.0 75 18 122/40 92 Nasal 3.0L Cannula 06/02 1044 68 110/50 06/02 1044 72 110/50 Intake & Output 06/03 1600 06/03 0400 06/02 1600 06/02 0400 06/01 1600 06/01 0400 Intake Total 50 240 1200 180 670 240 Output Total 0 0 0 1999 Balance 50 240 1200 180 -1330 240 Intake, IV 0 0 30 Intake, Oral 50 240 1200 180 640 240 Number 0 1 1 Bowel Movements Output, 1999 Dialysate Output, Urine 0 0 0 Physical Exam General Appearance: well developed/nourished, no apparent distress Head: atraumatic, normal appearance Neck: R IJ cath Respiratory: normal breath sounds, no respiratory distress, quiet respiration, lungs clear Cardiovascular: friction rub, irregularly irregular Abdomen: soft, non-tender Extremities: no edema Neurologic/Psychiatric: awake, alert, oriented x 3 Skin: intact Lymphatic: no anterior cervical whitley Current Medications: Current Medications Sig/Rina Start time Last Medication Dose Route Stop Time Status Admin Acetylcysteine 2 ML BID 06/01 114 AC 06/03 INH 0843 Albuterol Sulfate 3 ML EVERY 4 HRS/AWAKE 05/28 1999 AC 06/03 INH 0844 Albuterol Sulfate 2 PUF Q4-6 PRN PRN 05/27 1545 AC INH Amlodipine Besylate 5 MG DAILY 05/27 1830 AC 06/02 PO 1044 Budesonide/ 2 PUF BID 05/27 2200 AC 06/02 Formoterol Fumarate INH 2114 Calcitriol 2 MCG TUES THURS SAT 06/03 1000 AC IV Calcitriol 1 MCG TUES THURS SAT 06/01 1000 DC 06/01 IV 1100 Calcium Acetate 2,001 MG TIDAC 06/01 1200 AC 06/02 PO 1649 Epoetin Mohamud 1,000 UNIT TuThSa PRN 05/29 1645 AC 06/01 IV 1100 Heparin Sodium 5,000 UNIT Q8 05/27 1400 AC 06/03 (Porcine) SC 0630 Insulin Aspart 0 TIDAC 06/02 0800 AC 06/02 SC 1649 Insulin Detemir 4 UNITS DAILY 05/28 1000 AC 06/02 SC 1123 Levofloxacin 500 MG Q48H 05/31 1000 AC 06/02 PO 1044 Lisinopril 5 MG DAILY 05/28 1000 AC 06/02 PO 1044 Melatonin 3 MG ONCE ONE 06/02 2300 DC 06/02 PO 06/02 2301 2256 Methylprednisolone 60 MG DAILY 05/31 1000 DC 06/02 IV 1051 Midodrine 5 MG SEE ADMIN CRITERIA.. 05/27 1545 AC 05/29 PO 1613 Pantoprazole Sodium 40 MG DAILY 05/28 1000 AC 06/02 IV 1044 Prednisone 40 MG DAILY 06/02 1001 AC 06/02 PO 1123 Prochlorperazine 2.5 MG ONCE ONE 06/02 1130 DC 06/02 IV 06/02 1131 1135 Trimethobenzamide HCl 200 MG ONCE ONE 06/02 1115 CAN IM 06/02 1116 Results Pertinent Lab Results: Laboratory Tests 06/03 06/02 0645 0444 Chemistry Sodium (137 - 145 mmol/L) 135 L 141 Potassium (3.5 - 5.1 mmol/L) 5.6 H 3.9 Chloride (98 - 107 mmol/L) 93 L 102 Carbon Dioxide (22 - 30 mmol/L) 24 24 Anion Gap (5 - 16) 17 H 14 BUN (9 - 20 mg/dL) 112 *H 73 H Creatinine (0.7 - 1.2 mg/dL) 8.0 *H 4.5 H Estimated GFR (>60 ml/min) 6 L 12 L Glucose (65 - 99 mg/dL) 243 H 116 H Calcium (8.4 - 10.2 mg/dL) 7.5 L 6.3 L Phosphorus (2.5 - 4.5 mg/dL) 5.6 H 3.7 Magnesium (1.6 - 2.3 mg/dL) 2.4 H 2.0 Total Bilirubin (0.2 - 1.3 mg/dL) 0.5 0.4 AST (17 - 59 U/L) 11 L 10 L ALT (21 - 72 U/L) 25 23 Albumin (3.5 - 5.0 g/dL) 3.2 L 2.6 L Hematology CBC w Diff NO MAN DIFF REQ NO MAN DIFF REQ WBC (4.8 - 10.8 /CUMM) 8.0 7.4 RBC (4.70 - 6.10 /CUMM) 3.68 L 3.44 L Hgb (14.0 - 18.0 G/DL) 11.1 L 10.4 L Hct (42 - 52 %) 34.4 L 32.0 L MCV (80.0 - 94.0 FL) 93.5 93.0 MCH (27.0 - 31.0 PG) 30.2 30.1 MCHC (33.0 - 37.0 G/DL) 32.3 L 32.4 L RDW (11.5 - 14.5 %) 14.9 H 14.8 H Plt Count (130 - 400 /CUMM) 140 128 L MPV (7.4 - 10.4 FL) 10.0 9.5 Gran % (42.2 - 75.2 %) 85.1 H 80.5 H Lymphocytes % (20.5 - 51.1 %) 8.4 L 10.8 L Monocytes % (1.7 - 9.3 %) 6.4 8.4 Eosinophils % (0 - 5 %) 0.1 0 Basophils % (0.0 - 2.0 %) 0 0.3 Absolute Granulocytes (1.4 - 6.5 /CUMM) 6.8 H 6.0 Absolute Lymphocytes (1.2 - 3.4 /CUMM) 0.7 L 0.8 L Absolute Monocytes (0.10 - 0.60 /CUMM) 0.5 0.6 Absolute Eosinophils (0.0 - 0.7 /CUMM) 0 0 Absolute Basophils (0.0 - 0.2 /CUMM) 0 0 04/10 0400 Chemistry Sodium (137 - 145 mmol/L) 136 L Potassium (3.5 - 5.1 mmol/L) 5.9 H Chloride (98 - 107 mmol/L) 94 L Carbon Dioxide (22 - 30 mmol/L) 19 L Anion Gap (5 - 16) 23 H BUN (9 - 20 mg/dL) 136 *H Creatinine (0.7 - 1.2 mg/dL) 8.3 *H Estimated GFR (>60 ml/min) 6 L Glucose (65 - 99 mg/dL) 300 H Calcium (8.4 - 10.2 mg/dL) 6.3 L Phosphorus (2.5 - 4.5 mg/dL) 6.9 H Magnesium (1.6 - 2.3 mg/dL) 2.3 Total Bilirubin (0.2 - 1.3 mg/dL) 0.5 AST (17 - 59 U/L) 12 L ALT (21 - 72 U/L) 26 Albumin (3.5 - 5.0 g/dL) 3.5 Hematology CBC w Diff NO MAN DIFF REQ WBC (4.8 - 10.8 /CUMM) 8.0 RBC (4.70 - 6.10 /CUMM) 3.86 L Hgb (14.0 - 18.0 G/DL) 11.6 L Hct (42 - 52 %) 36.1 L MCV (80.0 - 94.0 FL) 93.6 MCH (27.0 - 31.0 PG) 30.2 MCHC (33.0 - 37.0 G/DL) 32.2 L RDW (11.5 - 14.5 %) 14.4 Plt Count (130 - 400 /CUMM) 162 MPV (7.4 - 10.4 FL) 9.8 Gran % (42.2 - 75.2 %) 90.7 H Lymphocytes % (20.5 - 51.1 %) 6.5 L Monocytes % (1.7 - 9.3 %) 2.8 Eosinophils % (0 - 5 %) 0 Basophils % (0.0 - 2.0 %) 0 Absolute Granulocytes (1.4 - 6.5 /CUMM) 7.2 H Absolute Lymphocytes (1.2 - 3.4 /CUMM) 0.5 L Absolute Monocytes (0.10 - 0.60 /CUMM) 0.2 Absolute Eosinophils (0.0 - 0.7 /CUMM) 0 Absolute Basophils (0.0 - 0.2 /CUMM) 0 Imaging/Other Studies: Echo: 1. This was a technically difficult examination. 2. Aortic sclerosis is present with no valvular stenosis or insufficiency. 3. Mitral leaflet thickening is present with minimal anular calcification and mild mitral insufficiency with mild left atrial enlargement. 4. A small pericardial effusion is present which is hemodynamically insignificant. 5. The left ventricular chamber size and systolic function appear normal. Mild concentric hypertophy is present. 6. Abnormal interventricular septal motion is present. 7. Mild tricuspid insufficiency is present with minimal to mild pulmonic insufficiency and an estimated RV systolic pressure of 36 mmHg.
[2017-06-03 16:00] VITALS: BP 148/70
--- NOTE | 2017-06-03 16:49 | PN- Cardiology ---
Subjective Subjective: The patient denies any significant shortness of breath or wheezing at rest. However, his respiratory examination is not seen medically change with significant bilateral rhonchi and wheezing present. Objective Vital Signs and I&Os Vital Signs Date Time Temp Pulse Resp B/P B/P Pulse O2 O2 Flow FiO2 Mean Ox Delivery Rate 06/03 1600 98.0 82 22 148/70 96 Nasal 3.0L Cannula 06/03 1600 94 Nasal 3.0L Cannula 06/03 1146 96 Nasal 2.0L Cannula 06/03 0846 95 Nasal 3.0L Cannula 06/03 0800 98 Nasal 3.0L Cannula 06/03 0800 98.6 68 18 130/50 98 Nasal 3.0L Cannula 06/03 0000 93 Nasal 3.0L Cannula 06/03 0000 98.0 74 14 120/50 93 Nasal 3.0L Cannula 06/02 1700 97 Nasal 2.0L Cannula Intake & Output 06/03 1600 06/03 0800 06/03 0000 06/02 1600 06/02 0800 06/02 0000 Intake Total 300 50 240 960 240 180 Output Total 232 0 0 0 Balance 68 50 240 960 240 180 Intake, IV 0 0 Intake, Oral 300 50 240 960 240 180 Number 0 1 Bowel Movements Output, 232 Dialysate Output, Urine 0 0 0 Patient 157 lb Weight Weight Bed scale Measurement Method Physical Exam: General Appearance: no apparent distress, alert, awake, comfortable Respiratory: bilateral rhonchi, rales, diffuse bilateral expiratory wheeze Cardiovascular: regular rate/rhythm, S1, S2 Gastrointestinal: normal bowel sounds, soft, non-tender Extremities: no edema Cranial Nerves: normal hearing, normal speech, PERRL Current Medications: Current Medications Sig/Rina Start time Last Medication Dose Route Stop Time Status Admin Acetaminophen 650 MG ONCE ONE 06/03 1300 DC 06/03 PO 06/03 1301 1255 Acetylcysteine 2 ML BID 06/01 1145 AC 06/03 INH 0843 Albuterol Sulfate 3 ML EVERY 4 HRS/AWAKE 05/28 1999 AC 06/03 INH 1157 Albuterol Sulfate 2 PUF Q4-6 PRN PRN 05/27 1545 AC INH Amlodipine Besylate 5 MG DAILY 05/27 1830 AC 06/02 PO 1044 Budesonide/ 2 PUF BID 05/27 2200 AC 06/03 Formoterol Fumarate INH 1028 Calcitriol 2 MCG TUES THURS SAT 06/03 1000 AC IV Calcium Acetate 2,001 MG TIDAC 06/01 1200 AC 06/03 PO 1512 Epoetin Mohamud 1,000 UNIT TuThSa PRN 05/29 1645 AC 06/01 IV 1100 Heparin Sodium 5,000 UNIT Q8 05/27 1400 AC 06/03 (Porcine) SC 1518 Insulin Aspart 0 TIDAC 06/02 0800 AC 06/03 SC 1026 Insulin Detemir 4 UNITS DAILY 05/28 1000 AC 06/03 SC 1026 Levofloxacin 500 MG Q48H 05/31 1000 AC 06/02 PO 1044 Lisinopril 5 MG DAILY 05/28 1000 AC 06/02 PO 1044 Melatonin 3 MG ONCE ONE 06/02 2300 DC 06/02 PO 06/02 230 2256 Midodrine 5 MG SEE ADMIN CRITERIA.. 05/27 1545 AC 05/29 PO 1613 Pantoprazole Sodium 40 MG DAILY 05/28 1000 AC 06/03 IV 1025 Prednisone 40 MG DAILY 06/02 1001 AC 06/03 PO 1027 Results Last 48 Hrs of Labs/Mics: Laboratory Tests 06/03/17 0645: Anion Gap 17 H, Estimated GFR 6 L, Glucose 243 H, Calcium 7.5 L, Phosphorus 5.6 H, Magnesium 2.4 H, Total Bilirubin 0.5, AST 11 L, ALT 25, Albumin 3.2 L , CBC w Diff NO MAN DIFF REQ, RBC 3.68 L, MCV 93.5, MCH 30.2, MCHC 32.3 L, RDW 14.9 H, MPV 10.0, Gran % 85.1 H, Lymphocytes % 8.4 L, Monocytes % 6.4, Eosinophils % 0.1, Basophils % 0, Absolute Granulocytes 6.8 H, Absolute Lymphocytes 0.7 L, Absolute Monocytes 0.5, Absolute Eosinophils 0, Absolute Basophils 0 06/02/17 0444: Anion Gap 14, Estimated GFR 12 L, Glucose 116 H, Calcium 6.3 L, Phosphorus 3.7, Magnesium 2.0, Total Bilirubin 0.4, AST 10 L, ALT 23, Albumin 2.6 L, CBC w Diff NO MAN DIFF REQ, RBC 3.44 L, MCV 93.0, MCH 30.1, MCHC 32.4 L, RDW 14.8 H, MPV 9.5, Gran % 80.5 H, Lymphocytes % 10.8 L, Monocytes % 8.4, Eosinophils % 0, Basophils % 0.3, Absolute Granulocytes 6.0, Absolute Lymphocytes 0.8 L, Absolute Monocytes 0.6, Absolute Eosinophils 0, Absolute Basophils 0 Assessment/Plan Assessment/Plan Assessment: 1. Nonsustained ventricular tachycardia-no evidence of any significant arrhythmias over the last 24 hours 2. 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 History of hypertension 4. hyperkalemia-improved 5. End-stage renal disease Recommendations: -Monitor on telemetry for another 24 hours -Continue aggressive respiratory care -Follow metabolic parameters in a.m. -No further evaluation required at the present time. Continue telemetry? Yes
[2017-06-03 23:00] VITALS: BP 130/46
[2017-06-04 04:58] LABS: ABSOLUTE BASOPHIL COUNT 0 /CUMM (0.0-0.2); ABSOLUTE EOSINOPHIL COUNT 0 /CUMM (0.0-0.7); ABSOLUTE GRANULOCYTE CT 7.6 /CUMM (1.4-6.5); ABSOLUTE LYMPH COUNT 0.9 /CUMM (1.2-3.4); ABSOLUTE MONOCYTE COUNT 0.6 /CUMM (0.10-0.60); BASOPHIL % 0.2 % (0.0-2.0); EOSINOPHIL % 0.1 % (0-5); GRANULOCYTE % 82.6 % (42.2-75.2); HEMATOCRIT 34.2 % (42-52); MEAN CORPUSCULAR HGB 30.1 PG (27.0-31.0); MEAN CORPUSCULAR VOLUME 94.2 FL (80.0-94.0); MEAN PLATELET VOLUME 9.5 FL (7.4-10.4); PLATELET COUNT 120 /CUMM (130-400); RBC DISTRIBUTION WIDTH 15.2 % (11.5-14.5); RED BLOOD CELL CT 3.64 /CUMM (4.70-6.10); WHITE BLOOD CELL COUNT 9.3 /CUMM (4.8-10.8)
--- NOTE | 2017-06-04 07:11 | PN- Resident CRCU ---
Warner FARFAN,[facility] 06/04/17 0711: Subjective HPI/CRCU Issues: - Acute on chronic hypoxic and hypercarbic respiratory failure due to COPD/ asthma exacerbation(Off Bipap, on 3L Oxygen by Nasal canula). - ESRD on hemodialysis , and Wed. - Hx of Diabetes with elevated blood sugar levels from steroid use - Persistent hyperkalemia which is improved with hemodialysis - Nonsustained V. tach - Microcytic anemia related to chronic disease and renal failure. - Hx. of hypertension. 24 Hour Events: Patient resting comfortably. Have cough with sputum production but getting better. Also have shortness of breath which is his baseline. Deneis any Chest pain, palpitations or fever/chills. Objective Vital Signs & I&O Last 8 Hrs of Vitals and I&O: Intake & Output 06/04 1600 Intake Total 300 Output Total 0 Balance 300 Intake, IV 0 Intake, Oral 300 Number 2 Bowel Movements Output, Urine 0 Exam General Appearance: no apparent distress, alert, awake, comfortable Head: atraumatic, normal appearance Respiratory: chest non-tender, wheezing Cardiovascular: regular rate/rhythm Gastrointestinal: normal bowel sounds, soft, non-tender Extremities: normal inspection, no edema Cranial Nerves: normal hearing, normal speech, PERRL Current Medications: Current Medications Sig/Rina Start time Last Medication Dose Route Stop Time Status Admin Acetylcysteine 2 ML BID 06/01 1145 DC 06/03 INH 0843 Albuterol Sulfate 3 ML EVERY 4 HRS/AWAKE 05/27 2000 AC 06/04 INH 1126 Albuterol Sulfate 2 PUF Q4-6 PRN PRN 05/27 1545 AC INH Amlodipine Besylate 5 MG DAILY 05/27 1830 AC 06/04 PO 0821 Budesonide/ 2 PUF BID 05/27 2200 AC 06/04 Formoterol Fumarate INH 0822 Calcitriol 2 MCG SAT 06/03 1000 AC IV Calcium Acetate 2,001 MG TIDAC 06/01 1200 AC 06/04 PO 1242 Epoetin Mohamud 1,000 UNIT TuThSa PRN 05/29 1645 AC 06/01 IV 1100 Guaifenesin 10 ML Q6P PRN 06/03 2130 AC 06/03 PO 2134 Heparin Sodium 5,000 UNIT Q8 05/27 1400 AC 06/04 (Porcine) SC 1442 Insulin Aspart 0 TIDAC 06/02 0800 AC 06/04 SC 1226 Insulin Detemir 4 UNITS DAILY 05/28 1000 AC 06/04 SC 0823 Levofloxacin 500 MG Q48H 05/31 1000 DC 06/04 PO 0825 Lisinopril 5 MG DAILY 05/28 1000 AC 06/04 PO 0823 Midodrine 5 MG SEE ADMIN CRITERIA.. 05/27 1545 AC 05/29 PO 1613 Pantoprazole Sodium 40 MG DAILY 05/28 1000 AC 06/04 IV 0823 Prednisone 40 MG DAILY 06/02 1001 AC 06/04 PO 0825 Impression/Plan Impression/Problem List Impression: Patient is an 86-year-old male with past medical history of insulin-dependent diabetes mellitus, end-stage renal disease on dialysis every Wednesday, , Wednesday with an AV fistula in his right arm, COPD on 2 L oxygen at home, asthma , hypertension who presented this admission with worsening dyspnea. Patient was admitted to the ICU for management of the following: Respiratory: Acute Hypoxic and Hypercarbic Respiratory Distress secondary to Acute COPD Exacerbation Patient's ABG showed a mixed respiratory acidosis pictures with metabolic acidosis. Chest xray shows no focal consolidation or signs of fluid overload. Patient was tranisitioned from BIPAP --> to high flow oxygen --> to nasal canula. Patient's respiratory status back to baseline. 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 - Continues to be on 3 L of oxygen by nasal cannula, saturating 93%. - TRC/ Neb treatments q4h and continue Mucomyst nebs - Continue Levaquin x 4 more doses. - Symbicort - Change prednisone to 30mg daily with quick. Infectious: COPD Exacerbation - See above Cardiac: 1. History of HTN: - continue to monitor bp. Reported bp by dialysis on day of admission was systolic of 109. Patient's bp during his admission remains elevated. Patient had and ECHO of LVEF >60% with right ventricular systolic pressure >69 mmHg. - continue lisinopril, amlodipine 2. Nonsustained V. tach - No treatment needed at this time - Continue to monitor on telemetry. - Appreciate cardiology recommendations. Heme: Anemia Likely secondary to ESRD. Metabolic: 1. Diabetes Mellitus -Blood sugars ranging from 130-346 for the past 24 hours, likely secondary to Steroid Use. -Insulin SS, Accuchecks -Levemir 4 units daily 2. Hyperkalemia - Patient has ESRD. Received dialysis today. - Continue to monitor K. - Continue to monitor on tele Ailementary: Consistent carbohydrate diet with renal restrictions Neurology: None Nephrology: ESRD on HD Wednesday, , Wednesday. - dialysis tomorrow - continue to monitor I/O. - continue to monitor electrolytes - Lasix was DC'd as the patient has no urine output. - nephrology consulted. appreciate recommendations - Continue calcium acetate 2001mg with meals - Calcitriol increased to 2 mcg for hypocalcemia - to be given with hemodialysis. DVT PPx: Heparin SQ and ALPS GI PPx: IV Protonix Patient is full code Problem List: 1. ESRD on dialysis 2. COPD with exacerbation Pain Ratin Pain Location: NA Pain Plan: NA Tomorrow's Labs & Rationales: None Plan DVT/Prophylaxis: mechanical, pharmacological Anish Lock MD 06/04/17 1120: Attending MD Review Statement Attending Sign Off Attending Cosign Statement: I have: examined this patient, reviewed avalbl EMR data, personally reviewd images, discussd w/resident/PA/COMPUTER OPERATOR, discussed mgmt plan w/corie, discussed mgmt plan w/CM, discussed mgmt plan w/pt, agreed w/resident/PA/COMPUTER OPERATOR, amended to note. Other Findings: IAnish M.D. have examined this patient, reviewed available EMR data, personally reviewed images, discussed with resident/PA/COMPUTER OPERATOR, discussed management plan with housestaff and nursing staff, discussed managment plan all of healthcare providers, discussed management plan with patient and/or family, agreed with resident/PA/COMPUTER OPERATOR. The past history and parts of the chart have been autopopulated. Impression 86 year old man * acute hypoxemic respiratory failure * ESRD on HD Plan -on nasal cannula -taper po prednisone -trc/nebs -renal consultation appreciated -HD per nephrology -cardiology consultation appreciated telemetry hold if pt is able to be independent, we can consider discharge shortly
[2017-06-04 08:00] VITALS: BP 110/50
--- NOTE | 2017-06-04 09:16 | PN- Nephrology ---
Assessment/Plan Nephrology Assessment: 1. ESRD: due to DM & HTN; no HD need today 2. Resp failure: due to severe chronic lung dx; continue steroids, bronchodilators, & antibiotics per pulm. 3. Hypocalcemia: improved on hi Ca dialysate (3 mmole/L), calcitriol IV, & po Ca acetate Suggestion: HD tomorrow OK for florr fromr enal perspective Subjective Subjective: Awake & alert Less SOB Cough improved Objective Vital Signs and I&Os Vital Signs Date Time Temp Pulse Resp B/P B/P Pulse O2 O2 Flow FiO2 Mean Ox Delivery Rate 06/04 0823 78 134/58 06/04 0821 78 134/58 06/04 0615 96 Nasal 2.0L Cannula 06/04 0000 95 Nasal 3.0L Cannula 06/03 2300 97.7 75 22 130/46 95 Nasal 3.0L Cannula 06/03 2025 96 Nasal 2.0L Cannula 06/03 1600 98.0 82 22 148/70 96 Nasal 3.0L Cannula 06/03 1600 94 Nasal 3.0L Cannula 06/03 1146 96 Nasal 2.0L Cannula Intake & Output 06/04 1600 06/04 0400 06/03 1600 06/03 0400 06/02 1600 06/02 0400 Intake Total 0 392 405 9953 180 Output Total 0 232 0 0 Balance 0 885 263 5340 180 Intake, IV 0 0 Intake, Oral 0 630 767 8630 180 Number 2 0 1 Bowel Movements Output, 232 Dialysate Output, Urine 0 0 0 0 Patient 157 lb Weight Weight Bed scale Measurement Method Physical Exam General Appearance: no apparent distress, alert Head: atraumatic, normal appearance Ears, Nose, Throat: normal ENT inspection Neck: normal inspection Respiratory: rhonchi, wheezing Cardiovascular: regular rate/rhythm Abdomen: soft, non-tender, no organomegaly Extremities: no edema, + bruit R arm AVF Neurologic/Psychiatric: awake, alert Lymphatic: no anterior cervical whitley Current Medications: Current Medications Sig/Rina Start time Last Medication Dose Route Stop Time Status Admin Acetaminophen 650 MG ONCE ONE 06/03 1300 DC 06/03 PO 06/03 1301 1255 Acetylcysteine 2 ML BID 06/01 1145 DC 06/03 INH 0843 Albuterol Sulfate 3 ML EVERY 4 HRS/AWAKE 05/28 1999 AC 06/04 INH 0605 Albuterol Sulfate 2 PUF Q4-6 PRN PRN 05/27 1545 AC INH Amlodipine Besylate 5 MG DAILY 05/27 1830 AC 06/04 PO 0821 Budesonide/ 2 PUF BID 05/27 2200 AC 06/04 Formoterol Fumarate INH 0822 Calcitriol 2 MCG TUES THURS SAT 06/03 1000 AC IV Calcium Acetate 2,001 MG TIDAC 06/01 1200 AC 06/04 PO 0825 Epoetin Mohamud 1,000 UNIT TuThSa PRN 05/29 1645 AC 06/01 IV 1100 Guaifenesin 10 ML Q6P PRN 06/03 2130 AC 06/03 PO 2134 Heparin Sodium 5,000 UNIT Q8 05/27 1400 AC 06/04 (Porcine) SC 0620 Insulin Aspart 0 TIDAC 06/02 0800 AC 06/03 SC 1820 Insulin Detemir 4 UNITS DAILY 05/28 1000 AC 06/04 SC 0823 Levofloxacin 500 MG Q48H 05/31 1000 AC 06/04 PO 0825 Lisinopril 5 MG DAILY 05/28 1000 AC 06/04 PO 0823 Midodrine 5 MG SEE ADMIN CRITERIA.. 05/27 1545 AC 05/29 PO 1613 Pantoprazole Sodium 40 MG DAILY 05/28 1000 AC 06/04 IV 0823 Prednisone 40 MG DAILY 06/02 1001 AC 06/04 PO 0825 Results Pertinent Lab Results: Laboratory Tests 06/04 06/03 0437 0645 Chemistry Sodium (137 - 145 mmol/L) 136 L 135 L Potassium (3.5 - 5.1 mmol/L) 5.0 5.6 H Chloride (98 - 107 mmol/L) 96 L 93 L Carbon Dioxide (22 - 30 mmol/L) 29 24 Anion Gap (5 - 16) 12 17 H BUN (9 - 20 mg/dL) 55 H 112 *H Creatinine (0.7 - 1.2 mg/dL) 4.5 H 8.0 *H Estimated GFR (>60 ml/min) 12 L 6 L Glucose (65 - 99 mg/dL) 176 H 243 H Calcium (8.4 - 10.2 mg/dL) 7.3 L 7.5 L Phosphorus (2.5 - 4.5 mg/dL) 4.0 5.6 H Magnesium (1.6 - 2.3 mg/dL) 1.9 2.4 H Total Bilirubin (0.2 - 1.3 mg/dL) 0.5 0.5 AST (17 - 59 U/L) 12 L 11 L ALT (21 - 72 U/L) 28 25 Albumin (3.5 - 5.0 g/dL) 2.9 L 3.2 L Hematology CBC w Diff NO MAN DIFF REQ NO MAN DIFF REQ WBC (4.8 - 10.8 /CUMM) 9.3 8.0 RBC (4.70 - 6.10 /CUMM) 3.64 L 3.68 L Hgb (14.0 - 18.0 G/DL) 11.0 L 11.1 L Hct (42 - 52 %) 34.2 L 34.4 L MCV (80.0 - 94.0 FL) 94.2 H 93.5 MCH (27.0 - 31.0 PG) 30.1 30.2 MCHC (33.0 - 37.0 G/DL) 32.0 L 32.3 L RDW (11.5 - 14.5 %) 15.2 H 14.9 H Plt Count (130 - 400 /CUMM) 120 L 140 MPV (7.4 - 10.4 FL) 9.5 10.0 Gran % (42.2 - 75.2 %) 82.6 H 85.1 H Lymphocytes % (20.5 - 51.1 %) 10.1 L 8.4 L Monocytes % (1.7 - 9.3 %) 7.0 6.4 Eosinophils % (0 - 5 %) 0.1 0.1 Basophils % (0.0 - 2.0 %) 0.2 0 Absolute Granulocytes (1.4 - 6.5 /CUMM) 7.6 H 6.8 H Absolute Lymphocytes (1.2 - 3.4 /CUMM) 0.9 L 0.7 L Absolute Monocytes (0.10 - 0.60 /CUMM) 0.6 0.5 Absolute Eosinophils (0.0 - 0.7 /CUMM) 0 0 Absolute Basophils (0.0 - 0.2 /CUMM) 0 0 04/11 0444 Chemistry Sodium (137 - 145 mmol/L) 141 Potassium (3.5 - 5.1 mmol/L) 3.9 Chloride (98 - 107 mmol/L) 102 Carbon Dioxide (22 - 30 mmol/L) 24 Anion Gap (5 - 16) 14 BUN (9 - 20 mg/dL) 73 H Creatinine (0.7 - 1.2 mg/dL) 4.5 H Estimated GFR (>60 ml/min) 12 L Glucose (65 - 99 mg/dL) 116 H Calcium (8.4 - 10.2 mg/dL) 6.3 L Phosphorus (2.5 - 4.5 mg/dL) 3.7 Magnesium (1.6 - 2.3 mg/dL) 2.0 Total Bilirubin (0.2 - 1.3 mg/dL) 0.4 AST (17 - 59 U/L) 10 L ALT (21 - 72 U/L) 23 Albumin (3.5 - 5.0 g/dL) 2.6 L Hematology CBC w Diff NO MAN DIFF REQ WBC (4.8 - 10.8 /CUMM) 7.4 RBC (4.70 - 6.10 /CUMM) 3.44 L Hgb (14.0 - 18.0 G/DL) 10.4 L Hct (42 - 52 %) 32.0 L MCV (80.0 - 94.0 FL) 93.0 MCH (27.0 - 31.0 PG) 30.1 MCHC (33.0 - 37.0 G/DL) 32.4 L RDW (11.5 - 14.5 %) 14.8 H Plt Count (130 - 400 /CUMM) 128 L MPV (7.4 - 10.4 FL) 9.5 Gran % (42.2 - 75.2 %) 80.5 H Lymphocytes % (20.5 - 51.1 %) 10.8 L Monocytes % (1.7 - 9.3 %) 8.4 Eosinophils % (0 - 5 %) 0 Basophils % (0.0 - 2.0 %) 0.3 Absolute Granulocytes (1.4 - 6.5 /CUMM) 6.0 Absolute Lymphocytes (1.2 - 3.4 /CUMM) 0.8 L Absolute Monocytes (0.10 - 0.60 /CUMM) 0.6 Absolute Eosinophils (0.0 - 0.7 /CUMM) 0 Absolute Basophils (0.0 - 0.2 /CUMM) 0
--- NOTE | 2017-06-04 11:53 | PN- Cardiology ---
Subjective Subjective: Shortness of breath is stable. No chest pain. No palpitations. No diaphoresis. No lightheadedness or dizziness. No further ventricular tachycardia seen on the monitor and storage bin tender Objective Vital Signs and I&Os Vital Signs Date Time Temp Pulse Resp B/P B/P Pulse O2 O2 Flow FiO2 Mean Ox Delivery Rate 06/04 822 78 134/58 06/04 08 78 134/58 06/04 0800 94 Nasal 2.0L Cannula 06/04 08 98.6 74 20 110/50 97 Nasal 2.0L Cannula 06/04 0615 96 Nasal 2.0L Cannula 06/04 0000 95 Nasal 3.0L Cannula 06/03 2300 97.7 75 22 130/46 95 Nasal 3.0L Cannula 06/03 2024 96 Nasal 2.0L Cannula 06/03 1600 98.0 82 22 148/70 96 Nasal 3.0L Cannula 06/03 1600 94 Nasal 3.0L Cannula Intake & Output 06/04 1600 06/04 0800 06/04 0000 06/03 1600 06/03 0800 06/03 0000 Intake Total 0 300 50 240 Output Total 0 232 0 0 Balance 0 68 50 240 Intake, IV 0 0 Intake, Oral 0 300 50 240 Number 2 0 1 Bowel Movements Output, 232 Dialysate Output, Urine 0 0 0 Patient 157 lb Weight Weight Bed scale Measurement Method Physical Exam: Gen: NAD HEENT: normal Lungs: Bilateral rhonchi and rales, normal resp. effort Heart: S1, S2, no murmurs Abdomen: Soft, nontender, no masses Extremities: No clubbing, cyanosis, or edema. Neuro: Alert and oriented x 3, cranial nerves intact Current Medications: Current Medications Sig/Rina Start time Last Medication Dose Route Stop Time Status Admin Acetaminophen 650 MG ONCE ONE 06/03 1300 DC 06/03 PO 06/03 1301 1255 Acetylcysteine 2 ML BID 06/01 1145 DC 06/03 INH 0843 Albuterol Sulfate 3 ML EVERY 4 HRS/AWAKE 05/28 1999 AC 06/04 INH 1126 Albuterol Sulfate 2 PUF Q4-6 PRN PRN 05/27 1545 AC INH Amlodipine Besylate 5 MG DAILY 05/27 1830 AC 06/04 PO 0821 Budesonide/ 2 PUF BID 05/27 2200 AC 06/04 Formoterol Fumarate INH 0822 Calcitriol 2 MCG TU TH SAT 06/03 1000 AC IV Calcium Acetate 2,001 MG TIDAC 06/01 1200 AC 06/04 PO 0825 Epoetin Mohamud 1,000 UNIT TuThSa PRN 05/29 1645 AC 06/01 IV 1100 Guaifenesin 10 ML Q6P PRN 06/03 2130 AC 06/03 PO 2134 Heparin Sodium 5,000 UNIT Q8 05/27 1400 AC 06/04 (Porcine) SC 0620 Insulin Aspart 0 TIDAC 06/02 0800 AC 06/03 SC 1820 Insulin Detemir 4 UNITS DAILY 05/28 1000 AC 06/04 SC 0823 Levofloxacin 500 MG Q48H 05/31 1000 DC 06/04 PO 0825 Lisinopril 5 MG DAILY 05/28 1000 AC 06/04 PO 0823 Midodrine 5 MG SEE ADMIN CRITERIA.. 05/27 1545 AC 05/29 PO 1613 Pantoprazole Sodium 40 MG DAILY 05/28 1000 AC 06/04 IV 0823 Prednisone 40 MG DAILY 06/02 1001 AC 06/04 PO 0825 Results Last 48 Hrs of Labs/Mics: Laboratory Tests 06/04/17 0437: Anion Gap 12, Estimated GFR 12 L, Glucose 176 H, Calcium 7.3 L, Phosphorus 4.0, Magnesium 1.9, Total Bilirubin 0.5, AST 12 L, ALT 28, Albumin 2.9 L, CBC w Diff NO MAN DIFF REQ, RBC 3.64 L, MCV 94.2 H, MCH 30.1, MCHC 32.0 L, RDW 15.2 H, MPV 9.5, Gran % 82.6 H, Lymphocytes % 10.1 L, Monocytes % 7.0, Eosinophils % 0.1, Basophils % 0.2, Absolute Granulocytes 7.6 H, Absolute Lymphocytes 0.9 L, Absolute Monocytes 0.6, Absolute Eosinophils 0, Absolute Basophils 0 06/03/17 0645: Anion Gap 17 H, Estimated GFR 6 L, Glucose 243 H, Calcium 7.5 L, Phosphorus 5.6 H, Magnesium 2.4 H, Total Bilirubin 0.5, AST 11 L, ALT 25, Albumin 3.2 L , CBC w Diff NO MAN DIFF REQ, RBC 3.68 L, MCV 93.5, MCH 30.2, MCHC 32.3 L, RDW 14.9 H, MPV 10.0, Gran % 85.1 H, Lymphocytes % 8.4 L, Monocytes % 6.4, Eosinophils % 0.1, Basophils % 0, Absolute Granulocytes 6.8 H, Absolute Lymphocytes 0.7 L, Absolute Monocytes 0.5, Absolute Eosinophils 0, Absolute Basophils 0 Assessment/Plan Assessment/Plan Assessment: 1. Nonsustained ventricular tachycardia-no evidence of any significant arrhythmias over the last 24 hours 2. 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 History of hypertension 4. hyperkalemia-improved 5. End-stage renal disease Plan: * Okay to discontinue telemetry. * Planned for discharge soon * Continue current cardiovascular medication * Follow up in the office within 2 weeks Continue telemetry? No
[2017-06-04] MEDS ORDERED: PREDNISONE20 M1 PO ×2 (12:32→13:53)
--- NOTE | 2017-06-04 12:36 | Patient Discharge Instructions ---
Discharge Instructions General Discharge Information You were seen/treated for: - Acute on chronic hypoxic and hypercarbic respiratory failure due to COPD/ asthma exacerbation(currently off Bipap). - ESRD on hemodialysis - Persistent hyperkalemia which is improved with hemodialysis - Nonsustained V. tach Watch for these problems: Please return to the ER in case of any worsening cough, sputum production, fever /chills or shortness of breath. Special Instructions: Please follow up with your PCP within a week after discharge. Please follow-up with your apparel patternmaker within a week after discharge. Please follow-up with your machine buffer within a week after discharge Diet Continue normal diet: Yes Recommended Diet: Renal Dialysis Activity Full Activity/No Limits: Yes Activity Self Limited: Yes Acute Coronary Syndrome Inclusion Criteria At DC or during hospital stay patient has or had the following: ACS DIAGNOSIS No Discharge Core Measures Meds if any: Prescribed or Continued at Discharge Meds if any: NOT Prescribed or Continued at Discharge Congestive Heart Failure Inclusion Criteria At DC or during hospital stay patient has or had the following: CHF DIAGNOSIS No Discharge Core Measures Meds if any: Prescribed or Continued at Discharge Meds if any: NOT Prescribed or Continued at Discharge Cerebrovascular accident Inclusion Criteria At DC or during hospital stay patient has or had the following: CVA/TIA Diagnosis No Discharge Core Measures Meds if any: Prescribed or Continued at Discharge Meds if any: NOT Prescribed or Continued at Discharge Venous thromboembolism Inclusion Criteria VTE Diagnosis No VTE Type NONE VTE Confirmed by (Test) NONE Discharge Core Measures - Per Current guidelines, there needs to be overlap - treatment for the first 5 days of Warfarin therapy. - If discharged on Warfarin prior to 5 days of - overlap therapy, the patient will need to be - assessed for post discharge needs including - *Post discharge parental anticoagulation - *Warfarin and/or parental anticoagulation education - *Follow up date to check INR post discharge At least 5 days overlap therapy as Inpatient No Meds if any: Prescribed or Continued at Discharge Note: Overlap Therapy is Warfarin and Anticoagulant Meds if any: NOT Prescribed or Continued at Discharge
--- NOTE | 2017-06-04 12:42 | Discharge Summary ---
Visit Information Visit Dates Admission Date: 05/27/17 Discharge Date: 06/04/17 Hospital Course Course Attending Physician: Anish Lock MD Primary Care Physician: Leslie Palmer MD Hospital Course: Patient is an 86-year-old male with past medical history of insulin-dependent diabetes mellitus, end-stage renal disease on dialysis every Wednesday, , Wednesday with an AV fistula in his right arm, COPD on 2 L oxygen at home, asthma , hypertension who presented this admission with worsening dyspnea. Patient was admitted to the ICU for management of the following: - Acute on chronic hypoxic and hypercarbic respiratory failure due to COPD/ asthma exacerbation(Off Bipap, on 3L Oxygen by Nasal canula). - ESRD on hemodialysis , and Wed. - Hx of Diabetes with elevated blood sugar levels from steroid use - Persistent hyperkalemia which is improved with hemodialysis - Nonsustained V. tach - Microcytic anemia related to chronic disease and renal failure. - Hx. of hypertension. Acute Hypoxic and Hypercarbic Respiratory Distress secondary to Acute COPD Exacerbation; Patient's ABG showed a mixed respiratory acidosis pictures with metabolic acidosis. Chest xray shows no focal consolidation or signs of fluid overload. Patient initially required BIPAP, later transitioned to high flow oxygen and finally to 3 L of oxygen by nasal canula. Patient also required high doses of IV Solu-Medrol initially which was later transitioned to by mouth Prednisone and was tapered over 10-12 days. 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 Patient was given a total of 7 doses of Levaquin every 48 hours(4 doses remaining at the time of discharge). Symbicort was continued and he was also started on Mucomyst nebs for congestion. Respiratory status was back to baseline at the time of discharge. Hx of diabetes Patient has a history of diabetes with blood sugars remaining elevated likely secondary to Steroid use throughout his hospital stay. He was maintained on insulin sliding scale and Levemir 4 units daily. Dietary restrictions with consistent diet carbohydrate 1. ESRD on dialysis with Anemai, hyperkalemia and hypocalcemia; Patient also received hemodialysis Wednesday, , and Wednesday for ERSD. Electrolytes, Intake and outputs were closely monitored. Lasix was DC'd after discussion with nephrology as the patient did not have any urine output. Patient was also started on calcium acetate 2001mg with meals and Calcitriol increased to 2 mcg for hypocalcemia to be given with hemodialysis. Potassium levels remained fluctuating, with improvement on days of dialysis. Chronic anemia also likely secondary to ESRD, with H&H remaining stable. Nonsustained V. tach; patient had an episode of nonsustained V. tach (6 beats) on nurse monitoring. Cardiology consult was obtained, did not suggest any intervention at the time. History of HTN: Patient's blood pressure remained elevated with SBP in 160s within the initial days of admission. Echocardiogram was obtained showing LVEF >60% with right ventricular systolic pressure >69 mmHg. Lisinopril and amlodipine were continued with SBP ranging between 120s to 130s on discharge. Allergies: Coded Allergies: No Known Allergies (11/03/16) Significant Procedures: US-LIMITED ABDOMEN FINDINGS: PANCREAS: Evaluation of the pancreas is quite limited due to overlying bowel gas. LIVER: The liver is of normal size and echogenicity without focal lesions nor intrahepatic biliary ductal dilation. GALLBLADDER: Normal. The gallbladder is physiologically distended without evidence of stones, sludge, polyps, wall thickening or pericholecystic fluid. COMMON BILE DUCT: Normal in caliber measuring 0.4 cm in diameter. RIGHT KIDNEY: There is neither hydronephrosis nor nephrolithiasis. The right kidney is atrophic measuring 7.2 cm in long axis. There is diffuse renal cortical thinning. FREE FLUID: None. IMPRESSION: Atrophic right kidney without hydronephrosis nor nephrolithiasis. Otherwise, unremarkable limited right upper quadrant ultrasound. XRY-PORTABLE CHEST XRAY 05/27/17 FINDINGS: Mild hyperinflated lung field is present bilaterally. Persistent stable mild bilateral perihilar, and upper lobar prominent bronchovascular markings are noted, may represent mild pulmonary venous congestion. No discrete superimposed focal airspace disease present. There is no pleural effusion present. The cardiomediastinal silhouette is within normal limit. Incidental note is made of a radiopaque stent projecting over the right infraclavicular region medially, unchanged. IMPRESSION: Possible mild pulmonary venous congestion, appears similar to prior study dated 11/04/2016. XRY-PORTABLE CHEST XRAY 06/01/17 FINDINGS: Lungs are clear. No pulmonary vascular congestion. There is no pleural effusion. The heart size is normal. The cardiac and mediastinal contours are normal. There are calcifications of the thoracic aorta. There is a vascular stent over the right upper chest. There are multilevel degenerative changes of dorsal spine. IMPRESSION: No acute abnormality of the chest. Disposition Summary Disposition Principal Diagnosis: Acute on chronic hypoxic and hypercarbic respiratory failure due to COPD/asthma Additional Diagnosis: - ESRD on hemodialysis Tu, and Sat. - Hx of Diabetes with elevated blood sugar levels from steroid use - Persistent hyperkalemia improved with hemodialysis - Nonsustained V. tach - Microcytic anemia related to chronic disease and renal failure. - Hx. of hypertension. Discharge Disposition: home health services Discharge Instructions General Discharge Information Code Status: Full Code Patient's Diet: Diabetic and Renal Patient's Activity: As tolerated Follow-Up Instructions/Appts: Please follow up with your PCP within a week after discharge. Please follow-up with your group insurance specialist within a week after discharge. Please follow-up with your rehabilitation services manager within a week after discharge. Medications at Discharge Discharge Medications: Stop taking the following medications: Furosemide (Furosemide) 80 MG TABLET ORAL 2 times per week Qty = 30 Atenolol (Atenolol) 25 MG TABLET ORAL DAILY Continue taking these medications: Lisinopril (Lisinopril) 5 MG TABLET 1 Tablet ORAL DAILY Comments: Last Taken:06/04/17 Time: 0820 AM Amlodipine Besylate (Amlodipine Besylate) 5 MG TABLET 1 Tablet ORAL DAILY Qty = 90 Comments: Last Taken: 06/04/17 Time: 0820 AM Pantoprazole Sodium (Protonix) 40 MG TABLET.DR 1 Tablet ORAL DAILY Qty = 30 Comments: Last Taken: 06/04/17 Time: 0820 AM Insulin Glargine,Hum.rec.anlog (Lantus Solostar) 100 UNIT/ML (3 ML) INSULN.PEN 4 Unit Inject into fatty tissue Every night Qty = 30 Comments: Last Taken:06/04/17 Time: 0820 AM Insulin Aspart, Recombinant (Novolog Flexpen) 100 UNIT/ML INSULN.PEN 1 Unit Inject into fatty tissue 3 TIMES DAILY BEFORE MEALS Qty = 30 Comments: BS UNITS <80 0 81-100 0 101-150 2 151-200 4 201-250 6 251-300 8 301-350 9 351-400 10 400+ 11 AND CALL Budesonide/Formoterol Fumarate (Symbicort 160-4.5 Mcg Inhaler) 160 MCG-4.5 MCG/ ACTUATION HFA.AER.AD 2 Puff Inhale through mouth TWICE DAILY Qty = 10 Comments: Last Taken:06/04/17 Time: 0820 AM Midodrine HCl (Midodrine HCl) 5 MG TABLET 1 Tablet ORAL DAILY Qty = 15 Albuterol Sulfate (Ventolin Hfa) 90 MCG HFA.AER.AD 2 Puff Inhale through mouth EVERY 4-6 HOURS NEEDED as needed for SHORTNESS OF BREATH Qty = 18 Start taking the following new medications: Calcium Acetate (Calcium Acetate) 667 MG CAPSULE 1 Capsule ORAL 3 TIMES DAILY BEFORE MEALS Qty = 90 No Refills Instructions: . Comments: Last Taken:06/04/17 Time: 4:48 PM Prednisone (Prednisone) 20 MG TABLET 0 ORAL DAILY Qty = 18 No Refills Instructions: On Take 06/05-06/07 30 MG 06/08-06/10 20 MG 06/11-06/13 10 MG THEN STOP. Comments: Last Taken: 06/04/17 Time: 0820 AM Levofloxacin (Levaquin) 500 MG TABLET 1 Tablet ORAL Q48H Qty = 4 No Refills Comments: Last Taken:06/04/17 Time: 0830 AM Copies To: Mami FARFAN,Joey Tripp; Dee Dee FARFAN,Fransisco Carver; Estela FARFAN,Leslie Fuchs
[2017-06-04] MEDS ORDERED: CALCIUM ACETAT667 M3 PO ×2 (13:39→13:53)
[2017-06-04] MEDS ORDERED: LEVAQUIN500 M1 PO (13:53)
[2017-06-04 16:00] VITALS: BP 132/70
== END 2017-06-04 17:45 | disposition home health service (06) | DRG 189 ==
LOC: ERH 10:33 → CRI 12:38 → ERHI 12:38 → ENRESERV 13:42 → CANRESERV 13:42 → EDBEDREQ 14:31 → ENRESERV 14:35 → CRI 14:39 → ERHI 14:46 → CRI 15:06 → ENTRNSPT 15:15 → EDTRNSPT 15:24 → EDTRNSPTSTS 15:25 → CMPTRNSPT 15:43 → CRI 05-30 09:28
PROVIDERS: Emergency Medicine; Internal Medicine; Internal Medicine Hematology & Oncology; Student in an Organized Health Care Education/Training Program
PROC: 5A1D70Z Performance of Urinary Filtration, Intermittent, Less than 6 Hours Per Day (ICD-10-PCS; principal; 2017-05-28)
DX: J96.21 Acute and chronic respiratory failure with hypoxia (principal); E87.4 Mixed disorder of acid-base balance; G93.41 Metabolic encephalopathy; I47.2 Ventricular tachycardia; I12.0 Hypertensive chronic kidney disease with stage 5 chronic kidney disease or end stage renal disease; C90.00 Multiple myeloma not having achieved remission; E11.21 Type 2 diabetes mellitus with diabetic nephropathy; N18.6 End stage renal disease; J44.1 Chronic obstructive pulmonary disease with (acute) exacerbation; I50.32 Chronic diastolic (congestive) heart failure; E83.51 Hypocalcemia; I95.9 Hypotension, unspecified; E87.5 Hyperkalemia; Z99.2 Dependence on renal dialysis; Z99.81 Dependence on supplemental oxygen; Z79.4 Long term (current) use of insulin; J96.22 Acute and chronic respiratory failure with hypercapnia; E11.22 Type 2 diabetes mellitus with diabetic chronic kidney disease; Z79.51 Long term (current) use of inhaled steroids; Z87.891 Personal history of nicotine dependence; D63.1 Anemia in chronic kidney disease; R41.0 Disorientation, unspecified
CPT/HCPCS: CCU; 36415; 71045; 82436; 87040; 87070; 87804; 87804-59; 93005; 93010; 97110-GO; 97116-GO; 97161-GP; 99291; J0456; J0636; J0696; J0780; J0885; J1644; J1815; J2060; J2920; J2930; J3250; J3490; J7060; J7608